=== PATIENT | female | born 1945 | race African-American/Black ===

== ENCOUNTER 2016-05-11 03:28 | Observation (INO) | payer MEDICARE, BC ==
[2016-05-11] MEDS ORDERED: ASPIRIN 81 MG TABLET, CHEWABLE PO ONE (04:27)
[2016-05-11 05:11] LABS: ABSOLUTE EOSINOPHILS # (AUTO) 0.1 10^3/uL (0.0-0.6); ABSOLUTE LYMPHOCYTES (AUTO) 1.4 10^3/uL (0.5-4.7); ABSOLUTE MONOCYTES (AUTO) 0.7 10^3/uL (0.1-1.4); ABSOLUTE NEUT (AUTO) 3.6 10^3/uL (1.7-8.2); BASOPHILS % (AUTO) 0.8 % (0-2); EOSINOPHILS % (AUTO) 2.3 % (0-6); HEMATOCRIT 20.2 % (36.0-47.0); HGB HCT DIFFERENCE -0.4; LYMPHOCYTES % (AUTO) 24.4 % (13-45); MEAN CORPUSCULAR HEMOGLOBIN 24.7 pg (27.0-33.4); MEAN CORPUSCULAR HGB CONC 32.5 g/dL (32.0-36.0); MEAN CORPUSCULAR VOLUME 76 fl (80-97); RED BLOOD COUNT 2.66 10^6/uL (3.72-5.28); RED CELL DISTRIBUTION WIDTH 18.2 % (11.5-14.0); SEGMENTED NEUTROPHILS % (AUTO) 60.5 % (42-78); WHITE BLOOD COUNT 5.9 10^3/uL (4.0-10.5)
[2016-05-11 05:24] LABS: ALANINE AMINOTRANSFERASE 15 U/L (9-52); ALBUMIN 3.4 g/dL (3.5-5.0); ALKALINE PHOSPHATASE 52 U/L (38-126); ANION GAP 8 (5-19); ASPARTATE AMINO TRANSFERASE 17 U/L (14-36); BILIRUBIN,TOTAL 0.4 mg/dL (0.2-1.3); BLOOD UREA NITROGEN 23 mg/dL (7-20); CALCIUM 9.5 mg/dL (8.4-10.2); CARBON DIOXIDE 24 mmol/L (22-30); CHLORIDE 108 mmol/L (98-107); CREATINE KINASE 36 U/L (30-135); CREATININE RESULT 1.29 mg/dL (0.52-1.25); GLUCOSE 92 mg/dL (75-110); SODIUM 139.9 mmol/L (137-145)
[2016-05-11 05:26] LABS: HEMOGLOBIN 6.6 g/dL (12.0-15.5)
[2016-05-11 05:38] LABS: CREATINE KINASE MB < 0.22 ng/mL (<4.55); TROPONIN I < 0.012 ng/mL
--- NOTE | 2016-05-11 08:30 | EKG REPORT ---
SEVERITY:- BORDERLINE ECG - SINUS RHYTHM PROBABLE LEFT ATRIAL ABNORMALITY BORDERLINE T ABNORMALITIES, INFERIOR LEADS : Confirmed by: Shena Jorgensen 11-May-2016 08:30:33
[2016-05-11] MEDS ORDERED: NORMAL SALINE 250 ML IV PRN (08:56)
--- NOTE | 2016-05-11 09:02 | ER Document Report ---
ED General <LUANN ALVA - Last Filed: 05/11/16 10:33> - General Mode of Arrival: Ambulatory Information source: Patient TRAVEL OUTSIDE OF THE [place] IN LAST 30 DAYS: No - HPI Patient complains to provider of: chest pain Onset/Duration: Sudden, Constant, Worse Quality of pain: Pressure Associated symptoms: Weakness Exacerbated by: Denies Relieved by: Denies <KHUSHBU FITCH - Last Filed: 06/10/16 13:55> - General Chief Complaint: Chest Pain Stated Complaint: CHEST PAIN Notes: Patient is a 71-year-old female presenting to the emergency department concerned of sternal chest pain onset 05/08/2016. Patient states the pain feels more like a pressure and it has been constant, worse today. Patient states she's been weak and tired for the past 2 weeks. Patient denies blood in her stool, rectal bleeding, or cough/ congestion. Patient has a history of hypertension, hyperlipidemia, diabetes, smoking, MT, and cardiac catheterization. Patient's primary care physician is Dr. Alfredo. (KHUSHBU FITCH) - Related Data Allergies/Adverse Reactions: No Known Drug Allergies Allergy (Verified 05/11/16 03:41) sesonal allergy Allergy (Uncoded 03/14/14 14:29) Home Medications: Current Home Medications Amlodipine Besylate [Norvasc 10 mg Tablet] 5 mg PO DAILY 05/11/16 [History] Aspirin [Ecotrin 81 mg EC Tablet] 81 g PO DAILY 05/11/16 [History] Carvedilol [Coreg 25 mg Tablet] 25 mg PO BID 05/11/16 [History] Clopidogrel Bisulfate [Clopidogrel] 75 mg PO DAILY 05/11/16 [History] Fenofibrate Nanocrystallized [Tricor 145 mg Tablet] 145 mg PO DAILY 05/11/16 [ History] Hydrochlorothiazide [Hydrodiuril 12.5 mg Capsule] 12.5 mg PO DAILY 05/11/16 [ History] Losartan Potassium [Cozaar 50 mg Tablet] 50 mg PO DAILY 05/11/16 [History] Nateglinide [Starlix] 120 mg PO TID 05/11/16 [History] Past Medical History <LUANN ALVA - Last Filed: 05/11/16 10:33> - General Information source: Patient - Social History Smoking Status: Current Every Day Smoker Chew tobacco use (# tins/day): No Frequency of alcohol use: None Drug Abuse: None Lives with: Spouse/Significant other Family History: Reviewed & Not Pertinent - Past Medical History Cardiac Medical History: Reports: Hx Heart Attack, Hx Hypercholesterolemia, Hx Hypertension Pulmonary Medical History: Reports: Hx Pneumonia - As a child Neurological Medical History: Denies: Hx Cerebrovascular Accident Endocrine Medical History: Reports: Hx Diabetes Mellitus Type 2 Renal/ Medical History: Denies: Hx Peritoneal Dialysis Musculoskeltal Medical History: Reports Hx Arthritis - Everywhere Psychiatric Medical History: Denies: Hx Depression Past Surgical History: Reports: Hx Appendectomy, Hx Cardiac Catheterization - w/ stent, Hx Cholecystectomy - Immunizations Hx Diphtheria, Pertussis, Tetanus Vaccination: Yes <KHUSHBU FITCH - Last Filed: 06/10/16 13:55> - Medical History Notes: Hx anemia with blood transfusion (KHUSHBU FITCH) Review of Systems - Review of Systems Constitutional: See HPI, Malaise, Weakness EENT: No symptoms reported Cardiovascular: See HPI, Chest pain - Pressure Respiratory: No symptoms reported. denies: Cough Gastrointestinal: No symptoms reported. denies: Blood streaked bowels, Rectal bleeding Genitourinary: No symptoms reported Female Genitourinary: No symptoms reported Musculoskeletal: No symptoms reported Skin: No symptoms reported Hematologic/Lymphatic: No symptoms reported Neurological/Psychological: No symptoms reported -: Yes All other systems reviewed and negative <KHUSHBU FITCH - Last Filed: 06/10/16 13:55> Physical Exam - General General appearance: Alert - HEENT Head: Normocephalic, Atraumatic Eyes: Normal Pupils: PERRL - Respiratory Respiratory status: No respiratory distress Chest status: Tender - Mid chest wall mildly tender to palpation. Breath sounds: Normal Chest palpation: Normal - Cardiovascular Rhythm: Regular Heart sounds: Normal auscultation Murmur: No - Abdominal Inspection: Normal Distension: No distension Bowel sounds: Normal Tenderness: Nontender Organomegaly: No organomegaly - Rectal Hemorrhoids: None - No external hemorrhoids. - Back Back: Normal, Nontender - Extremities General upper extremity: Normal inspection General lower extremity: Normal inspection - Neurological Neuro grossly intact: Yes Cognition: Normal [place] Coma Scale Eye Opening: Spontaneous [place] Coma Scale Verbal: Oriented Derian Coma Scale Motor: Obeys Commands [place] Coma Scale Total: 15 Speech: Normal - Psychological Associated symptoms: Normal affect, Normal mood - Skin Skin Temperature: Warm Skin Moisture: Dry Skin Color: Pale <KHUSHBU FITCH - Last Filed: 06/10/16 13:55> - Vital signs Vitals: Temp Pulse Resp BP Pulse Ox 98.1 F 71 16 169/64 H 100 05/11/16 03:42 05/11/16 03:42 05/11/16 03:42 05/11/16 03:42 05/11/16 03:42 Course - Laboratory Result Diagrams: 05/11/16 04:55 05/11/16 04:55 - EKG Interpretation by Me EKG shows normal: Sinus rhythm, Hancock, Intervals, QRS Complexes. abnormal: ST-T Waves - Borderline inferior T abnormalities Rate: Normal - 73 Rhythm: NSR P Waves: LAE When compared to previous EKG there are: No significant change - Consults Dr. Alfredo Time consulted: 10:20 Consulted provider: will see as inpatient <LUANN ALVA - Last Filed: 05/11/16 10:33> - Laboratory Result Diagrams: 05/11/16 19:10 05/11/16 04:55 <KHUSHBU FITCH - Last Filed: 06/10/16 13:55> - Re-evaluation Re-evalutation: 05/11/16 10:33 Stool is heme negative (LUANN ALVA) - Vital Signs Vital signs: Temp Pulse Resp BP Pulse Ox 98.0 F 74 16 162/74 H 100 05/11/16 20:24 05/11/16 20:24 05/11/16 20:24 05/11/16 20:24 05/11/16 20:24 - Laboratory Laboratory results interpreted by me: 05/11/16 05/11/16 05/11/16 04:55 04:55 04:55 RBC 2.66 L Hgb 6.6 L Hct 20.2 L MCV 76 L MCH 24.7 L RDW 18.2 H Retic Count (auto) 3.83 H Chloride 108 H BUN 23 H Creatinine 1.29 H Est GFR ( Amer) 49 L Est GFR (Non-Af Amer) 41 L Iron Ferritin Total Protein 6.0 L Albumin 3.4 L Crossmatch 05/11/16 05/11/16 04:55 09:10 RBC Hgb Hct MCV MCH RDW Retic Count (auto) Chloride BUN Creatinine Est GFR ( Amer) Est GFR (Non-Af Amer) Iron 28.5 L Ferritin 9.02 L Total Protein Albumin Crossmatch See Detail Discharge - Discharge Admitting Provider: [facility] Unit Admitted: Telemetry <LUANN ALVA - Last Filed: 05/11/16 10:33> <KHUSHBU FITCH - Last Filed: 06/10/16 13:55> - Discharge Clinical Impression: Iron deficiency anemia Qualifiers: Iron deficiency anemia type: unspecified iron deficiency Qualified Code(s): D50.9 - Iron deficiency anemia, unspecified Chest pain Qualifiers: Chest pain type: unspecified Qualified Code(s): R07.9 - Chest pain, unspecified Scribe Documentation - Scribe Written by Scribe:: Khushbu Fitch 05/11/2016 0857 acting as scribe for :: Colton <KHUSHBU FITCH - Last Filed: 06/10/16 13:55>
[2016-05-11 09:58] LABS: APPEARANCE,URINE CLEAR; BILIRUBIN,URINE NEGATIVE (NEGATIVE); GLUCOSE, URINE NEGATIVE (NEGATIVE); KETONES,URINE NEGATIVE (NEGATIVE); LEUKOCYTE ESTERASE,URINE NEGATIVE (NEGATIVE); NITRITE,URINE NEGATIVE (NEGATIVE); PROTEIN,URINE NEGATIVE (NEGATIVE); URINE SPECIFIC GRAVITY 1.005; UROBILINOGEN,URINE NEGATIVE mg/dL (<2.0)
[2016-05-11 10:10] LABS: FERRITIN 9.02 ng/mL (11.1-264.0)
[2016-05-11 10:40] LABS: FOLATE 6.53 ng/mL (>2.76)
[2016-05-11] MEDS ORDERED: DEXTROSE 40% GEL 15 GM TUBE PO PRN ×2 (14:49)
[2016-05-11] MEDS ORDERED: INSULIN LISPRO 100 UNIT/ML 3 ML VIAL SUBCUT PRN (14:49)
[2016-05-11] MEDS ORDERED: DEXTROSE 50%-WATER 25 GM/50 ML DISP.SYRIN IV PRN ×2 (14:49)
[2016-05-11] MEDS ORDERED: GLUCAGON,HUMAN RECOMB 1 MG INJ IM PRN (14:49)
[2016-05-11] MEDS ORDERED: (PENDING PHARMACY ID) (Nateglinide [Starlix] 120 MG) PO SCH (15:00)
[2016-05-11] MEDS ORDERED: AMLODIPINE BESYLATE 10 MG TABLET PO SCH (15:00)
[2016-05-11] MEDS ORDERED: AMLODIPINE BESYLATE 5 MG TABLET PO ONE (15:30)
[2016-05-11] MEDS ORDERED: FENOFIBRATE NANOCRYSTALLIZED 145 MG TABLET PO ONE (15:30)
[2016-05-11] MEDS ORDERED: AMLODIPINE BESYLATE 10 MG TABLET PO ONE (15:30)
[2016-05-11] MEDS ORDERED: LOSARTAN POTASSIUM 50 MG TABLET PO ONE (15:30)
[2016-05-11] MEDS ORDERED: HYDROCHLOROTHIAZIDE 12.5 MG CAPSULE PO ONE (15:30)
[2016-05-11] MEDS ORDERED: NATEGLINIDE 60 MG TABLET PO SCH (16:00)
[2016-05-11] MEDS ORDERED: CLONIDINE HCL 0.2 MG TABLET PO ONE (18:45)
[2016-05-11 19:23] LABS: ABSOLUTE EOSINOPHILS # (AUTO) 0.1 10^3/uL (0.0-0.6); ABSOLUTE LYMPHOCYTES (AUTO) 1.6 10^3/uL (0.5-4.7); ABSOLUTE MONOCYTES (AUTO) 0.7 10^3/uL (0.1-1.4); ABSOLUTE NEUT (AUTO) 4.1 10^3/uL (1.7-8.2); BASOPHILS % (AUTO) 0.5 % (0-2); HEMATOCRIT 30.2 % (36.0-47.0); HGB HCT DIFFERENCE 0.1; LYMPHOCYTES % (AUTO) 24.6 % (13-45); MEAN CORPUSCULAR HEMOGLOBIN 26.2 pg (27.0-33.4); MEAN CORPUSCULAR HGB CONC 33.3 g/dL (32.0-36.0); MEAN CORPUSCULAR VOLUME 79 fl (80-97); MONOCYTES % (AUTO) 10.9 % (3-13); RED BLOOD COUNT 3.84 10^6/uL (3.72-5.28); WHITE BLOOD COUNT 6.6 10^3/uL (4.0-10.5)
[2016-05-11 19:32] LABS: HEMOGLOBIN 10.1 g/dL (12.0-15.5)
[2016-05-11 20:05] VITALS: BP 162/74
--- NOTE | 2016-05-11 20:14 | PDOC H&P ---
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 Patient feels better and she be discharged home today Past Medical History Cardiac Medical History: Reports: Hyperlipidema, Hypertension Pulmonary Medical History: Reports: Pneumonia - As a child Endocrine Medical History: Reports: Diabetes Mellitus Type 2 Musculoskeltal Medical History: Reports: Arthritis - Everywhere Hematology: Reports: Anemia Past Surgical History Past Surgical History: Reports: Appendectomy, Cardiac Catheterization - w/stent , Cholecystectomy Social History Lives with: Spouse/Significant other Smoking Status: Current Some Day Smoker Cigarettes Packs Per Day: 4 Number of Years Smokin Frequency of Alcohol Use: None Hx Recreational Drug Use: No Drugs: None Hx Prescription Drug Abuse: No - Advance Directive Resuscitation Status: Full Code Family History Family History: Reviewed & Not Pertinent Parental Family History Reviewed: Yes Children Family History Reviewed: Yes Sibling(s) Family History Reviewed.: Yes Medication/Allergy Home Medications: Amlodipine Besylate [Norvasc 10 mg Tablet] 5 mg PO DAILY 05/11/16 Aspirin [Ecotrin 81 mg EC Tablet] 81 g PO DAILY 05/11/16 Carvedilol [Coreg 25 mg Tablet] 25 mg PO BID 05/11/16 Clopidogrel Bisulfate [Clopidogrel] 75 mg PO DAILY 05/11/16 Fenofibrate Nanocrystallized [Tricor 145 mg Tablet] 145 mg PO DAILY 05/11/16 Hydrochlorothiazide [Hydrodiuril 12.5 mg Capsule] 12.5 mg PO DAILY 05/11/16 Losartan Potassium [Cozaar 50 mg Tablet] 50 mg PO DAILY 05/11/16 Nateglinide [Starlix] 120 mg PO TID 05/11/16 Allergies/Adverse Reactions: No Known Drug Allergies Allergy (Verified 05/11/16 03:41) sesonal allergy Allergy (Uncoded 03/14/14 14:29) Review of Systems Constitutional: ABSENT: chills, fever(s), headache(s), weight gain, weight loss Eyes: ABSENT: visual disturbances Ears: ABSENT: hearing changes Cardiovascular: PRESENT: dyspnea on exertion Respiratory: ABSENT: cough, hemoptysis Gastrointestinal: ABSENT: abdominal pain, constipation, diarrhea, hematemesis, hematochezia, nausea, vomiting Genitourinary: ABSENT: dysuria, hematuria Musculoskeletal: ABSENT: joint swelling Integumentary: ABSENT: rash, wounds Neurological: ABSENT: abnormal gait, abnormal speech, confusion, dizziness, focal weakness, syncope Psychiatric: ABSENT: anxiety, depression, homidical ideation, suicidal ideation Endocrine: ABSENT: cold intolerance, heat intolerance, menstrual abnormalities, polydipsia, polyuria Hematologic/Lymphatic: ABSENT: easy bleeding, easy bruising, lymphadenopathy Physical Exam Vital Signs: Temp Pulse Resp BP Pulse Ox 98.0 F 74 16 162/74 H 100 05/11/16 20:03 05/11/16 20:03 05/11/16 20:03 05/11/16 20:03 05/11/16 20:03 Intake & Output 05/10/16 05/11/16 05/12/16 06:59 06:59 06:59 Intake Total 300 Balance 300 General appearance: PRESENT: no acute distress, well-developed, well-nourished Head exam: PRESENT: atraumatic, normocephalic Eye exam: PRESENT: conjunctiva pink, EOMI, PERRLA Ear exam: PRESENT: normal external ear exam Mouth exam: PRESENT: moist, tongue midline Neck exam: PRESENT: full ROM Respiratory exam: PRESENT: clear to auscultation kenney Cardiovascular exam: PRESENT: RRR, +S1, +S2 Pulses: PRESENT: normal dorsalis pedis pul, +2 pedal pulses bilateral Vascular exam: PRESENT: normal capillary refill GI/Abdominal exam: PRESENT: normal bowel sounds, soft Rectal exam: PRESENT: deferred Neurological exam: PRESENT: alert, awake, oriented to person, oriented to place , oriented to time, oriented to situation, CN II-XII grossly intact Psychiatric exam: PRESENT: appropriate affect, normal mood Skin exam: PRESENT: dry, intact, warm Results Laboratory Results: 05/11/16 19:10 05/11/16 19:10 WBC 6.6 RBC 3.84 Hgb 10.1 L D Hct 30.2 L MCV 79 L MCH 26.2 L MCHC 33.3 RDW 17.0 H Plt Count 256 Seg Neutrophils % 62.0 Lymphocytes % 24.6 Monocytes % 10.9 Eosinophils % 2.0 Basophils % 0.5 Absolute Neutrophils 4.1 Absolute Lymphocytes 1.6 Absolute Monocytes 0.7 Absolute Eosinophils 0.1 Absolute Basophils 0.0 Impressions: Chest X-Ray 05/11/16 04:27 IMPRESSION: HEART ENLARGED WITHOUT FAILURE. NO OTHER SIGNIFICANT RADIOGRAPHIC FINDING IN THE CHEST. Assessment & Plan - Diagnosis (1) Iron deficiency anemia due to chronic blood loss Is this a current diagnosis for this admission?: YesPlan: Patient was admitted for observation and blood transfusion, she was transfused with 2 units of packed red blood cells
[2016-05-11] MEDS ORDERED: CARVEDILOL 12.5 MG TABLET PO SCH (22:00)
[2016-05-12] MEDS ORDERED: FENOFIBRATE NANOCRYSTALLIZED 145 MG TABLET PO SCH (10:00)
[2016-05-12] MEDS ORDERED: LOSARTAN POTASSIUM 50 MG TABLET PO SCH (10:00)
[2016-05-12] MEDS ORDERED: AMLODIPINE BESYLATE 5 MG TABLET PO SCH (10:00)
[2016-05-12] MEDS ORDERED: HYDROCHLOROTHIAZIDE 12.5 MG CAPSULE PO SCH (10:00)
== END 2016-05-11 21:24 | disposition home or self-care (01) ==
LOC: ER 03:28 → UNDOADMOB 11:09 → EH 11:09 → 3S 17:49
PROVIDERS: ADMIT Internal Medicine; ATTEND Internal Medicine
PROC: 30233N1 Transfusion of Nonautologous Red Blood Cells into Peripheral Vein, Percutaneous Approach (ICD-10-PCS; principal; 2016-05-11)
DX: D50.0 Iron deficiency anemia secondary to blood loss (chronic) (principal); I10 Essential (primary) hypertension; E78.5 Hyperlipidemia, unspecified; E11.9 Type 2 diabetes mellitus without complications; F17.210 Nicotine dependence, cigarettes, uncomplicated; I25.2 Old myocardial infarction
CPT/HCPCS: 93005; 99285; 86900; 86901; 36415; 82553; 36430; 86850; 82962; 82607; 82550; 82728; 82746; 83540; 83550; 85025; 82272; 85045; 80053; 81001; 84484; 84466; 86920; 71010; 93010; G0378 ×2; P9016; A9270 ×7; J3490

== ENCOUNTER 2016-07-21 14:48 | Day surgery (SDC) | payer MEDICARE, BC ==
[~2016-07-21 14:48] MED LIST: DIPHENHYDRAMINE HCL 50 MG/ML VIAL IV PRN; EPINEPHRINE INJ 1 MG/10 ML DISP.SYRIN ONE; FENTANYL CITRATE INJ/PF 100 MCG/2 ML AMPUL IV PRN; FLUMAZENIL INJ 0.5 MG/5 ML VIAL IV ONE; GLUCAGON,HUMAN RECOMB 1 MG INJ ONE; MEPERIDINE HCL/PF INJ 25 MG/1 ML DISP.SYRIN IV PRN; MIDAZOLAM 2 MG/2 ML INJ ONE; MORPHINE SULFATE 10 MG/ML INJ IV PRN; NALOXONE HCL INJ/PF 0.4 MG/1 ML SDV ONE; ONDANSETRON HCL INJ/PF 4 MG/2 ML SDV IV PRN; OXYCODONE-ACETAMINOPHEN 5-325 MG TABLET PO PRN; PROMETHAZINE HCL INJ 25 MG/1 ML VIAL IV PRN
[2016-07-21] MEDS: FENTANYL CITRATE INJ/PF 100 MCG/2 ML AMPUL ONE ×2 (16:58→17:03)
--- NOTE | 2016-07-21 17:18 | Operative Report ---
Operative Report DATE OF SURGERY: 07/21/16 Operative Report: Pre-op diagnosis: Iron deficiency anemia and angiodysplasia noted on capsule endoscopy Post-op diagnosis: Multiple jejunal angiodysplasia Surgery: Esophagogastroduodenoscopy with enteroscopy and argon plasma coagulation Medications: Versed 2mg Fentanyl 100mcg IV push Tissue removed: None Procedure: After informed consent obtained from patient, the throat was sprayed with Hurricane and conscious sedation was achieved. The upper endoscope was inserted into the esophagus under direct vision and advanced into the stomach. The duodenum was entered and the scope passed to 40-50 cm beyond the ligament of Treitz. Endoscope was then slowly pulled out of the patient as the mucosa was examined into details. Four small angiodysplasia one of which was actively bleeding were treated in the small bowel. Patient tolerated procedure well. Findings Esophagus: Normal Z-line at: 40 cm Antrum: Mild erythema Body: Normal Fundus: Normal Duodenum first part: Normal Duodenum second part: Normal Jejunum: Four angiodysplasia treated with APC Plan: Follow H&H and transfuse as needed OPERATION: .
--- NOTE | 2016-07-21 17:22 | PDOC DISCHARGE SUMMARY ---
Discharge Summary (SDC) - Discharge Final Diagnosis: Small bowel angiodysplasia Date of Surgery: 07/21/16 Condition: Stable Treatment or Instructions: Resume Plavix on 07/23/2016. Continue aspirin from today Discharge Diet: As Tolerated Discharge Activity: Activity As Tolerated Report the Following to Your Physician Immediately: Nausea, Vomiting, Swelling, Warmth, Increased Soreness
[2016-07-21 18:12] VITALS: BP 145/76
== END 2016-07-21 18:15 | disposition home or self-care (01) ==
LOC: END 14:48
PROVIDERS: ATTEND Internal Medicine Gastroenterology
PROC: 0W3P8ZZ Control Bleeding in Gastrointestinal Tract, Via Natural or Artificial Opening Endoscopic (ICD-10-PCS; principal; 2016-07-21 15:30)
DX: K31.811 Angiodysplasia of stomach and duodenum with bleeding (principal); D50.0 Iron deficiency anemia secondary to blood loss (chronic); I10 Essential (primary) hypertension; I25.10 Atherosclerotic heart disease of native coronary artery without angina pectoris
CPT/HCPCS: 44366; 82962; J2250; J0171; J1610; J2310; J3010; J3490

== ENCOUNTER → 2016-08-05 | Outpatient (CLI) | payer MEDICARE, BC | LOC: WI 13:30 | PROVIDERS: ATTEND Internal Medicine | DX: Z12.31 Encounter for screening mammogram for malignant neoplasm of breast (principal) | CPT/HCPCS: 77067; G0202 ==

== ENCOUNTER → 2017-08-20 | Outpatient (CLI) | payer MEDICARE, OTHER ==
--- NOTE | 2017-08-23 12:46 | WOMENS IMAGING REPORT ---
EXAM DESCRIPTION: 3D SCREENING MAMMO BILAT COMPLETED DATE/TIME: 08/20/2017 8:54 am REASON FOR STUDY: SCREENING MAMMO Z12.31 ENCNTR SCREEN MAMMOGRAM FOR MALIGNANT NEOPLASM OF FLAKO COMPARISON: 08/05/2016, 05/27/2015, and 05/25/2014. TECHNIQUE: Standard craniocaudal and mediolateral oblique views of each breast recorded using digita l acquisition and breast tomosynthesis. LIMITATIONS: None. FINDINGS: RIGHT BREAST MASSES: No suspicious masses. CALCIFICATIONS: No new or suspicious calcifications. ARCHITECTURAL DISTORTION: None. DEVELOPING DENSITY: None. ASYMMETRY: None noted. OTHER: No other significant findings. LEFT BREAST MASSES: No suspicious masses. CALCIFICATIONS: Cluster of increasing calcifications in the lower outer breast, located 11 cm from th e nipple. Other calcifications in the breasts appear unchanged. ARCHITECTURAL DISTORTION: None. DEVELOPING DENSITY: None. ASYMMETRY: None noted. OTHER: No other significant findings. Read with the assistance of CAD. .[facility] - R2 Cenova Version 1.3 .[facility] Imaging - R2 Cenova Version 1.3 .[facility] - R2 Cenova Version 2.4 .[facility] - R2 Cenova Version 2.4 .[facility] - R2 [employer] Internship Version 9.2 IMPRESSION: Cluster of increasing calcifications in the lower outer left breast. Stable mammographi c appearance of the right breast. BREAST DENSITY: c. The breasts are heterogeneously dense, which may obscure small masses. BIRAD: 0 Incomplete: Needs Additional Imaging Evaluation and/or prior Mammograms for Comparison. RECOMMENDATION: RECOMMENDED FOLLOW-UP: Recommend additional evaluation with magnification views of t he left breast. Recommend routine screening mammography of the right breast. The patient will be contacted for additional imaging. COMMENT: The patient has been notified of the results by letter per SA requirements. Additional no tification policies are in place for contacting patient with suspicious or incomplete findings. Quality ID #[id number]: The [employer] recommends an annual screening mammogram for women aged 40 years or over. This facility utilizes a reminder system to ensure that all patients receive reminder letters, and/or direct phone calls for appointments. This includes reminders for routine scr eening mammograms, diagnostic mammograms, or other Breast Imaging Interventions when appropriate. Th is patient will be placed in the appropriate reminder system. The [employer] (ACR) has developed recommendations for screening MRI of the breast s in certain patient populations, to be used in conjunction with mammography. Breast MRI surveillanc e may be appropriate for women with more than 20% lifetime risk of developing breast cancer as deter mined by genetic testing, significant family history of the disease, or history of mantle radiation f or Hodgkins Disease. ACR Practice Guidelines 2008. DBT Technology DBT is a type of tomographic mammography. With conventional mammography, overlapping breast tissue ma y make lesions difficult to detect, even with good compression. DBT uses an x-ray tube that rotates a round the breast, taking images at different angles. These images are then combined to create thin sl ices of the breast that the radiologist can view as a 3D reconstruction. The [employer] unit can perform full-field digital mammograms (2D imaging); or DBT (3D imaging); or both, in a combination mode that quickly performs both the mammogram and the tomosynthesis scan while the breast is still compressed. PQRS 6045F: Fluoroscopic imaging is not utilized for breast tomosynthesis. TECHNICAL DOCUMENTATION: FINDING NUMBER: (1) ASSESSMENT: (1) JOB ID: [id number] [employer]- All Rights Reserved Reading location - IP/workstation name: [email or web address]-[email or web address]
== END ==
LOC: WI 12-14 08:45
PROVIDERS: ATTEND Internal Medicine
DX: Z12.31 Encounter for screening mammogram for malignant neoplasm of breast (principal); R92.0 Mammographic microcalcification found on diagnostic imaging of breast
CPT/HCPCS: 77063; 77067

== ENCOUNTER → 2017-08-27 | Outpatient (CLI) | payer MEDICARE, BC | LOC: WI 08:37 | PROVIDERS: ATTEND Internal Medicine | DX: R92.0 Mammographic microcalcification found on diagnostic imaging of breast (principal) ==

== ENCOUNTER → 2018-07-22 | Outpatient (CLI) | payer MEDICARE ==
--- NOTE | 2018-07-22 13:36 | RADIOLOGY REPORT (SQ) ---
EXAM DESCRIPTION: HIP RIGHT AP/LATERAL COMPLETED DATE/TIME: 07/22/2018 1:23 pm REASON FOR STUDY: PAIN IN RT HIP M25.551 PAIN IN RIGHT HIP COMPARISON: None. NUMBER OF VIEWS: Two views. TECHNIQUE: AP and frog-leg view of the right hip. LIMITATIONS: None. FINDINGS: MINERALIZATION: Normal. RIGHT HIP: No acute fracture dislocation. No suspicious lesions. Mild joint space narrowing. There is subchondral sclerosis. OPPOSITE HIP: Left hip demonstrates mild joint space narrowing and subchondral sclerosis. SOFT TISSUES: There is vascular calcification. OTHER: No other significant finding. 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 No acute findings. TECHNICAL DOCUMENTATION: JOB ID: [id number] [employer]- All Rights Reserved Reading location - IP/workstation name: [email or web address]
== END ==
LOC: OD 12:51
PROVIDERS: ATTEND Internal Medicine
DX: M25.551 Pain in right hip (principal)

== ENCOUNTER → 2019-04-07 | Outpatient (CLI) | payer MEDICARE ==
[2019-04-07 11:48] LABS: HEMATOCRIT 34.4 % (36.0-47.0); HEMOGLOBIN 12.3 g/dL (12.0-15.5); MEAN CORPUSCULAR HEMOGLOBIN 28.4 pg (27.0-33.4); MEAN CORPUSCULAR HGB CONC 35.8 g/dL (32.0-36.0); MEAN CORPUSCULAR VOLUME 79 fl (80-97); PLATELET COUNT 286 10^3/uL (150-450); RED BLOOD COUNT 4.34 10^6/uL (3.72-5.28); RED CELL DISTRIBUTION WIDTH 14.9 % (11.5-14.0); WHITE BLOOD COUNT 7.7 10^3/uL (4.0-10.5)
[2019-04-07 12:07] LABS: ALBUMIN 3.9 g/dL (3.5-5.0); ALKALINE PHOSPHATASE 51 U/L (38-126); ANION GAP 13 (5-19); ASPARTATE AMINO TRANSFERASE 19 U/L (14-36); BILIRUBIN,DIRECT 0.5 mg/dL (0.0-0.4); BILIRUBIN,TOTAL 0.5 mg/dL (0.2-1.3); BLOOD UREA NITROGEN 25 mg/dL (7-20); CALCIUM 9.7 mg/dL (8.4-10.2); CARBON DIOXIDE 25 mmol/L (22-30); CHLORIDE 94 mmol/L (98-107); GLUCOSE 105 mg/dL (75-110); POTASSIUM 4.6 mmol/L (3.6-5.0); TOTAL PROTEIN 7.4 g/dL (6.3-8.2)
== END ==
LOC: OD 11:07
PROVIDERS: ATTEND Internal Medicine Gastroenterology
DX: R10.13 Epigastric pain (principal)
CPT/HCPCS: 36415; 80048; 80076; 83690; 85027

== ENCOUNTER → 2019-04-13 | Outpatient (CLI) | payer MEDICARE ==
--- NOTE | 2019-04-13 13:06 | RADIOLOGY REPORT (SQ) ---
EXAM DESCRIPTION: CT ABDOMEN WITH IV ORAL CONT COMPLETED DATE/TIME: 04/13/2019 10:46 am REASON FOR STUDY: R10.13 EPIGASTRIC PAIN, K86.9 DISEASE OF PANCREAS, UNSPECIFIED R10.13 EPIGASTRIC PAIN K86.9 DISEASE OF PANCREAS, UNSPECIFIED COMPARISON: None. TECHNIQUE: CT scan of the abdomen performed with intravenous and with oral contrast using helical sc anning technique with dynamic intravenous contrast injection. Images reviewed with lung, soft tissue, and bone windows. Reconstructed coronal and sagittal MPR images reviewed. Delayed images for evaluat ion of the urinary system also acquired and evaluated. All images stored on PACS. All CT scanners at this facility use dose modulation, iterative reconstruc tion, and/or weight based dosing when appropriate to reduce radiation dose to as low as reasonably ac hievable (ALARA). [facility]: Dose Right [facility]: CareDose [facility]: Dose Right [facility]: Teradose 4D [facility]: [employer] CONTRAST TYPE AND DOSE: contrast/concentration: Isovue 350.00 mg/ml; Total Contrast Delivered: 78.0 ml; Total Saline Delivered: 67.0 ml RENAL FUNCTION: Creatinine 1.4 RADIATION DOSE: CT Rad equipment meets quality standard of care and radiation dose reduction techniq ues were employed. CTDIvol: 3.4 - 3.4 mGy. DLP: 244 mGy-cm. . LIMITATIONS: None. FINDINGS: LOWER CHEST: See separate report of the CT of the chest. LIVER: Normal size. No masses. No dilated ducts. SPLEEN: Normal size. No focal lesions. PANCREAS: No masses. No significant calcifications. No adjacent inflammation or peripancreatic fluid collections. Pancreatic duct not dilated. GALLBLADDER: No identified stones by CT criteria. No inflammatory changes to suggest cholecystitis. ADRENAL GLANDS: No significant masses or asymmetry. RIGHT KIDNEY AND URETER: Hypoplastic right kidney. No stones. No hydronephrosis. . LEFT KIDNEY AND URETER: Compensatory hypertrophy. No significant calcifications. No hydronephrosi s or hydroureter. AORTA AND VESSELS: No aneurysm. No dissection. Renal arteries, SMA, celiac without stenosis. RETROPERITONEUM: No retroperitoneal adenopathy, hemorrhage or masses. BOWEL AND PERITONEAL CAVITY: No masses or inflammatory changes. No free fluid or peritoneal masses. APPENDIX: Not included. ABDOMINAL WALL: No masses. No hernias. BONES: No significant or acute findings. OTHER: No other significant finding. 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 No acute findi ngs in the abdomen. TECHNICAL DOCUMENTATION: JOB ID: [id number] Quality ID # [id number]: Final reports with documentation of one or more dose reduction techniques (e.g., Au tomated exposure control, adjustment of the mA and/or kV according to patient size, use of iterative reconstruction technique) 2010 [employer]- All Rights Reserved Reading location - IP/workstation name: [email or web address]
== END ==
LOC: RAD 10:05
PROVIDERS: ATTEND Internal Medicine Gastroenterology
DX: R10.13 Epigastric pain (principal); K86.9 Disease of pancreas, unspecified
CPT/HCPCS: 74160; 82565

== ENCOUNTER → 2019-06-06 | Outpatient (CLI) | payer MEDICARE ==
[2019-06-06 10:46] LABS: ABSOLUTE BASOPHILS # (AUTO) 0.1 10^3/uL (0.0-0.2); ABSOLUTE EOSINOPHILS # (AUTO) 0.1 10^3/uL (0.0-0.6); ABSOLUTE LYMPHOCYTES (AUTO) 1.9 10^3/uL (0.5-4.7); ABSOLUTE MONOCYTES (AUTO) 0.7 10^3/uL (0.1-1.4); ABSOLUTE NEUT (AUTO) 6.9 10^3/uL (1.7-8.2); BASOPHILS % (AUTO) 0.8 % (0-2); EOSINOPHILS % (AUTO) 1.3 % (0-6); HEMATOCRIT 32.4 % (36.0-47.0); HEMOGLOBIN 11.8 g/dL (12.0-15.5); LYMPHOCYTES % (AUTO) 19.9 % (13-45); MEAN CORPUSCULAR HEMOGLOBIN 28.1 pg (27.0-33.4); MEAN CORPUSCULAR HGB CONC 36.4 g/dL (32.0-36.0); MEAN CORPUSCULAR VOLUME 77 fl (80-97); MONOCYTES % (AUTO) 7.3 % (3-13); PLATELET COUNT 486 10^3/uL (150-450); RED CELL DISTRIBUTION WIDTH 15.2 % (11.5-14.0); SEGMENTED NEUTROPHILS % (AUTO) 70.7 % (42-78); TOTAL CELLS COUNTED % (AUTO) 100 %; WHITE BLOOD COUNT 9.8 10^3/uL (4.0-10.5)
[2019-06-06 10:51] LABS: APPEARANCE,URINE CLOUDY; BILIRUBIN,URINE NEGATIVE (NEGATIVE); COLOR,URINE YELLOW; GLUCOSE, URINE NEGATIVE (NEGATIVE); KETONES,URINE NEGATIVE (NEGATIVE); LEUKOCYTE ESTERASE,URINE LARGE (NEGATIVE); NITRITE,URINE NEGATIVE (NEGATIVE); PROTEIN,URINE 100 mg/dL (NEGATIVE); URINE SPECIFIC GRAVITY 1.011
[2019-06-06 12:03] LABS: ANION GAP 13 (5-19); BLOOD UREA NITROGEN 15 mg/dL (7-20); CARBON DIOXIDE 26 mmol/L (22-30); CHLORIDE 89 mmol/L (98-107); GLUCOSE 107 mg/dL (75-110); PHOSPHORUS 3.8 mg/dL (2.5-4.5); POTASSIUM 4.4 mmol/L (3.6-5.0)
[2019-06-06 16:57] LABS: URINE SODIUM 60 mmol/L (30-90)
[2019-06-06 17:07] LABS: OSMOLALITY,URINE 334 mOsm/kg (300-900)
== END ==
LOC: OD 10:10
PROVIDERS: ATTEND Physician Assistant Medical
DX: E11.22 Type 2 diabetes mellitus with diabetic chronic kidney disease (principal); I12.9 Hypertensive chronic kidney disease with stage 1 through stage 4 chronic kidney disease, or unspecified chronic kidney disease; N18.3 Chronic kidney disease, stage 3 (moderate); D63.1 Anemia in chronic kidney disease; E87.1 Hypo-osmolality and hyponatremia; E87.5 Hyperkalemia
CPT/HCPCS: 36415; 80048; 81001; 83930; 83935; 83970; 84100; 84300; 85025

== ENCOUNTER → 2019-07-12 | Outpatient (CLI) | payer MEDICARE ==
--- NOTE | 2019-07-12 10:00 | RADIOLOGY REPORT (SQ) ---
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 Patient was given oral contrast. Images reviewed with lung, soft ti ssue, and bone windows. Reconstructed coronal and sagittal MPR images reviewed. Delayed images for ev aluation of the urinary system also acquired. All images stored on PACS. All CT scanners at this facility use dose modulation, iterative reconstruction, and/or weight based d osing when appropriate to reduce radiation dose to as low as reasonably achievable (ALARA). [facility]: Dose Right [facility]: CareDose [facility]: Dose Right [facility]: Teradose 4D [facility]: [employer] CONTRAST TYPE AND DOSE: contrast/concentration: Isovue 350.00 mg/ml; Total Contrast Delivered: 71.0 ml; Total Saline Delivered: 66.0 ml RENAL FUNCTION: Creatinine 1.2 RADIATION DOSE: . LIMITATIONS: None. FINDINGS: LOWER CHEST: See separate report of the CT of the chest. LIVER: Normal size. No masses. No dilated ducts. SPLEEN: Normal size. No focal lesions. PANCREAS: No masses. No significant calcifications. No adjacent inflammation or peripancreatic fluid collections. Pancreatic duct not dilated. GALLBLADDER: Surgically absent. ADRENAL GLANDS: No significant masses or asymmetry. RIGHT KIDNEY AND URETER: Atrophic right kidney. No focal mass. No significant calcifications. No hydronephrosis or hydroureter. LEFT KIDNEY AND URETER: There is compensatory hypertrophy of the left kidney. No solid mass. . No significant calcifications. No hydronephrosis or hydroureter. AORTA AND VESSELS: Aortoiliac atherosclerosis without aneurysm. No dissection. Renal arteries, SMA, c eliac without stenosis. Multifocal bilateral iliac disease with moderate to severe areas of narrowin g. RETROPERITONEUM: No retroperitoneal adenopathy, hemorrhage or masses. BOWEL AND PERITONEAL CAVITY: No evidence of intestinal obstruction. No focal bowel wall thickening. Scattered colonic diverticula. APPENDIX: Absent. PELVIS: No mass. No free fluid. Normal bladder. ABDOMINAL WALL: No masses. No hernias. BONES: No significant or acute findings. OTHER: No other significant finding. IMPRESSION: 1. No evidence of acute intra-abdominal/pelvic process. 2. Unchanged atrophic right kidney. 3. Aortoiliac atherosclerosis with likely multifocal moderate to severe iliac narrowing. Recommend correlation with lower extremity symptoms. 4. See same-day chest CT for findings above the diaphragm. TECHNICAL DOCUMENTATION: JOB ID: [id number] Quality ID # [id number]: Final reports with documentation of one or more dose reduction techniques (e.g., Au tomated exposure control, adjustment of the mA and/or kV according to patient size, use of iterative reconstruction technique) 2010 [employer]- All Rights Reserved Reading location - IP/workstation name: [email or web address]
--- NOTE | 2019-07-12 10:30 | RADIOLOGY REPORT (SQ) ---
EXAM DESCRIPTION: CT CHEST WITH IMAGES COMPLETED DATE/TIME: 07/12/2019 9:38 am REASON FOR STUDY: R06.02 SHORTNESS OF BREATH R63.4 ABNORMAL WEIGHT LOSS R06.02 SHORTNESS OF BREATH E11.42 TYPE 2 DIABETES MELLITUS WITH DIABETIC POLYNEUROPATHY COMPARISON: TECHNIQUE: CT scan of the chest performed using helical scanning technique with dynamic intravenous contrast injection. Images reviewed with lung, soft tissue and bone windows. Reconstructed coronal and sagittal MPR and MIP images reviewed. All images stored on PACS. All CT scanners at this facility use dose modulation, iterative reconstruction, and/or weight based d osing when appropriate to reduce radiation dose to as low as reasonably achievable (ALARA). [facility]: Dose Right [facility]: CareDose [facility]: Dose Right [facility]: Teradose 4D [facility]: [employer] CONTRAST TYPE AND DOSE: See abdomen RENAL FUNCTION: See abdomen RADIATION DOSE: CT Rad equipment meets quality standard of care and radiation dose reduction techniq ues were employed. CTDIvol: 4.5 - 4.6 mGy. DLP: 666 mGy-cm. . LIMITATIONS: None. FINDINGS: LUNGS AND PLEURA: There is not a regular solid mass involving the right lower lobe and hil um measuring approximately 6.2 x 3.5 cm (series 2, image 32). There is an area of cavitation within the inferior aspect. There is associated narrowing of the hilar vessels left at level and right lowe r lobe bronchi. There additional patchy areas of more peripheral ground-glass attenuation and consol idation within the right lower lobe, likely postobstructive atelectasis/pneumonia. Small additional areas of ground-glass attenuation within the right middle lobe (series 2, image 27) and left lower lo be (series 2, image 30), nonspecific. No significant pleural effusion. No pneumothorax. HILAR AND MEDIASTINAL STRUCTURES: Irregular right hilar mass as above. No additional discrete medias tinal or left hilar adenopathy. HEART AND VASCULAR STRUCTURES: Normal heart size. Scattered three-vessel coronary atherosclerosis. No pericardial effusion. HARDWARE: None in the chest. UPPER ABDOMEN: See separate report of the CT of the abdomen. THYROID AND OTHER SOFT TISSUES: No masses. No adenopathy. BONES: No acute bony abnormality. No discrete lytic or blastic osseous lesions. OTHER: No other significant finding. IMPRESSION: 1. Irregular solid mass within the right lower lobe and perihilar region measuring appr oximately 6.2 x 3.5 cm with small area of cavitation within the inferior aspect, highly suspicious fo r malignancy. Additional more peripheral right lower lobe consolidation and ground-glass attenuation , likely postobstructive atelectatic change or superimposed pneumonia. 2. Significant coronary atherosclerosis. TECHNICAL DOCUMENTATION: JOB ID: [id number] Quality ID # [id number]: Final reports with documentation of one or more dose reduction techniques (e.g., Au tomated exposure control, adjustment of the mA and/or kV according to patient size, use of iterative reconstruction technique) 2010 [employer]- All Rights Reserved Reading location - IP/workstation name: [email or web address]
== END ==
LOC: RAD 08:51
PROVIDERS: ATTEND Internal Medicine
DX: I12.9 Hypertensive chronic kidney disease with stage 1 through stage 4 chronic kidney disease, or unspecified chronic kidney disease (principal); N18.3 Chronic kidney disease, stage 3 (moderate); I25.10 Atherosclerotic heart disease of native coronary artery without angina pectoris; R06.02 Shortness of breath; R63.4 Abnormal weight loss; I70.0 Atherosclerosis of aorta
CPT/HCPCS: 71260; 74177; 82565

== ENCOUNTER 2019-07-13 09:42 | Inpatient (IN) | payer MEDICARE ==
[2019-07-13 11:11] LABS: ABSOLUTE BASOPHILS # (AUTO) 0.1 10^3/uL (0.0-0.2); ABSOLUTE EOSINOPHILS # (AUTO) 0.3 10^3/uL (0.0-0.6); ABSOLUTE LYMPHOCYTES (AUTO) 1.6 10^3/uL (0.5-4.7); ABSOLUTE MONOCYTES (AUTO) 1.2 10^3/uL (0.1-1.4); ABSOLUTE NEUT (AUTO) 10.5 10^3/uL (1.7-8.2); BASOPHILS % (AUTO) 0.5 % (0-2); EOSINOPHILS % (AUTO) 2.1 % (0-6); HEMATOCRIT 33.3 % (36.0-47.0); HEMOGLOBIN 11.9 g/dL (12.0-15.5); LYMPHOCYTES % (AUTO) 11.8 % (13-45); MEAN CORPUSCULAR HEMOGLOBIN 26.5 pg (27.0-33.4); MEAN CORPUSCULAR HGB CONC 35.6 g/dL (32.0-36.0); MEAN CORPUSCULAR VOLUME 74 fl (80-97); MONOCYTES % (AUTO) 8.5 % (3-13); PLATELET COUNT 365 10^3/uL (150-450); RED BLOOD COUNT 4.48 10^6/uL (3.72-5.28); RED CELL DISTRIBUTION WIDTH 19.6 % (11.5-14.0); SEGMENTED NEUTROPHILS % (AUTO) 77.1 % (42-78); TOTAL CELLS COUNTED % (AUTO) 100 %; WHITE BLOOD COUNT 13.6 10^3/uL (4.0-10.5)
[2019-07-13] MEDS ORDERED: LEVOFLOXACIN 750 MG/D5W RTU 750 MG/150 ML RTUPB IV ONE (11:30)
[2019-07-13 11:32] LABS: ALBUMIN 3.9 g/dL (3.5-5.0); ALKALINE PHOSPHATASE 70 U/L (38-126); ANION GAP 12 (5-19); ASPARTATE AMINO TRANSFERASE 26 U/L (14-36); BILIRUBIN,DIRECT 0.2 mg/dL (0.0-0.4); BILIRUBIN,TOTAL 0.6 mg/dL (0.2-1.3); BLOOD UREA NITROGEN 19 mg/dL (7-20); CALCIUM 9.7 mg/dL (8.4-10.2); CARBON DIOXIDE 21 mmol/L (22-30); CHLORIDE 102 mmol/L (98-107); GLUCOSE 90 mg/dL (75-110); POTASSIUM 4.4 mmol/L (3.6-5.0); TOTAL PROTEIN 7.9 g/dL (6.3-8.2)
[2019-07-13 11:34] LABS: ANISOCYTOSIS 2+; POIKILOCYTOSIS 1+; POLYCHROMASIA SLIGHT; TARGET CELLS 1+; TOXIC VACUOLATION PRESENT
[2019-07-13 11:35] LABS: PLATELET COMMENT ADEQUATE
[2019-07-13] MEDS: NORMAL SALINE 1000 ML 1,000 ML IV PRN (12:52)
[2019-07-13] MEDS ORDERED: CEFEPIME HCL 2 GM in DEXTROSE 5%-WATER 50 ML IV ONE (13:00)
--- NOTE | 2019-07-13 19:20 | PDOC H&P ---
History of Present Illness Admission Date/PCP: 07/13/19 09:42 YOLANDA VAZQUEZ MD History of Present Illness: ITA WITT is a 74 year old female, Patient is well-known to me she was admitted for the management of post obstructive pneumonia, right lower lobe mass, shortness of breath. Patient came to the office on 07/11/2019 for follow- up evaluation, she complained of shortness of breath, Inoticed she has lost a lot of weight, she also admitted to the fact that she has lost a lot of weight, I was very concerned especially in this patient with tobacco use, she has a history of type 2 diabetes mellitus presently not on any medication, the hemoglobin A1c is persistently below 5. I suspected neoplasm because of the risk of smoking I requested for CAT scan of the chest, abdomen and pelvis with contrast. The CT chest revealed a solid mass involving the right lower lobe and the area, it measured approximately 6.2 x 3.5 cm also found is an area of cavitation within the inferior aspect. There is associated narrowing of the atelectasis. Also found was patchy areas of ground glass attenuation and consolidation within the right lower lobe likely postobstructive pneumonia. Small additional areas of groundglass attenuation within the right middle lobe on the right lower lobe.The CAT scan of the abdomen and pelvis with contrast showed atrophic right kidney no focal mass there is compensatory hypertrophy of the left kidney no solid mass also found was multifocal bilateral iliac disease with moderate to severe areas of narrowing. Past Medical History Cardiac Medical History: Reports: Myocardial Infarction - 2000, Hyperlipidema, Hypertension Pulmonary Medical History: Reports: Pneumonia - As a child Endocrine Medical History: Reports: Diabetes Mellitus Type 2 Musculoskeltal Medical History: Reports: Arthritis - Everywhere Hematology: Reports: Anemia Past Surgical History Past Surgical History: Reports: Appendectomy, Cardiac Catheterization - w/stent, Cholecystectomy Social History Smoking Status: Current Every Day Smoker Frequency of Alcohol Use: None Hx Recreational Drug Use: No Drugs: None Hx Prescription Drug Abuse: No Family History Family History: Reviewed & Not Pertinent Parental Family History Reviewed: Yes Children Family History Reviewed: Yes Sibling(s) Family History Reviewed.: Yes Medication/Allergy Home Medications: RX: Clopidogrel Bisulfate [Clopidogrel] 75 mg PO QAM 05/11/16 RX: Fenofibrate Nanocrystallized [Tricor 145 mg Tablet] 145 mg PO QAM 05/11/16 RX: Losartan Potassium [Cozaar 50 mg Tablet] 50 mg PO QAM 05/11/16 Amlodipine/Valsartan/Hcthiazid [Exforge Hct 10-320-25 mg Tab] 1 tab PO DAILY 07/13/19 Megestrol Acetate [Megace Marge 400 mg/10 ml Udcup] 600 mg PO QAM 07/13/19 Metoprolol Tartrate [Lopressor 100 mg Tablet] 100 mg PO BID 07/13/19 Pramipexole Di-HCl [Mirapex] 0.125 mg PO QPM 07/13/19 RX: Sertraline HCl 25 mg PO QAM 07/13/19 Allergies/Adverse Reactions: No Known Drug Allergies Allergy (Verified 07/21/16 14:53) sesonal allergy Allergy (Uncoded 07/20/16 12:46) Review of Systems Constitutional: ABSENT: chills, fever(s), headache(s), weight gain, weight loss Eyes: ABSENT: visual disturbances Ears: ABSENT: hearing changes Cardiovascular: ABSENT: chest pain, dyspnea on exertion, edema, orthropnea, palpitations Respiratory: PRESENT: dyspnea. ABSENT: hemoptysis Gastrointestinal: ABSENT: abdominal pain, constipation, diarrhea, hematemesis, hematochezia, nausea, vomiting Genitourinary: ABSENT: dysuria, hematuria Musculoskeletal: ABSENT: joint swelling Integumentary: ABSENT: rash, wounds Neurological: ABSENT: abnormal gait, abnormal speech, confusion, dizziness, focal weakness, syncope Psychiatric: ABSENT: anxiety, depression, homidical ideation, suicidal ideation Endocrine: ABSENT: cold intolerance, heat intolerance, menstrual abnormalities, polydipsia, polyuria Hematologic/Lymphatic: ABSENT: easy bleeding, easy bruising, lymphadenopathy Physical Exam Vital Signs: Temp Pulse Resp BP Pulse Ox 98.4 F 88 18 197/108 H 97 07/13/19 15:59 07/13/19 15:59 07/13/19 15:59 07/13/19 15:59 07/13/19 15:59 Intake & Output 07/12/19 07/13/19 07/14/19 06:59 06:59 06:59 Intake Total 727 Balance 727 Weight 60.781 kg General appearance: PRESENT: no acute distress Head exam: PRESENT: atraumatic, normocephalic Eye exam: PRESENT: conjunctiva pink, EOMI, PERRLA Ear exam: PRESENT: normal external ear exam Mouth exam: PRESENT: moist, tongue midline Neck exam: PRESENT: full ROM Respiratory exam: PRESENT: rhonchi Cardiovascular exam: PRESENT: RRR, +S1, +S2 Pulses: PRESENT: normal dorsalis pedis pul, +2 pedal pulses bilateral Vascular exam: PRESENT: normal capillary refill GI/Abdominal exam: PRESENT: normal bowel sounds, soft Rectal exam: PRESENT: deferred Neurological exam: PRESENT: alert, CN II-XII grossly intact Psychiatric exam: PRESENT: appropriate affect, normal mood Skin exam: PRESENT: dry, intact, warm Results Laboratory Results: 07/13/19 10:47 07/13/19 10:47 07/13/19 07/13/19 10:47 10:47 WBC 13.6 H RBC 4.48 Hgb 11.9 L Hct 33.3 L MCV 74 L MCH 26.5 L MCHC 35.6 RDW 19.6 H Plt Count 365 Seg Neutrophils % 77.1 Sodium 135.2 L Potassium 4.4 Chloride 102 Carbon Dioxide 21 L Anion Gap 12 BUN 19 Creatinine 1.36 H Est GFR ( Amer) 46 L Glucose 90 Calcium 9.7 Total Bilirubin 0.6 AST 26 Alkaline Phosphatase 70 Total Protein 7.9 Albumin 3.9 Assessment & Plan - Diagnosis (1) Pneumonia Qualifiers: Pneumonia type: due to unspecified organism Laterality: right Lung location: lower lobe of lung Qualified Code(s): J18.9 - Pneumonia, unspecified organism Is this a current diagnosis for this admission?: Yes Plan: Patient is admitted for the management of postobstructive pneumonia in the [facility] ng of neoplasm in the right lower lobe, she will be treated with IV antibiotic, Levaquin and cefepime (2) 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 Patient is on Plavix, she has to stop by for 5 days so hopefully she will get the CT-guided needle biopsy on Wednesday (3) Aorto-iliac atherosclerosis Is this a current diagnosis for this admission?: Yes Plan: She will need Xarelto 2.5 mg p.o. twice daily with baby aspirin after biopsy is done (4) Chronic kidney disease (CKD), stage III (moderate) Is this a current diagnosis for this admission?: Yes
[2019-07-13] MEDS ORDERED: (PENDING PHARMACY ID) (Pramipexole Di-Hcl [Mirapex] 0.125 MG) PO SCH (19:30)
[2019-07-13] MEDS ORDERED: (PENDING PHARMACY ID) (Sertraline Hcl [Sertraline Hcl] 25 MG) PO SCH (19:30)
[2019-07-13] MEDS: PRAMIPEXOLE DI-HCL 0.25 MG TABLET PO SCH (19:55)
[2019-07-13] MEDS: METOPROLOL TARTRATE 100 MG TABLET PO SCH (19:55)
[2019-07-13] MEDS: SERTRALINE HCL 50 MG TABLET PO SCH (19:55)
[2019-07-13] MEDS ORDERED: VALSARTAN 160 MG TABLET PO SCH (20:00)
[2019-07-13] MEDS ORDERED: HYDROCHLOROTHIAZIDE 25 MG TABLET PO ONE (20:45)
[2019-07-13] MEDS ORDERED: VALSARTAN 160 MG TABLET PO ONE (21:00)
[2019-07-13] MEDS ORDERED: AMLODIPINE BESYLATE 10 MG TABLET PO ONE (21:00)
[2019-07-13 21:09] LABS: INTERNATIONAL RATION (INR) 1.32; PROTHROMBIN TIME 16.5 SEC (11.4-15.4)
[2019-07-13 21:10] LABS: PARTIAL THROMBOPLASTIN TIME 46.9 SEC (23.5-35.8)
[2019-07-13 21:36] LABS: APPEARANCE,URINE CLEAR; BILIRUBIN,URINE NEGATIVE (NEGATIVE); COLOR,URINE STRAW; GLUCOSE, URINE NEGATIVE (NEGATIVE); KETONES,URINE NEGATIVE (NEGATIVE); LEUKOCYTE ESTERASE,URINE NEGATIVE (NEGATIVE); NITRITE,URINE NEGATIVE (NEGATIVE); PROTEIN,URINE 100 mg/dL (NEGATIVE); URINE SPECIFIC GRAVITY 1.006; UROBILINOGEN,URINE NEGATIVE mg/dL (<2.0)
[2019-07-13] MEDS: LORAZEPAM 1 MG TABLET PO SCH (22:14)
[2019-07-13] MEDS: CEFEPIME HCL 2 GM in DEXTROSE 5%-WATER 50 ML IV SCH (22:15)
--- NOTE | 2019-07-13 23:55 | EKG REPORT ---
SEVERITY:- BORDERLINE ECG - SINUS RHYTHM PROBABLE LEFT ATRIAL ABNORMALITY BORDERLINE T ABNORMALITIES, INFERIOR LEADS CAN NOT R/O INFERIOR PR : Confirmed by: Shena Jorgensen 13-Jul-2019 23:54:56
[2019-07-14] MEDS: METOPROLOL TARTRATE 100 MG TABLET PO SCH ×2 (05:38→18:54)
[2019-07-14] MEDS: NORMAL SALINE 1000 ML 1,000 ML IV PRN (05:39)
[2019-07-14] MEDS ORDERED: CLOPIDOGREL BISULFATE 75 MG TABLET PO SCH (08:00)
[2019-07-14] MEDS: MEGESTROL ACETATE SUSP 400 MG/10 ML UDCUP PO SCH (08:38)
[2019-07-14] MEDS: SERTRALINE HCL 50 MG TABLET PO SCH (08:38)
[2019-07-14] MEDS: FENOFIBRATE NANOCRYSTALLIZED 145 MG TABLET PO SCH (08:38)
[2019-07-14] MEDS ORDERED: PHYTONADIONE INJ 10 MG/1 ML AMPULE SUBCUT ONE (09:00)
[2019-07-14] MEDS ORDERED: AMLODIPINE BESYLATE 10 MG TABLET PO SCH (10:00)
[2019-07-14] MEDS: VALSARTAN 160 MG TABLET PO SCH (10:27)
[2019-07-14] MEDS: HYDROCHLOROTHIAZIDE 25 MG TABLET PO SCH (10:27)
[2019-07-14] MEDS: AMLODIPINE BESYLATE 10 MG TABLET PO SCH (10:27)
[2019-07-14] MEDS: CEFEPIME HCL 2 GM in DEXTROSE 5%-WATER 50 ML IV SCH ×2 (10:28→22:10)
[2019-07-14] MEDS: PRAMIPEXOLE DI-HCL 0.25 MG TABLET PO SCH (18:53)
--- NOTE | 2019-07-14 19:42 | PDOC PROGRESS REPORT ---
Subjective Progress Note for:: 07/14/19 Subjective:: Patient seen by the bedside, she was admitted yesterday for the management of postobstructive pneumonia, right lower lobe mass suspicious for malignant neoplasm. The PT/PTT was elevated she was given a dose of vitamin K, the tentative plan is for biopsy on Wednesday. I explained to her that I am off this Dr. Alvarez is service control operator, I be back on Wednesday Reason For Visit: LARGE MASS IN RIGHT LOWER LOBE Physical Exam Vital Signs: Temp Pulse Resp BP Pulse Ox 98.4 F 73 18 149/85 H 96 07/14/19 15:50 07/14/19 15:50 07/14/19 15:50 07/14/19 15:50 07/14/19 15:50 Intake & Output 07/13/19 07/14/19 07/15/19 06:59 06:59 06:59 Intake Total 1977 980 Output Total 1050 900 Balance 927 80 Weight 76.8 kg 76.8 kg General appearance: PRESENT: no acute distress Eye exam: PRESENT: PERRLA Respiratory exam: PRESENT: rhonchi Cardiovascular exam: PRESENT: +S1, +S2 GI/Abdominal exam: PRESENT: soft Neurological exam: PRESENT: alert Results Laboratory Results: 07/13/19 10:47 07/13/19 10:47 07/13/19 21:05 Urine Color STRAW Urine Appearance CLEAR Urine pH 6.0 Ur Specific [place] 1.006 Urine Protein 100 H Urine Glucose (UA) NEGATIVE Urine Ketones NEGATIVE Urine Blood SMALL H Urine Nitrite NEGATIVE Ur Leukocyte Esterase NEGATIVE Urine WBC (Auto) 1 Urine RBC (Auto) 3 Assessment & Plan - Diagnosis (1) Pneumonia Qualifiers: Pneumonia type: due to unspecified organism Laterality: right Lung location: lower lobe of lung Qualified Code(s): J18.9 - Pneumonia, unspecified organism Is this a current diagnosis for this admission?: Yes Plan: Continue IV antibiotic for the postobstructive pneumonia (2) 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 twice daily with baby aspirin after the lung biopsy (4) Chronic kidney disease (CKD), stage III (moderate) Is this a current diagnosis for this admission?: Yes - Time Time Spent with patient: 35 or more minutes Level of Care: IMCU
[2019-07-14 20:45] LABS: ABSOLUTE EOSINOPHILS # (AUTO) 0.1 10^3/uL (0.0-0.6); ABSOLUTE LYMPHOCYTES (AUTO) 1.3 10^3/uL (0.5-4.7); ABSOLUTE MONOCYTES (AUTO) 0.9 10^3/uL (0.1-1.4); ABSOLUTE NEUT (AUTO) 9.1 10^3/uL (1.7-8.2); BASOPHILS % (AUTO) 0.4 % (0-2); EOSINOPHILS % (AUTO) 1.3 % (0-6); HEMOGLOBIN 11.1 g/dL (12.0-15.5); LYMPHOCYTES % (AUTO) 11.4 % (13-45); MEAN CORPUSCULAR HEMOGLOBIN 26.3 pg (27.0-33.4); MEAN CORPUSCULAR HGB CONC 35.8 g/dL (32.0-36.0); MEAN CORPUSCULAR VOLUME 74 fl (80-97); MONOCYTES % (AUTO) 7.8 % (3-13); PLATELET COUNT 339 10^3/uL (150-450); RED BLOOD COUNT 4.22 10^6/uL (3.72-5.28); SEGMENTED NEUTROPHILS % (AUTO) 79.1 % (42-78); TOTAL CELLS COUNTED % (AUTO) 100 %; WHITE BLOOD COUNT 11.4 10^3/uL (4.0-10.5)
[2019-07-14 20:49] LABS: ALBUMIN 3.1 g/dL (3.5-5.0); ALKALINE PHOSPHATASE 59 U/L (38-126); ANION GAP 11 (5-19); ASPARTATE AMINO TRANSFERASE 21 U/L (14-36); BILIRUBIN,DIRECT 0.1 mg/dL (0.0-0.4); BILIRUBIN,TOTAL 0.6 mg/dL (0.2-1.3); BLOOD UREA NITROGEN 22 mg/dL (7-20); CALCIUM 9.7 mg/dL (8.4-10.2); CARBON DIOXIDE 21 mmol/L (22-30); CHLORIDE 98 mmol/L (98-107); GLUCOSE 115 mg/dL (75-110); POTASSIUM 4.1 mmol/L (3.6-5.0); TOTAL PROTEIN 6.3 g/dL (6.3-8.2)
[2019-07-14 21:13] LABS: ANISOCYTOSIS 2+; OVALOCYTES SLIGHT; PLATELET COMMENT ADEQUATE; POIKILOCYTOSIS 1+; TARGET CELLS 1+; TEAR DROP CELLS SLIGHT; TOXIC VACUOLATION PRESENT
[2019-07-14] MEDS: ATORVASTATIN CALCIUM 80 MG TABLET PO SCH (22:10)
[2019-07-14] MEDS: LORAZEPAM 1 MG TABLET PO SCH (22:10)
[2019-07-15] MEDS: METOPROLOL TARTRATE 100 MG TABLET PO SCH ×2 (06:36→17:30)
[2019-07-15] MEDS: MEGESTROL ACETATE SUSP 400 MG/10 ML UDCUP PO SCH (09:21)
[2019-07-15] MEDS: VALSARTAN 160 MG TABLET PO SCH (09:22)
[2019-07-15] MEDS: AMLODIPINE BESYLATE 10 MG TABLET PO SCH (09:22)
[2019-07-15] MEDS: SERTRALINE HCL 50 MG TABLET PO SCH (09:22)
[2019-07-15] MEDS: FENOFIBRATE NANOCRYSTALLIZED 145 MG TABLET PO SCH (09:22)
[2019-07-15] MEDS: HYDROCHLOROTHIAZIDE 25 MG TABLET PO SCH (09:22)
[2019-07-15] MEDS: LEVOFLOXACIN 750 MG/D5W RTU 750 MG/150 ML RTUPB IV SCH (09:23)
[2019-07-15] MEDS: CEFEPIME HCL 2 GM in DEXTROSE 5%-WATER 50 ML IV SCH ×2 (11:21→21:42)
--- NOTE | 2019-07-15 15:45 | PDOC PROGRESS REPORT ---
Subjective Progress Note for:: 07/15/19 Subjective:: She denied any chest pain or difficulty with breathing. No nausea or vomiting. No fever or chills. Reason For Visit: LARGE MASS IN RIGHT LOWER LOBE Physical Exam Vital Signs: Temp Pulse Resp BP Pulse Ox 97.7 F 71 21 H 157/87 H 96 07/15/19 12:04 07/15/19 14:00 07/15/19 12:04 07/15/19 12:04 07/15/19 12:04 Intake & Output 07/14/19 07/15/19 07/16/19 06:59 06:59 06:59 Intake Total 1977 2290 620 Output Total 1050 1400 300 Balance 927 890 320 Weight 76.8 kg 75.1 kg General appearance: PRESENT: no acute distress, well-developed, well-nourished Eye exam: PRESENT: conjunctiva pink. ABSENT: scleral icterus Ear exam: PRESENT: normal external ear exam Mouth exam: PRESENT: moist Respiratory exam: PRESENT: crackles - scattered, decreased breath sounds - at lung bases Cardiovascular exam: PRESENT: RRR, +S1, +S2. ABSENT: diastolic murmur, rubs, systolic murmur Vascular exam: ABSENT: pallor GI/Abdominal exam: PRESENT: normal bowel sounds, soft. ABSENT: distended, guarding, mass, organolmegaly, rebound, tenderness Extremities exam: ABSENT: pedal edema Neurological exam: PRESENT: alert, awake, oriented to person, oriented to place, oriented to time, oriented to situation, CN II-XII grossly intact. ABSENT: motor sensory deficit Psychiatric exam: PRESENT: appropriate affect, normal mood. ABSENT: homicidal ideation, suicidal ideation Skin exam: PRESENT: dry, warm Results Laboratory Results: 07/14/19 20:22 07/14/19 20:22 07/14/19 07/14/19 20:22 20:22 WBC 11.4 H RBC 4.22 Hgb 11.1 L Hct 31.0 L MCV 74 L MCH 26.3 L MCHC 35.8 RDW 20.0 H Plt Count 339 Seg Neutrophils % 79.1 H Sodium 130.0 L Potassium 4.1 Chloride 98 Carbon Dioxide 21 L Anion Gap 11 BUN 22 H Creatinine 1.24 Est GFR ( Amer) 51 L Glucose 115 H Calcium 9.7 Total Bilirubin 0.6 AST 21 Alkaline Phosphatase 59 Total Protein 6.3 Albumin 3.1 L 07/13/19 21:05 Clean Catch Midstream Urine Culture - Final NO GROWTH 2 DAYS Assessment & Plan - Diagnosis (1) Pneumonia Qualifiers: Pneumonia type: due to unspecified organism Laterality: right Lung location: lower lobe of lung Qualified Code(s): J18.9 - Pneumonia, unspecified organism Is this a current diagnosis for this admission?: Yes Plan: Continue IV Cefepime and Levofloxacin coverage. (2) Chronic kidney disease (CKD), stage III (moderate) Is this a current diagnosis for this admission?: Yes Plan: Continue current medication management. 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 - Time Time Spent with patient: 25-34 minutes Level of Care: IMCU Medications reviewed and adjusted accordingly: Yes Anticipated discharge: Home with Homehealth Within: Other - Inpatient Certification Based on my medical assessment, after consideration of the patient's comorbidities, presenting symptoms, or acuity I expect that the services needed warrant INPATIENT care.: Yes I certify that my determination is in accordance with my understanding of Medicare's requirements for reasonable and necessary INPATIENT services [42 CFR 412.3e].: Yes Medical Necessity: Significant Comorbidiites Make Outpatient Treatment Too Risky, Need Close Monitoring Due to Risk of Patient Decompensation, Need For IV Fluids, Need For Continuous Telemetry Monitoring, Need for IV Antibiotics, Risk of Complication if Not Cared For in Hospital, Risk of Diagnosis Which Will Require Inpatient Eval/Care/Monitoring - Plan Summary Plan Summary: Continue current medication management.
[2019-07-15] MEDS: PRAMIPEXOLE DI-HCL 0.25 MG TABLET PO SCH (17:30)
[2019-07-15] MEDS: NORMAL SALINE 1000 ML 1,000 ML IV PRN (17:31)
[2019-07-15] MEDS: LORAZEPAM 1 MG TABLET PO SCH (21:42)
[2019-07-15] MEDS: ATORVASTATIN CALCIUM 80 MG TABLET PO SCH (21:42)
[2019-07-16] MEDS: METOPROLOL TARTRATE 100 MG TABLET PO SCH ×2 (05:56→17:58)
[2019-07-16] MEDS: SERTRALINE HCL 50 MG TABLET PO SCH (09:07)
[2019-07-16] MEDS: FENOFIBRATE NANOCRYSTALLIZED 145 MG TABLET PO SCH (09:08)
[2019-07-16] MEDS: AMLODIPINE BESYLATE 10 MG TABLET PO SCH (09:08)
[2019-07-16] MEDS: VALSARTAN 160 MG TABLET PO SCH (09:08)
[2019-07-16] MEDS: MEGESTROL ACETATE SUSP 400 MG/10 ML UDCUP PO SCH (09:08)
[2019-07-16] MEDS: HYDROCHLOROTHIAZIDE 25 MG TABLET PO SCH (09:08)
[2019-07-16] MEDS: CEFEPIME HCL 2 GM in DEXTROSE 5%-WATER 50 ML IV SCH ×2 (09:09→22:20)
--- NOTE | 2019-07-16 15:55 | PDOC PROGRESS REPORT ---
Subjective Progress Note for:: 07/16/19 Subjective:: She complaining about feeling weak. She reported adequate PO intake. She denied diarrhea, tarry or bloody stool. She denied any chest pain or difficulty with breathing. No nausea or vomiting. No fever or chills. Reason For Visit: LARGE MASS IN RIGHT LOWER LOBE Physical Exam Vital Signs: Temp Pulse Resp BP Pulse Ox 97.8 F 78 16 144/96 H 97 07/16/19 12:09 07/16/19 12:09 07/16/19 12:09 07/16/19 12:09 07/16/19 12:09 Intake & Output 07/15/19 07/16/19 07/17/19 06:59 06:59 06:59 Intake Total 2290 790 1170 Output Total 1400 1350 100 Balance 890 -560 1070 Weight 75.1 kg 75.2 kg Physical Exam: General appearance: PRESENT: no acute distress, well-developed, well-nourished Eye exam: PRESENT: conjunctiva pink. ABSENT: pallor, scleral icterus Ear exam: PRESENT: normal external ear exam Mouth exam: PRESENT: moist Respiratory exam: PRESENT: crackles - scattered, decreased breath sounds - at lung bases Cardiovascular exam: PRESENT: RRR, +S1, +S2. ABSENT: diastolic murmur, rubs, systolic murmur GI/Abdominal exam: PRESENT: normal bowel sounds, soft. ABSENT: distended, guarding, mass, organomegaly, rebound, tenderness Extremities exam: ABSENT: pedal edema Neurological exam: PRESENT: alert, awake, oriented to person, oriented to place, oriented to time, oriented to situation, CN II-XII grossly intact. ABSENT: motor sensory deficit Psychiatric exam: PRESENT: appropriate affect, normal mood. 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 Is this a current diagnosis for this admission?: Yes - Time Time Spent with patient: 25-34 minutes Level of Care: IMCU Medications reviewed and adjusted accordingly: Yes Anticipated discharge: Home, Home with Homehealth Within: Other - Inpatient Certification Based on my medical assessment, after consideration of the patient's comorbidities, presenting symptoms, or acuity I expect that the services needed warrant INPATIENT care.: Yes I certify that my determination is in accordance with my understanding of Medicare's requirements for reasonable and necessary INPATIENT services [42 CFR 412.3e].: Yes Medical Necessity: Significant Comorbidiites Make Outpatient Treatment Too Risky, Need Close Monitoring Due to Risk of Patient Decompensation, Need For IV Fluids, Need For Continuous Telemetry Monitoring, Need for IV Antibiotics, Risk of Complication if Not Cared For in Hospital, Risk of Diagnosis Which Will Require Inpatient Eval/Care/Monitoring Post Hospital Care: D/C Public Service Representative Documentation - Plan Summary Plan Summary: Continue current medication management.Obtain CBC with diff, CMP.
[2019-07-16 16:58] LABS: ABSOLUTE BASOPHILS # (AUTO) 0.1 10^3/uL (0.0-0.2); ABSOLUTE EOSINOPHILS # (AUTO) 0.1 10^3/uL (0.0-0.6); ABSOLUTE LYMPHOCYTES (AUTO) 1.1 10^3/uL (0.5-4.7); ABSOLUTE MONOCYTES (AUTO) 1.1 10^3/uL (0.1-1.4); BASOPHILS % (AUTO) 0.6 % (0-2); EOSINOPHILS % (AUTO) 0.7 % (0-6); HEMATOCRIT 32.8 % (36.0-47.0); HEMOGLOBIN 11.8 g/dL (12.0-15.5); LYMPHOCYTES % (AUTO) 7.9 % (13-45); MEAN CORPUSCULAR HEMOGLOBIN 26.5 pg (27.0-33.4); MEAN CORPUSCULAR HGB CONC 36.1 g/dL (32.0-36.0); MEAN CORPUSCULAR VOLUME 74 fl (80-97); MONOCYTES % (AUTO) 7.7 % (3-13); PLATELET COUNT 316 10^3/uL (150-450); RED BLOOD COUNT 4.46 10^6/uL (3.72-5.28); RED CELL DISTRIBUTION WIDTH 19.4 % (11.5-14.0); SEGMENTED NEUTROPHILS % (AUTO) 83.1 % (42-78); TOTAL CELLS COUNTED % (AUTO) 100 %; WHITE BLOOD COUNT 14.5 10^3/uL (4.0-10.5)
[2019-07-16 17:23] LABS: ALBUMIN 3.5 g/dL (3.5-5.0); ALKALINE PHOSPHATASE 67 U/L (38-126); ANION GAP 10 (5-19); ASPARTATE AMINO TRANSFERASE 28 U/L (14-36); BILIRUBIN,DIRECT 0.3 mg/dL (0.0-0.4); BILIRUBIN,TOTAL 0.9 mg/dL (0.2-1.3); BLOOD UREA NITROGEN 18 mg/dL (7-20); CALCIUM 10.1 mg/dL (8.4-10.2); CARBON DIOXIDE 22 mmol/L (22-30); CHLORIDE 98 mmol/L (98-107); GLUCOSE 99 mg/dL (75-110); POTASSIUM 4.2 mmol/L (3.6-5.0); TOTAL PROTEIN 7.3 g/dL (6.3-8.2)
[2019-07-16] MEDS: PRAMIPEXOLE DI-HCL 0.25 MG TABLET PO SCH (17:58)
[2019-07-16] MEDS: NORMAL SALINE 1000 ML 1,000 ML IV PRN (17:59)
[2019-07-16] MEDS: ATORVASTATIN CALCIUM 80 MG TABLET PO SCH (22:19)
[2019-07-16] MEDS: LORAZEPAM 1 MG TABLET PO SCH (22:24)
[2019-07-17] MEDS: METOPROLOL TARTRATE 100 MG TABLET PO SCH ×2 (06:37→17:33)
[2019-07-17 08:55] LABS: INTERNATIONAL RATION (INR) 1.26; PROTHROMBIN TIME 15.9 SEC (11.4-15.4)
[2019-07-17 08:56] LABS: PARTIAL THROMBOPLASTIN TIME 44.2 SEC (23.5-35.8)
[2019-07-17] MEDS: LEVOFLOXACIN 750 MG/D5W RTU 750 MG/150 ML RTUPB IV SCH (09:53)
[2019-07-17] MEDS: MEGESTROL ACETATE SUSP 400 MG/10 ML UDCUP PO SCH (09:54)
[2019-07-17] MEDS: SERTRALINE HCL 50 MG TABLET PO SCH (09:55)
[2019-07-17] MEDS: VALSARTAN 160 MG TABLET PO SCH (09:55)
[2019-07-17] MEDS: HYDROCHLOROTHIAZIDE 25 MG TABLET PO SCH (09:55)
[2019-07-17] MEDS: AMLODIPINE BESYLATE 10 MG TABLET PO SCH (09:55)
[2019-07-17] MEDS: FENOFIBRATE NANOCRYSTALLIZED 145 MG TABLET PO SCH (09:56)
[2019-07-17] MEDS: CEFEPIME HCL 2 GM in DEXTROSE 5%-WATER 50 ML IV SCH ×2 (09:57→21:08)
[2019-07-17] MEDS ORDERED: MIDAZOLAM 2 MG/2 ML INJ ONE (10:46)
[2019-07-17] MEDS ORDERED: FENTANYL CITRATE INJ/PF 100 MCG/2 ML AMPUL ONE (10:46)
--- NOTE | 2019-07-17 12:23 | RADIOLOGY REPORT (SQ) ---
EXAM DESCRIPTION: CHEST SINGLE VIEW IMAGES COMPLETED DATE/TIME: 07/17/2019 12:07 pm REASON FOR STUDY: POST LUNG BIOPSY COMPARISON: Intra-procedural CT from 07/17/[address] of the chest with contrast from 07/12/2019. EXAM PARAMETERS: NUMBER OF VIEWS: One view. TECHNIQUE: An AP view of the chest was obtained. RADIATION DOSE: NA LIMITATIONS: None. FINDINGS: LUNGS AND PLEURA: Status post CT-guided biopsy of a cavitary right lower lobe nodule. The re is no postprocedural pneumothorax. There is a parenchymal opacity in the left upper lobe. There i s no pleural effusion. MEDIASTINUM AND HILAR STRUCTURES: Stable mediastinal and hilar contours. HEART AND VASCULAR STRUCTURES: The cardiac silhouette is within normal limits. BONES: No acute findings. HARDWARE: None in the chest. OTHER: No other finding. IMPRESSION: 1. No postprocedural pneumothorax. 2. New parenchymal opacity in the left upper lobe - correlate with clinical findings to exclude a pn eumonia. TECHNICAL DOCUMENTATION: JOB ID: [id number] 2010 [employer]- All Rights Reserved Reading location - IP/workstation name: [email or web address]
--- NOTE | 2019-07-17 14:45 | RADIOLOGY REPORT (SQ) ---
EXAM DESCRIPTION: CHEST SINGLE VIEW IMAGES COMPLETED DATE/TIME: 07/17/2019 2:09 pm REASON FOR STUDY: POST LUNG BIOPSY *2 HOUR FILM* COMPARISON: AP view of the chest from 07/17/2019 at 1208 hours. EXAM PARAMETERS: NUMBER OF VIEWS: One view. TECHNIQUE: An AP view of the chest was obtained. RADIATION DOSE: NA LIMITATIONS: None. FINDINGS: LUNGS AND PLEURA: There is no postprocedural pneumothorax. Otherwise unchanged radiograph ic appearance of the lungs and pleura. MEDIASTINUM AND HILAR STRUCTURES: Stable mediastinal and hilar contours. HEART AND VASCULAR STRUCTURES: Stable cardiac silhouette. BONES: No acute findings. HARDWARE: None in the chest. OTHER: No other finding. IMPRESSION: No postprocedural pneumothorax. TECHNICAL DOCUMENTATION: JOB ID: [id number] 2010 [employer]- All Rights Reserved Reading location - IP/workstation name: [email or web address]
--- NOTE | 2019-07-17 16:22 | RADIOLOGY REPORT (SQ) ---
EXAM DESCRIPTION: CT BIOPSY LUNG/MEDIASTINUM IMAGES COMPLETED DATE/TIME: 07/17/2019 11:55 am REASON FOR STUDY: lg mass in right lower lobe COMPARISON: CT of the chest with contrast from 07/12/2019. FLUORO TIME: 7.5 seconds. 74 images submitted to PACS. LIMITATIONS: None. PROCEDURE: The procedure, risks, benefits, and alternatives were discussed with the patient in the p reprocedural area, and all questions were answered. Informed consent was obtained verbally and in wri ting. The patient was then brought to the CT suite, positioned prone on the CT gurney, and a time-out was p erformed. After that, axial images of the chest were obtained for targeting of the cavitary mass in the right lower lobe. Based on review of the axial images an appropriate access site was selected on the skin. The area around selected access site was then prepped and draped with 2% chlorhexidine utilizing jordan dard sterile technique. After that, the access site was infiltrated with 1% lidocaine and an incisio n was made in the skin with a #11 blade. A 19 gauge coaxial needle was then advanced through the skin incision and into the solid component of the mass utilizing CT fluoroscopic guidance. After that, th e inner stylet of the coaxial needle was removed and 3 20 gauge core samples were obtained - the samp les were collected and submitted to cytopathology in formalin. The coaxial needle was then removed and axial images of the chest were repeated and reviewed ; the im ages demonstrated no acute biopsy-related complication. The patient tolerated the procedure well without immediate complication. At the end of the procedure the patient's condition was unchanged from the preprocedural baseline. IV conscious sedation was administered at the direction of the performing physician by a registered porsche sheriffe. 0 milligrams of Versed and 50 micrograms of fentanyl. Physiologic monitoring was provided befor e, during, and after sedation. Documentation of xugx-so-fgec time the performing proceduralist spent monitoring the patient: 10 min utes. IMPRESSION: Successful CT-guided biopsy of the cavitary mass in the right lower lobe as detailed abo senthil. COMMENT: Patient medication list reviewed: Yes- Quality ID# 130:Eligible professional attests to doc umenting in the medical record they obtained, updated, or reviewed the patient's current medications. Quality ID #76: The patient was prepped and draped using maximum sterile barrier technique including cap, mask, sterile gown, sterile gloves, a large sterile sheet, hand hygiene, and 2% Chlorhexidine fo r cutaneous antisepsis. When ultrasound is used, sterile ultrasound techniques are followed requiring sterile gel and sterile probes. Quality ID 145: Final reports for procedures using fluoroscopy that document radiation exposure radha jeffrey, or exposure time and number of fluorographic images (if radiation exposure indices are not avail able) Quality ID# 436: Final reports with documentation of one or more dose reduction techniques (e.g., Aut omated exposure control, adjustment of the mA and/or kV according to patient size, use of iterative r econstruction technique) TECHNICAL DOCUMENTATION: JOB ID: [id number] 2010 [employer]- All Rights Reserved rev Reading location - IP/workstation name: [email or web address]
--- NOTE | 2019-07-17 17:11 | RADIOLOGY REPORT (SQ) ---
EXAM DESCRIPTION: MRI HEAD COMBO IMAGES COMPLETED DATE/TIME: 07/17/2019 2:39 pm REASON FOR STUDY: ams. Recent diagnosis of lung cancer. Weakness and altered mental status. Prior nephrectomy. Stents. Kidney failure. COMPARISON: MRI brain, 04/06/2014. CT-guided lung biopsy, same date. CT abdomen and pelvis, 07/12/[address] head, 03/14/2014. TECHNIQUE: Multiplanar imaging includes noncontrasted T1, T2, FLAIR, diffusion with ADC map and post gadolinium contrast T1 sequences. Images stored on PACS. CONTRAST TYPE AND DOSE: 10 mL ProHance RENAL FUNCTION: Not indicated. ACR Type II contrast agent associated with few, if any, unconfounded cases of NSF LIMITATIONS: None. FINDINGS: ANATOMY: No anomalies. Normal vascular flow voids. Pituitary fossa normal. CSF SPACES: Normal in size and contour. No hemorrhage. CEREBRUM: Sulci and gyri normal in size and contour. Moderate diffuse increased periventricular and deep white matter signal on FLAIR imaging. No evidence of hemorrhage, mass, or extraaxial fluid colle ction. No abnormal enhancement post contrast. POSTERIOR FOSSA: No signal alteration. No hemorrhage. No edema, masses, or mass effect. Internal andre tory canals, cerebellopontine angles, mastoids normal. No enhancing lesions. No abnormal enhancement post contrast. DIFFUSION IMAGING: Negative for acute or subacute infarct. There appears to be artifact in the mesia l left temporal lobe. ORBITS: No masses. Globes normal. PARANASAL SINUSES: No fluid levels. Mucosa normal. OTHER: No other significant finding. IMPRESSION: 1. No acute intracranial hemorrhage, mass, or evidence of acute territorial infarct/ischemia. 2. Moderate chronic small vessel ischemic change. EVIDENCE OF ACUTE STROKE: NO. TECHNICAL DOCUMENTATION: JOB ID: [id number] 2010 [employer]- All Rights Reserved Reading location - IP/workstation name: [email or web address]
[2019-07-17] MEDS: PRAMIPEXOLE DI-HCL 0.25 MG TABLET PO SCH (17:33)
--- NOTE | 2019-07-17 18:19 | PDOC PROGRESS REPORT ---
Subjective Progress Note for:: 07/17/19 Subjective:: Patient was seen today by the bedside, she was admitted for the management of postobstructive pneumonia, large lung mass. She had CT-guided needle biopsy of the lung mass today. She was very confused today, brain metastasis was suspected, MRI of the brain with contrast was obtained, there was no evidence of brain mets, no evidence of stroke. The plan is for patient to start Xarelto and aspirin for PAD, hopefully the pathology of the biopsy should be out tomorrow Wednesday, will get oncology involved at that time Reason For Visit: LARGE MASS IN RIGHT LOWER LOBE Physical Exam Vital Signs: Temp Pulse Resp BP Pulse Ox 97.5 F 81 21 H 159/85 H 94 07/17/19 03:27 07/17/19 14:00 07/17/19 03:27 07/17/19 03:27 07/17/19 03:27 Intake & Output 07/16/19 07/17/19 07/18/19 06:59 06:59 06:59 Intake Total 790 1220 Output Total 1350 100 Balance -560 1120 Weight 75.2 kg 76.2 kg General appearance: PRESENT: no acute distress Respiratory exam: PRESENT: rhonchi Cardiovascular exam: PRESENT: +S1, +S2 GI/Abdominal exam: PRESENT: soft Neurological exam: PRESENT: alert Results Laboratory Results: 07/16/19 16:15 07/16/19 16:15 Impressions: Chest X-Ray 07/17/19 00:00 IMPRESSION: No postprocedural pneumothorax. Head MRI 07/17/19 00:00 IMPRESSION: 1. No acute intracranial hemorrhage, mass, or evidence of acute territorial infarct/ischemia. 2. Moderate chronic small vessel ischemic change. EVIDENCE OF ACUTE STROKE: NO. Lung Biopsy CT 07/17/19 11:00 IMPRESSION: Successful CT-guided biopsy of the cavitary mass in the right lower lobe as detailed above. Assessment & Plan - Diagnosis (1) Pneumonia Qualifiers: Pneumonia type: due to unspecified organism Laterality: right Lung location: lower lobe of lung Qualified Code(s): J18.9 - Pneumonia, unspecified organism Is this a current diagnosis for this admission?: Yes Plan: Continue IV antibiotic for pneumonia (2) Neoplasm of uncertain behavior of right lower lobe of lung Is this a current diagnosis for this admission?: Yes Plan: She is status post CT-guided lung biopsy awaiting pathology report (3) Aorto-iliac atherosclerosis Is this a current diagnosis for this admission?: Yes Plan: Start Xarelto 2.5 mg p.o. twice daily baby aspirin tomorrow morning (4) Chronic kidney disease (CKD), stage III (moderate) Is this a current diagnosis for this admission?: Yes (5) Metabolic encephalopathy Is this a current diagnosis for this admission?: Yes Plan: Patient is confused, etiology is not clear - Time Time Spent with patient: 35 or more minutes Level of Care: IMCU Medications reviewed and adjusted accordingly: Yes
[2019-07-17] MEDS: NORMAL SALINE 1000 ML 1,000 ML IV PRN (20:17)
[2019-07-17] MEDS: ASPIRIN 81 MG TABLET, CHEWABLE PO SCH (21:09)
[2019-07-17] MEDS: ATORVASTATIN CALCIUM 80 MG TABLET PO SCH (21:09)
[2019-07-17] MEDS: LORAZEPAM 1 MG TABLET PO SCH (21:09)
[2019-07-18] MEDS: METOPROLOL TARTRATE 100 MG TABLET PO SCH ×2 (05:45→18:24)
[2019-07-18] MEDS: FENOFIBRATE NANOCRYSTALLIZED 145 MG TABLET PO SCH (08:39)
[2019-07-18] MEDS: SERTRALINE HCL 50 MG TABLET PO SCH (08:39)
[2019-07-18] MEDS: MEGESTROL ACETATE SUSP 400 MG/10 ML UDCUP PO SCH (08:39)
[2019-07-18] MEDS: CEFEPIME HCL 2 GM in DEXTROSE 5%-WATER 50 ML IV SCH ×2 (11:04→21:17)
[2019-07-18] MEDS: VALSARTAN 160 MG TABLET PO SCH (11:26)
[2019-07-18] MEDS: HYDROCHLOROTHIAZIDE 25 MG TABLET PO SCH (11:27)
[2019-07-18] MEDS: AMLODIPINE BESYLATE 10 MG TABLET PO SCH (11:29)
[2019-07-18 11:43] LABS: ABSOLUTE LYMPHOCYTES (AUTO) 0.9 10^3/uL (0.5-4.7); ABSOLUTE NEUT (AUTO) 13.3 10^3/uL (1.7-8.2); BASOPHILS % (AUTO) 0.2 % (0-2); EOSINOPHILS % (AUTO) 0.2 % (0-6); HEMATOCRIT 32.3 % (36.0-47.0); HEMOGLOBIN 11.5 g/dL (12.0-15.5); LYMPHOCYTES % (AUTO) 5.8 % (13-45); MEAN CORPUSCULAR HEMOGLOBIN 26.3 pg (27.0-33.4); MEAN CORPUSCULAR HGB CONC 35.6 g/dL (32.0-36.0); MEAN CORPUSCULAR VOLUME 74 fl (80-97); MONOCYTES % (AUTO) 6.9 % (3-13); PLATELET COUNT 367 10^3/uL (150-450); RED BLOOD COUNT 4.38 10^6/uL (3.72-5.28); RED CELL DISTRIBUTION WIDTH 19.2 % (11.5-14.0); SEGMENTED NEUTROPHILS % (AUTO) 86.9 % (42-78); TOTAL CELLS COUNTED % (AUTO) 100 %; WHITE BLOOD COUNT 15.3 10^3/uL (4.0-10.5)
[2019-07-18 11:56] LABS: ANION GAP 13 (5-19); BLOOD UREA NITROGEN 19 mg/dL (7-20); CALCIUM 10.1 mg/dL (8.4-10.2); CARBON DIOXIDE 18 mmol/L (22-30); CHLORIDE 97 mmol/L (98-107); GLUCOSE 94 mg/dL (75-110); POTASSIUM 3.8 mmol/L (3.6-5.0)
[2019-07-18 12:13] LABS: ANISOCYTOSIS 2+; PLATELET COMMENT ADEQUATE; POLYCHROMASIA SLIGHT; TARGET CELLS 1+; TOXIC VACUOLATION PRESENT
[2019-07-18] MEDS: PRAMIPEXOLE DI-HCL 0.25 MG TABLET PO SCH (18:27)
--- NOTE | 2019-07-18 20:26 | PDOC PROGRESS REPORT ---
Subjective Progress Note for:: 07/18/19 Subjective:: Patient seen by the bedside, she has fluctuating altered mental status withperiod of lucidity and confusion. I received a call today from the pathologist, the biopsy of the lung mass demonstrated squamous cell carcinoma of the lung. Consultation is requested from oncology, I had a long discussion with patient's guardian about her diagnosis that she has a confirmed squamous cell lung cancer based on tissue diagnosis. Also indicated that she is confused ,most likely this could be from medication ,on admission she was very lucid, she was taken off lorazepam that she uses at night, we also DC sertraline and also Megace. She indicated to me in the office before admission that the sertraline was giving her side effects, the medication was prescribed initially by the GI physician when she visited with them regarding her weight loss before I ordered that CAT scan of the chest and abdomen. There is no other evidence to suggest otherwise that the confusion is not medication related. Reason For Visit: LARGE MASS IN RIGHT LOWER LOBE Physical Exam Vital Signs: Temp Pulse Resp BP Pulse Ox 97.5 F 88 16 152/80 H 96 07/18/19 17:56 07/18/19 19:00 07/18/19 17:56 07/18/19 17:56 07/18/19 17:56 Intake & Output 07/17/19 07/18/19 07/19/19 06:59 06:59 06:59 Intake Total 1220 1390 25 Output Total 100 Balance 1120 1390 25 Weight 76.2 kg 74.9 kg 74.9 kg General appearance: PRESENT: no acute distress Eye exam: PRESENT: PERRLA Respiratory exam: PRESENT: rhonchi Cardiovascular exam: PRESENT: +S1, +S2 GI/Abdominal exam: PRESENT: soft Neurological exam: PRESENT: alert Results Laboratory Results: 07/18/19 11:23 07/18/19 11:23 07/18/19 07/18/19 11:23 11:23 WBC 15.3 H RBC 4.38 Hgb 11.5 L Hct 32.3 L MCV 74 L MCH 26.3 L MCHC 35.6 RDW 19.2 H Plt Count 367 Seg Neutrophils % 86.9 H Sodium 127.9 L Potassium 3.8 Chloride 97 L Carbon Dioxide 18 L Anion Gap 13 BUN 19 Creatinine 1.16 Est GFR ( Amer) 55 L Glucose 94 Calcium 10.1 07/13/19 11:00 Blood Blood Culture - Final NO GROWTH IN 5 DAYS 07/13/19 10:47 Blood Blood Culture - Final NO GROWTH IN 5 DAYS Impressions: Chest X-Ray 07/17/19 00:00 IMPRESSION: No postprocedural pneumothorax. Head MRI 07/17/19 00:00 IMPRESSION: 1. No acute intracranial hemorrhage, mass, or evidence of acute territorial infarct/ischemia. 2. Moderate chronic small vessel ischemic change. EVIDENCE OF ACUTE STROKE: NO. Lung Biopsy CT 07/17/19 11:00 IMPRESSION: Successful CT-guided biopsy of the cavitary mass in the right lower lobe as detailed above. Assessment & Plan - Diagnosis (1) Pneumonia Qualifiers: Pneumonia type: due to unspecified organism Laterality: right Lung location: lower lobe of lung Qualified Code(s): J18.9 - Pneumonia, unspecified organism Is this a current diagnosis for this admission?: Yes Plan: Continue IV antibiotic for pneumonia (2) Aorto-iliac atherosclerosis Is this a current diagnosis for this admission?: Yes Plan: continue Xarelto 2.5 mg p.o. twice daily ,baby aspirin (3) Chronic kidney disease (CKD), stage III (moderate) Is this a current diagnosis for this admission?: Yes (4) Metabolic encephalopathy Is this a current diagnosis for this admission?: Yes (5) Squamous cell carcinoma of right lung Is this a current diagnosis for this admission?: Yes Plan: Consult oncology, management per oncology (6) Delirium Is this a current diagnosis for this admission?: Yes Plan: This is probably from medication, discontinue sertraline, discontinue lorazepam, discontinue Megace - Time Time Spent with patient: 35 or more minutes Level of Care: IMCU Medications reviewed and adjusted accordingly: Yes Anticipated discharge: Home Within: within 48 hours
[2019-07-18] MEDS: ASPIRIN 81 MG TABLET, CHEWABLE PO SCH (21:17)
[2019-07-18] MEDS: ATORVASTATIN CALCIUM 80 MG TABLET PO SCH (21:17)
--- NOTE | 2019-07-19 08:22 | PDOC CONSULTATION ---
Consultation Consult Date: 07/19/19 Provider Consulted: LES ROY Consult reason:: Hematology/Oncology consultation was requested for patient with newly diagnosed Squamous Cell Carcinoma of the lungs. History of Present Illness Admission Date/PCP: 07/13/19 09:42 YOLANDA VAZQUEZ MD History of Present Illness: Due to COVID-19 restrictions, I was not able to examine the patient, but consult was performed remotely. ITA WITT is a 74 year old female who is a long- standing smoker. She presented to her PCP with complaints of dyspnea and weight loss. Chest CT was performed which showed a large lung mass. This was biopsied and preliminary report is a Squamous Cell carcinoma. Over the past few days, according to nurses, she has become more confused. She is no longer eating or d rinking. I was not able to reach family at the phone number provided in her chart. However, I believe she was independent of all ADLs prior to admission. Past Medical History Cardiac Medical History: Reports: Myocardial Infarction - 2000, Hyperlipidema, H ypertension Denies: Coronary Artery Disease Pulmonary Medical History: Reports: Pneumonia - As a child Denies: Asthma, Bronchitis, Chronic Obstructive Pulmonary Disease (COPD) Neurological Medical History: Denies: Seizures Endocrine Medical History: Reports: Diabetes Mellitus Type 2 Musculoskeltal Medical History: Reports: Arthritis - Everywhere Psychiatric Medical History: Denies: Depression Hematology: Reports: Anemia Past Surgical History Past Surgical History: Reports: Appendectomy, Cardiac Catheterization - w/stent, Cholecystectomy Social History Smoking Status: Current Every Day Smoker Frequency of Alcohol Use: None Hx Recreational Drug Use: No Drugs: None Hx Prescription Drug Abuse: No Family History Family History: Reviewed & Not Pertinent Parental Family History Reviewed: No - I was not able to obtain family history. Children Family History Reviewed: No Sibling(s) Family History Reviewed.: No Medication/Allergy Home Medications: Clopidogrel Bisulfate [Clopidogrel] 75 mg PO QAM 05/11/16 Fenofibrate Nanocrystallized [Tricor 145 mg Tablet] 145 mg PO QAM 05/11/16 Losartan Potassium [Cozaar 50 mg Tablet] 50 mg PO QAM 05/11/16 Amlodipine/Valsartan/Hcthiazid [Exforge Hct 10-320-25 mg Tab] 1 tab PO DAILY 07/13/19 Megestrol Acetate [Megace Marge 400 mg/10 ml Udcup] 600 mg PO QAM 07/13/19 Metoprolol Tartrate [Lopressor 100 mg Tablet] 100 mg PO BID 07/13/19 Pramipexole Di-HCl [Mirapex] 0.125 mg PO QPM 07/13/19 Sertraline HCl 25 mg PO QAM 07/13/19 Allergies/Adverse Reactions: No Known Drug Allergies Allergy (Verified 07/21/16 14:53) sesonal allergy Allergy (Uncoded 07/20/16 12:46) Review of Systems ROS unobtainable: Due to mental status Physical Exam Vital Signs: Temp Pulse Resp BP Pulse Ox 98.6 F 96 22 H 142/67 H 97 07/18/19 23:07 07/19/19 07:00 07/18/19 23:07 07/18/19 23:07 07/18/19 23:07 Intake & Output 07/18/19 07/19/19 07/20/19 06:59 06:59 06:59 Intake Total 1390 255 Balance 1390 255 Weight 74.9 kg 75.2 kg Exam: Due to COVID-19 restrictions, I was not able to perform physical exam. Results Laboratory Results: 07/18/19 11:23 07/18/19 11:23 07/18/19 07/18/19 11:23 11:23 WBC 15.3 H RBC 4.38 Hgb 11.5 L Hct 32.3 L MCV 74 L MCH 26.3 L MCHC 35.6 RDW 19.2 H Plt Count 367 Seg Neutrophils % 86.9 H Sodium 127.9 L Potassium 3.8 Chloride 97 L Carbon Dioxide 18 L Anion Gap 13 BUN 19 Creatinine 1.16 Est GFR ( Amer) 55 L Glucose 94 Calcium 10.1 07/13/19 11:00 Blood Blood Culture - Final NO GROWTH IN 5 DAYS 07/13/19 10:47 Blood Blood Culture - Final NO GROWTH IN 5 DAYS Impressions: Chest X-Ray 07/17/19 00:00 IMPRESSION: No postprocedural pneumothorax. Head MRI 07/17/19 00:00 IMPRESSION: 1. No acute intracranial hemorrhage, mass, or evidence of acute territorial in farct/ischemia. 2. Moderate chronic small vessel ischemic change. EVIDENCE OF ACUTE STROKE: NO. Lung Biopsy CT 07/17/19 11:00 IMPRESSION: Successful CT-guided biopsy of the cavitary mass in the right lower lobe as detailed above. Status: Image reviewed by me Assessment & Plan - Diagnosis (1) Hyponatremia Is this a current diagnosis for this admission?: Yes Plan: Her Sodium has progressively decreased during her stay. 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 She is not eating or drinking much. I will increase her MIVF to NS at 125 mL/hr and restrict all oral water intake. She may still drink soda or supplements. This may be contributing to the encephalopathy. (2) Chronic kidney disease (CKD), stage III (moderate) Is this a current diagnosis for this admission?: Yes Plan: This has improved. Her Cr is much better. (3) Squamous cell carcinoma of right lung Is this a current diagnosis for this admission?: Yes Plan: I will try to discuss with family, once available, but currently, she is not strong enough to undergo systemic treatment. However, if this is desired, then PET/CT and PD-L1 testing or Omniseq on the path specimen would be needed. These cannot be ordered until patient has been discharged. According to CT scans, this appears to be a stage III, most likely inoperable at this time, but may consider combination of chemo and radiation. She is also a great candidate for Hospice services, based on her rapid decline. This would need to be discussed with patient and family.
[2019-07-19] MEDS: FENOFIBRATE NANOCRYSTALLIZED 145 MG TABLET PO SCH (09:05)
[2019-07-19] MEDS: NORMAL SALINE 1000 ML 1,000 ML IV PRN ×2 (09:06→19:47)
[2019-07-19 09:13] LABS: ANION GAP 15 (5-19); BLOOD UREA NITROGEN 20 mg/dL (7-20); CALCIUM 9.6 mg/dL (8.4-10.2); CARBON DIOXIDE 15 mmol/L (22-30); CHLORIDE 101 mmol/L (98-107); GLUCOSE 86 mg/dL (75-110); POTASSIUM 3.6 mmol/L (3.6-5.0)
[2019-07-19] MEDS: CEFEPIME HCL 2 GM in DEXTROSE 5%-WATER 50 ML IV SCH ×2 (09:45→21:45)
[2019-07-19] MEDS: RIVAROXABAN 10 MG TABLET PO SCH ×3 (12:48→18:10)
[2019-07-19] MEDS: METOPROLOL TARTRATE 100 MG TABLET PO SCH ×2 (12:49→18:13)
[2019-07-19] MEDS: VALSARTAN 160 MG TABLET PO SCH (12:49)
[2019-07-19] MEDS: HYDROCHLOROTHIAZIDE 25 MG TABLET PO SCH (12:50)
[2019-07-19] MEDS: LEVOFLOXACIN 750 MG TABLET PO SCH (12:51)
[2019-07-19] MEDS: AMLODIPINE BESYLATE 10 MG TABLET PO SCH (12:51)
[2019-07-19 14:50] LABS: HEMATOCRIT 32.1 % (36.0-47.0); HEMOGLOBIN 11.3 g/dL (12.0-15.5); MEAN CORPUSCULAR HEMOGLOBIN 26.7 pg (27.0-33.4); MEAN CORPUSCULAR HGB CONC 35.3 g/dL (32.0-36.0); MEAN CORPUSCULAR VOLUME 76 fl (80-97); PLATELET COUNT 372 10^3/uL (150-450); RED BLOOD COUNT 4.25 10^6/uL (3.72-5.28); RED CELL DISTRIBUTION WIDTH 19.4 % (11.5-14.0)
[2019-07-19 14:53] LABS: ABSOLUTE LYMPHOCYTES# (MANUAL) 0.8 10^3/uL (0.5-4.7); ANISOCYTOSIS 2+; BAND NEUTROPHILS % (MANUAL) 1 % (3-5); BASOPHILS % (MANUAL) 0 % (0-2); EOSINOPHILS % (MANUAL) 0 % (0-6); LYMPHOCYTES % (MANUAL) 4 % (13-45); MONOCYTES % (MANUAL) 5 % (3-13); PLATELET COMMENT ADEQUATE; SEGMENTED NEUTROPHILS % (MAN) 90 % (42-78); TOTAL CELLS COUNTED 100
[2019-07-19 14:54] LABS: POIKILOCYTOSIS SLIGHT; POLYCHROMASIA SLIGHT; TARGET CELLS SLIGHT
[2019-07-19] MEDS ORDERED: VANCOMYCIN HCL 0 MG in DEXTROSE 5%-WATER 250 ML IV NR (15:45)
--- NOTE | 2019-07-19 15:45 | PDOC PROGRESS REPORT ---
Subjective Progress Note for:: 07/19/19 Subjective:: Patient seen by the bedside, the condition seems to be worsening, there is obvious evidence of increased work of breathing, using accessory muscles of breathing, There is worsening leukocytosis Despite antibiotic therapy.I had a long talk with family today in the office about diagnosis, I also reviewed the oncology notes Dr. Godfrey, obviously patient is not presently in a clinical state for systemic cancer therapy. She was admitted for pneumonia, treated with ant ibiotic cefepime and Levaquin, in the last few days patient condition has been deteriorating with worsening leukocytosis and delirium. She is a full code, because of COVID the hospital policy is to restrict family Imembers in the hospital, I discussed with the nurse scanning manager that this family may have to get a waiver because patient is declining very rapidly, family need see her present condition and make informed decision. Reason For Visit: LARGE MASS IN RIGHT LOWER LOBE Physical Exam Vital Signs: Temp Pulse Resp BP Pulse Ox 98.4 F 112 H 22 H 145/85 H 98 07/19/19 12:13 07/19/19 14:00 07/19/19 12:13 07/19/19 12:13 07/19/19 12:13 Intake & Output 07/18/19 07/19/19 07/20/19 06:59 06:59 06:59 Intake Total 1390 255 Balance 1390 255 Weight 74.9 kg 75.2 kg General appearance: PRESENT: mild distress Eye exam: PRESENT: PERRLA Respiratory exam: PRESENT: accessory muscle use, rhonchi, wheezes Cardiovascular exam: PRESENT: +S1, +S2 GI/Abdominal exam: PRESENT: soft Neurological exam: PRESENT: alert Results Laboratory Results: 07/19/19 08:33 07/19/19 08:33 07/19/19 07/19/19 08:33 08:33 WBC 19.0 H RBC 4.25 Hgb 11.3 L Hct 32.1 L MCV 76 L MCH 26.7 L MCHC 35.3 RDW 19.4 H Plt Count 372 Seg Neutrophils % Not Reportable Sodium 130.8 L Potassium 3.6 Chloride 101 Carbon Dioxide 15 L Anion Gap 15 BUN 20 Creatinine 1.15 Est GFR ( Amer) 56 L Glucose 86 Calcium 9.6 Impressions: Chest X-Ray 07/17/19 00:00 IMPRESSION: No postprocedural pneumothorax. Head MRI 04/27/20 00:00 IMPRESSION: 1. No acute intracranial hemorrhage, mass, or evidence of acute territorial infarct/ischemia. 2. Moderate chronic small vessel ischemic change. EVIDENCE OF ACUTE STROKE: NO. Lung Biopsy CT 07/17/19 11:00 IMPRESSION: Successful CT-guided biopsy of the cavitary mass in the right lower lobe as detailed above. Assessment & Plan - Diagnosis (1) Pneumonia Qualifiers: Pneumonia type: due to unspecified organism Laterality: right Lung location: lower lobe of lung Qualified Code(s): J18.9 - Pneumonia, unspecified organism Is this a current diagnosis for this admission?: Yes Plan: She has worsening leukocytosis, she has no coverage for MRSA, add vancomycin for MRSA coverage (2) Aorto-iliac atherosclerosis Is this a current diagnosis for this admission?: Yes Plan: continue Xarelto 2.5 mg p.o. twice daily ,baby aspirin (3) Chronic kidney disease (CKD), stage III (moderate) Is this a current diagnosis for this admission?: Yes (4) Metabolic encephalopathy Is this a current diagnosis for this admission?: Yes (5) Squamous cell carcinoma of right lung Is this a current diagnosis for this admission?: Yes Plan: Per oncology recommendation (6) Delirium Is this a current diagnosis for this admission?: Yes - Time Time Spent with patient: 35 or more minutes Level of Care: IMCU Medications reviewed and adjusted accordingly: Yes
[2019-07-19] MEDS: PRAMIPEXOLE DI-HCL 0.25 MG TABLET PO SCH (18:16)
[2019-07-19] MEDS: VANCOMYCIN HCL 1,250 MG in DEXTROSE 5%-WATER 250 ML IV SCH (19:46)
[2019-07-19] MEDS: ASPIRIN 81 MG TABLET, CHEWABLE PO SCH (21:45)
[2019-07-19] MEDS: ATORVASTATIN CALCIUM 80 MG TABLET PO SCH (21:45)
[2019-07-20] MEDS: METOPROLOL TARTRATE 100 MG TABLET PO SCH ×2 (05:28→17:49)
--- NOTE | 2019-07-20 07:14 | Progress Note ---
Provider Note Provider Note: According to the patient's nurse, she did well overnight and is able to answer a bit more than just yes/no questions. She is able to tolerate some liquids, but remains on a free water restriction. Her blood pressure increased yesterday. MIVF were decreased back to 100 ml/hr as she is now drinking some. Await AM labs from this morning. Family was able to visit with her yesterday. Will continue to watich Na and provide ABX. Will check CXR today. Please call with any questions or concerns.
[2019-07-20 08:03] LABS: ANION GAP 9 (5-19); BLOOD UREA NITROGEN 23 mg/dL (7-20); CALCIUM 9.5 mg/dL (8.4-10.2); CARBON DIOXIDE 18 mmol/L (22-30); CHLORIDE 106 mmol/L (98-107); GLUCOSE 98 mg/dL (75-110); POTASSIUM 3.9 mmol/L (3.6-5.0)
[2019-07-20 09:12] LABS: ALBUMIN 2.4 g/dL (3.5-5.0); ALKALINE PHOSPHATASE 63 U/L (38-126); ASPARTATE AMINO TRANSFERASE 73 U/L (14-36); BILIRUBIN,DIRECT 0.2 mg/dL (0.0-0.4); BILIRUBIN,TOTAL 0.8 mg/dL (0.2-1.3); TOTAL PROTEIN 5.4 g/dL (6.3-8.2)
[2019-07-20 09:18] LABS: ABSOLUTE EOSINOPHILS # (AUTO) 0.3 10^3/uL (0.0-0.6); ABSOLUTE LYMPHOCYTES (AUTO) 0.8 10^3/uL (0.5-4.7); BASOPHILS % (AUTO) 0.3 % (0-2); EOSINOPHILS % (AUTO) 1.8 % (0-6); HEMATOCRIT 29.3 % (36.0-47.0); HEMOGLOBIN 10.3 g/dL (12.0-15.5); LYMPHOCYTES % (AUTO) 5.2 % (13-45); MEAN CORPUSCULAR HGB CONC 35.2 g/dL (32.0-36.0); MEAN CORPUSCULAR VOLUME 74 fl (80-97); MONOCYTES % (AUTO) 6.9 % (3-13); PLATELET COUNT 387 10^3/uL (150-450); RED BLOOD COUNT 3.97 10^6/uL (3.72-5.28); SEGMENTED NEUTROPHILS % (AUTO) 85.8 % (42-78); TOTAL CELLS COUNTED % (AUTO) 100 %; WHITE BLOOD COUNT 15.1 10^3/uL (4.0-10.5)
--- NOTE | 2019-07-20 09:33 | RADIOLOGY REPORT (SQ) ---
EXAM DESCRIPTION: CHEST SINGLE VIEW IMAGES COMPLETED DATE/TIME: 07/20/2019 9:01 am REASON FOR STUDY: fluid status monitoring COMPARISON: 07/17/2019 EXAM PARAMETERS: NUMBER OF VIEWS: One view. TECHNIQUE: Single frontal radiographic view of the chest acquired. RADIATION DOSE: NA LIMITATIONS: None. FINDINGS: LUNGS AND PLEURA: Patient has a known cavitary mass in the medial right lower lobe which h as been recently biopsied and is not well visualized. No pneumothorax. There is increasing parenchy mal density in the left upper lobe. MEDIASTINUM AND HILAR STRUCTURES: No masses. Contour normal. HEART AND VASCULAR STRUCTURES: Heart normal in size. Normal vasculature. BONES: No acute findings. HARDWARE: None in the chest. OTHER: No other significant finding. IMPRESSION: Rehydration versus progressing pneumonia or metastatic disease in the left upper lobe. TECHNICAL DOCUMENTATION: JOB ID: [id number] 2010 [employer]- All Rights Reserved Reading location - IP/workstation name: [email or web address]
[2019-07-20 09:38] LABS: ANISOCYTOSIS 2+; PLATELET COMMENT ADEQUATE
[2019-07-20 09:42] LABS: POIKILOCYTOSIS 1+; POLYCHROMASIA SLIGHT; TARGET CELLS 1+
[2019-07-20] MEDS: VALSARTAN 160 MG TABLET PO SCH (12:09)
[2019-07-20] MEDS: RIVAROXABAN 10 MG TABLET PO SCH ×2 (12:09→17:49)
[2019-07-20] MEDS: AMLODIPINE BESYLATE 10 MG TABLET PO SCH (12:10)
[2019-07-20] MEDS: HYDROCHLOROTHIAZIDE 25 MG TABLET PO SCH (12:10)
[2019-07-20] MEDS: CEFEPIME HCL 2 GM in DEXTROSE 5%-WATER 50 ML IV SCH (12:13)
[2019-07-20] MEDS: FENOFIBRATE NANOCRYSTALLIZED 145 MG TABLET PO SCH (12:23)
--- NOTE | 2019-07-20 13:58 | ADVANCED CARE ---
- Diagnosis (2) Aorto-iliac atherosclerosis Diagnosis Current: Yes (3) Chronic kidney disease (CKD), stage III (moderate) Diagnosis Current: Yes (5) Squamous cell carcinoma of right lung Diagnosis Current: Yes (6) Delirium Diagnosis Current: Yes Resuscitation Status: Do Not Resuscitate Discussion: She has a living will, I also discussed with patient's daughter, my office have a copy of the living will which I reviewed, she wants to be a DNR in the setting of life-threatening disease, She will be made a DNR according to her wishes
[2019-07-20] MEDS: PRAMIPEXOLE DI-HCL 0.25 MG TABLET PO SCH (17:48)
[2019-07-20] MEDS: VANCOMYCIN HCL 1,250 MG in DEXTROSE 5%-WATER 250 ML IV SCH (17:51)
--- NOTE | 2019-07-20 19:17 | PDOC PROGRESS REPORT ---
Subjective Progress Note for:: 07/20/19 Subjective:: Patient seen today by the bedside, she is more coherent, alert, responsive, dramatic change from yesterday when she was completely delirious. The white blood cell also decreased, yesterday she was started on vancomycin to cover for MRSA, she was previously on cefepime and Levaquin. Chest x-ray was done today, it demonstrated increasing parenchymal density in the left upper lobe, differential diagnosis include rehydration, progressive pneumonia, or metastatic disease. I reviewed the x-ray myself, it does not look like volume overload, it looks more like either pneumonia process or metastatic disease CT chest will be obtained to further define this lesion. The nurse was concerned about film overload, the IV fluid was temporary discontinued, she be maintain on KVO Reason For Visit: LARGE MASS IN RIGHT LOWER LOBE Physical Exam Vital Signs: Temp Pulse Resp BP Pulse Ox 97.3 F 84 14 152/81 H 95 07/20/19 08:34 07/20/19 14:00 07/20/19 08:34 07/20/19 08:34 07/20/19 08:34 Intake & Output 07/19/19 07/20/19 07/21/19 06:59 06:59 06:59 Intake Total 255 1350 Balance 255 1350 Weight 75.2 kg 75.3 kg General appearance: PRESENT: no acute distress Eye exam: PRESENT: PERRLA Respiratory exam: PRESENT: clear to auscultation kenney Cardiovascular exam: PRESENT: +S1, +S2 GI/Abdominal exam: PRESENT: soft Neurological exam: PRESENT: alert, CN II-XII grossly intact Results Laboratory Results: 07/20/19 07:14 07/20/19 07:14 07/20/19 07/20/19 07/20/19 07:14 07:14 07:14 WBC 15.1 H RBC 3.97 Hgb 10.3 L Hct 29.3 L MCV 74 L MCH 26.0 L MCHC 35.2 RDW 19.0 H Plt Count 387 Seg Neutrophils % 85.8 H Sodium 132.5 L Potassium 3.9 Chloride 106 Carbon Dioxide 18 L Anion Gap 9 BUN 23 H Creatinine 1.16 Est GFR ( Amer) 55 L Glucose 98 Calcium 9.5 Total Bilirubin 0.8 AST 73 H Alkaline Phosphatase 63 Total Protein 5.4 L Albumin 2.4 L Impressions: Head MRI 07/17/19 00:00 IMPRESSION: 1. No acute intracranial hemorrhage, mass, or evidence of acute territorial infarct/ischemia. 2. Moderate chronic small vessel ischemic change. EVIDENCE OF ACUTE STROKE: NO. Lung Biopsy CT 07/17/19 11:00 IMPRESSION: Successful CT-guided biopsy of the cavitary mass in the right lower lobe as detailed above. Chest X-Ray 07/20/19 00:00 IMPRESSION: Rehydration versus progressing pneumonia or metastatic disease in the left upper lobe. Assessment & Plan - Diagnosis (1) Pneumonia Qualifiers: Pneumonia type: due to unspecified organism Laterality: right Lung location: lower lobe of lung Qualified Code(s): J18.9 - Pneumonia, unspecified organism Is this a current diagnosis for this admission?: Yes Plan: There is no specific pathogen isolated, presently on empiric antibiotic treatment, cefepime, Levaquin, vancomycin this Antibiotic will cover all potential pathogens (2) Aorto-iliac atherosclerosis Is this a current diagnosis for this admission?: Yes Plan: continue Xarelto 2.5 mg p.o. twice daily ,baby aspirin (3) Chronic kidney disease (CKD), stage III (moderate) Is this a current diagnosis for this admission?: Yes Plan: Stable (4) Metabolic encephalopathy Is this a current diagnosis for this admission?: Yes Plan: Improved (5) Squamous cell carcinoma of right lung Is this a current diagnosis for this admission?: Yes Plan: Per oncology recommendation (6) Delirium Is this a current diagnosis for this admission?: Yes Plan: Resolved - Time Time Spent with patient: 35 or more minutes Level of Care: IMCU Medications reviewed and adjusted accordingly: Yes
[2019-07-20] MEDS: ASPIRIN 81 MG TABLET, CHEWABLE PO SCH (21:30)
[2019-07-20] MEDS: ATORVASTATIN CALCIUM 80 MG TABLET PO SCH (21:30)
[2019-07-21] MEDS: METOPROLOL TARTRATE 100 MG TABLET PO SCH ×2 (05:12→18:02)
[2019-07-21 06:42] LABS: ABSOLUTE EOSINOPHILS # (AUTO) 0.2 10^3/uL (0.0-0.6); ABSOLUTE LYMPHOCYTES (AUTO) 0.9 10^3/uL (0.5-4.7); ABSOLUTE MONOCYTES (AUTO) 0.9 10^3/uL (0.1-1.4); ABSOLUTE NEUT (AUTO) 11.7 10^3/uL (1.7-8.2); BASOPHILS % (AUTO) 0.3 % (0-2); EOSINOPHILS % (AUTO) 1.8 % (0-6); HEMATOCRIT 29.9 % (36.0-47.0); HEMOGLOBIN 10.9 g/dL (12.0-15.5); LYMPHOCYTES % (AUTO) 6.6 % (13-45); MEAN CORPUSCULAR HEMOGLOBIN 26.4 pg (27.0-33.4); MEAN CORPUSCULAR HGB CONC 36.3 g/dL (32.0-36.0); MEAN CORPUSCULAR VOLUME 73 fl (80-97); MONOCYTES % (AUTO) 6.6 % (3-13); PLATELET COUNT 397 10^3/uL (150-450); RED BLOOD COUNT 4.11 10^6/uL (3.72-5.28); RED CELL DISTRIBUTION WIDTH 19.4 % (11.5-14.0); SEGMENTED NEUTROPHILS % (AUTO) 84.7 % (42-78); TOTAL CELLS COUNTED % (AUTO) 100 %; WHITE BLOOD COUNT 13.8 10^3/uL (4.0-10.5)
[2019-07-21 06:54] LABS: ALBUMIN 2.8 g/dL (3.5-5.0); ALKALINE PHOSPHATASE 82 U/L (38-126); ANION GAP 11 (5-19); ASPARTATE AMINO TRANSFERASE 114 U/L (14-36); BILIRUBIN,DIRECT 0.3 mg/dL (0.0-0.4); BILIRUBIN,TOTAL 0.8 mg/dL (0.2-1.3); BLOOD UREA NITROGEN 23 mg/dL (7-20); CALCIUM 9.6 mg/dL (8.4-10.2); CARBON DIOXIDE 18 mmol/L (22-30); CHLORIDE 103 mmol/L (98-107); GLUCOSE 105 mg/dL (75-110); POTASSIUM 3.9 mmol/L (3.6-5.0); TOTAL PROTEIN 5.9 g/dL (6.3-8.2)
[2019-07-21 07:15] LABS: ANISOCYTOSIS 2+
[2019-07-21 07:16] LABS: HYPOCHROMASIA SLIGHT
[2019-07-21 07:18] LABS: PLATELET COMMENT ADEQUATE; POIKILOCYTOSIS SLIGHT; TARGET CELLS 1+
[2019-07-21] MEDS: FENOFIBRATE NANOCRYSTALLIZED 145 MG TABLET PO SCH (08:14)
[2019-07-21] MEDS: NORMAL SALINE 1000 ML 1,000 ML IV PRN (08:16)
[2019-07-21] MEDS: VALSARTAN 160 MG TABLET PO SCH (09:20)
[2019-07-21] MEDS: HYDROCHLOROTHIAZIDE 25 MG TABLET PO SCH (09:20)
[2019-07-21] MEDS: RIVAROXABAN 10 MG TABLET PO SCH ×2 (09:20→18:03)
[2019-07-21] MEDS: AMLODIPINE BESYLATE 10 MG TABLET PO SCH (09:20)
[2019-07-21] MEDS: LEVOFLOXACIN 750 MG TABLET PO SCH (09:20)
[2019-07-21] MEDS: VANCOMYCIN HCL 1,250 MG in DEXTROSE 5%-WATER 250 ML IV SCH (18:03)
[2019-07-21] MEDS: PRAMIPEXOLE DI-HCL 0.25 MG TABLET PO SCH (18:03)
--- NOTE | 2019-07-21 18:30 | PDOC PROGRESS REPORT ---
Subjective Progress Note for:: 07/21/19 Subjective:: Patient showingclinical improvement but she is obviously very deconditioned, weak, she wants to know if she had a stroke because she said she is not able to remember things that she was able to previously. She is very slow in conversation, no specific pathogen was isolated from body fluid,but patient has been improving since she was started on vancomycin Reason For Visit: LARGE MASS IN RIGHT LOWER LOBE Physical Exam Vital Signs: Temp Pulse Resp BP Pulse Ox 97.2 F 111 H 18 127/74 H 92 07/21/19 12:13 07/21/19 14:00 07/21/19 12:13 07/21/19 12:13 07/21/19 16:15 Intake & Output 07/20/19 07/21/19 07/22/19 06:59 06:59 06:59 Intake Total 1350 750 118 Balance 1350 750 118 Weight 75.3 kg 74.3 kg 74.3 kg General appearance: PRESENT: no acute distress Eye exam: PRESENT: PERRLA Respiratory exam: PRESENT: clear to auscultation kenney Cardiovascular exam: PRESENT: +S1, +S2 GI/Abdominal exam: PRESENT: soft Neurological exam: PRESENT: alert Results Laboratory Results: 07/21/19 05:49 07/21/19 05:49 07/21/19 07/21/19 05:49 05:49 WBC 13.8 H RBC 4.11 Hgb 10.9 L Hct 29.9 L MCV 73 L MCH 26.4 L MCHC 36.3 H RDW 19.4 H Plt Count 397 Seg Neutrophils % 84.7 H Sodium 132.4 L Potassium 3.9 Chloride 103 Carbon Dioxide 18 L Anion Gap 11 BUN 23 H Creatinine 0.91 Est GFR ( Amer) > 60 Glucose 105 Calcium 9.6 Total Bilirubin 0.8 AST 114 H Alkaline Phosphatase 82 Total Protein 5.9 L Albumin 2.8 L Impressions: Head MRI 07/17/19 00:00 IMPRESSION: 1. No acute intracranial hemorrhage, mass, or evidence of acute territorial infarct/ischemia. 2. Moderate chronic small vessel ischemic change. EVIDENCE OF ACUTE STROKE: NO. Lung Biopsy CT 07/17/19 11:00 IMPRESSION: Successful CT-guided biopsy of the cavitary mass in the right lower lobe as detailed above. Chest X-Ray 04/30/20 00:00 IMPRESSION: Rehydration versus progressing pneumonia or metastatic disease in the left upper lobe. Assessment & Plan - Diagnosis (1) Pneumonia Qualifiers: Pneumonia type: due to unspecified organism Laterality: right Lung location: lower lobe of lung Qualified Code(s): J18.9 - Pneumonia, unspecified organism Is this a current diagnosis for this admission?: Yes Plan: There is no specific pathogen isolated, presently on empiric antibiotic treatment, cefepime, Levaquin, vancomycin this Antibiotic will cover all potential pathogens (2) Aorto-iliac atherosclerosis Is this a current diagnosis for this admission?: Yes Plan: continue Xarelto 2.5 mg p.o. twice daily ,baby aspirin (3) Chronic kidney disease (CKD), stage III (moderate) Is this a current diagnosis for this admission?: Yes Plan: Stable (4) Metabolic encephalopathy Is this a current diagnosis for this admission?: Yes Plan: Improved (5) Squamous cell carcinoma of right lung Is this a current diagnosis for this admission?: Yes Plan: Per oncology recommendation (6) Delirium Is this a current diagnosis for this admission?: Yes Plan: Resolved - Time Time Spent with patient: 25-34 minutes Level of Care: IMCU
[2019-07-21] MEDS: ATORVASTATIN CALCIUM 80 MG TABLET PO SCH (21:02)
[2019-07-21] MEDS: ASPIRIN 81 MG TABLET, CHEWABLE PO SCH (21:02)
[2019-07-22] MEDS: NORMAL SALINE 1000 ML 1,000 ML IV PRN (05:27)
[2019-07-22] MEDS: METOPROLOL TARTRATE 100 MG TABLET PO SCH ×2 (05:28→18:13)
[2019-07-22 06:12] LABS: ANION GAP 9 (5-19); BLOOD UREA NITROGEN 30 mg/dL (7-20); CALCIUM 9.6 mg/dL (8.4-10.2); CARBON DIOXIDE 21 mmol/L (22-30); CHLORIDE 100 mmol/L (98-107); GLUCOSE 110 mg/dL (75-110); POTASSIUM 3.9 mmol/L (3.6-5.0)
[2019-07-22] MEDS: AMLODIPINE BESYLATE 10 MG TABLET PO SCH (09:51)
[2019-07-22] MEDS: HYDROCHLOROTHIAZIDE 25 MG TABLET PO SCH (09:51)
[2019-07-22] MEDS: FENOFIBRATE NANOCRYSTALLIZED 145 MG TABLET PO SCH (09:51)
[2019-07-22] MEDS: RIVAROXABAN 10 MG TABLET PO SCH ×2 (09:51→18:13)
[2019-07-22] MEDS: VALSARTAN 160 MG TABLET PO SCH (09:51)
[2019-07-22 12:38] LABS: ABSOLUTE BASOPHILS # (AUTO) 0.1 10^3/uL (0.0-0.2); ABSOLUTE EOSINOPHILS # (AUTO) 0.2 10^3/uL (0.0-0.6); ABSOLUTE LYMPHOCYTES (AUTO) 1.1 10^3/uL (0.5-4.7); ABSOLUTE NEUT (AUTO) 11.6 10^3/uL (1.7-8.2); BASOPHILS % (AUTO) 0.8 % (0-2); EOSINOPHILS % (AUTO) 1.2 % (0-6); HEMATOCRIT 28.4 % (36.0-47.0); HEMOGLOBIN 9.9 g/dL (12.0-15.5); LYMPHOCYTES % (AUTO) 7.6 % (13-45); MEAN CORPUSCULAR HEMOGLOBIN 25.8 pg (27.0-33.4); MEAN CORPUSCULAR HGB CONC 34.9 g/dL (32.0-36.0); MEAN CORPUSCULAR VOLUME 74 fl (80-97); PLATELET COUNT 404 10^3/uL (150-450); RED BLOOD COUNT 3.84 10^6/uL (3.72-5.28); RED CELL DISTRIBUTION WIDTH 19.5 % (11.5-14.0); SEGMENTED NEUTROPHILS % (AUTO) 83.4 % (42-78); TOTAL CELLS COUNTED % (AUTO) 100 %; WHITE BLOOD COUNT 13.9 10^3/uL (4.0-10.5)
[2019-07-22 12:54] LABS: ANISOCYTOSIS 1+; HYPOCHROMASIA SLIGHT; PLATELET CLUMPS PRESENT; PLATELET COMMENT ADEQUATE; POIKILOCYTOSIS 1+; TARGET CELLS 1+
--- NOTE | 2019-07-22 13:05 | PDOC PROGRESS REPORT ---
Subjective Progress Note for:: 07/22/19 Subjective:: Patient continues to show progressive improvement in treatment, she is out of bed to chair today Reason For Visit: LARGE MASS IN RIGHT LOWER LOBE Physical Exam Vital Signs: Temp Pulse Resp BP Pulse Ox 97.2 F 91 16 119/76 92 07/22/19 11:53 07/22/19 11:53 07/22/19 11:53 07/22/19 11:53 07/22/19 11:53 Intake & Output 07/21/19 07/22/19 07/23/19 06:59 06:59 06:59 Intake Total 750 1573 250 Output Total 1 Balance 750 1572 250 Weight 74.3 kg 74.1 kg General appearance: PRESENT: no acute distress Eye exam: PRESENT: PERRLA Respiratory exam: PRESENT: clear to auscultation kenney Cardiovascular exam: PRESENT: +S1, +S2 GI/Abdominal exam: PRESENT: soft Neurological exam: PRESENT: alert Results Laboratory Results: 07/22/19 05:30 07/22/19 05:30 07/22/19 07/22/19 05:30 05:30 WBC 13.9 H RBC 3.84 Hgb 9.9 L Hct 28.4 L MCV 74 L MCH 25.8 L MCHC 34.9 RDW 19.5 H Plt Count 404 Seg Neutrophils % 83.4 H Sodium 130.4 L Potassium 3.9 Chloride 100 Carbon Dioxide 21 L Anion Gap 9 BUN 30 H Creatinine 1.00 Est GFR ( Amer) > 60 Glucose 110 Calcium 9.6 Impressions: Head MRI 07/17/19 00:00 IMPRESSION: 1. No acute intracranial hemorrhage, mass, or evidence of acute territorial infarct/ischemia. 2. Moderate chronic small vessel ischemic change. EVIDENCE OF ACUTE STROKE: NO. Lung Biopsy CT 07/17/19 11:00 IMPRESSION: Successful CT-guided biopsy of the cavitary mass in the right lower lobe as detailed above. Chest X-Ray 07/20/19 00:00 IMPRESSION: Rehydration versus progressing pneumonia or metastatic disease in the left upper lobe. Assessment & Plan - Diagnosis (1) Pneumonia Qualifiers: Pneumonia type: due to unspecified organism Laterality: right Lung location: lower lobe of lung Qualified Code(s): J18.9 - Pneumonia, unspecified organism Is this a current diagnosis for this admission?: Yes Plan: There is no specific pathogen isolated, presently on empiric antibiotic treatment, cefepime, Levaquin, vancomycin this Antibiotic will cover all potential pathogens (2) Aorto-iliac atherosclerosis Is this a current diagnosis for this admission?: Yes Plan: continue Xarelto 2.5 mg p.o. twice daily ,baby aspirin (3) Chronic kidney disease (CKD), stage III (moderate) Is this a current diagnosis for this admission?: Yes Plan: Stable (4) Metabolic encephalopathy Is this a current diagnosis for this admission?: Yes Plan: Improved (5) Squamous cell carcinoma of right lung Is this a current diagnosis for this admission?: Yes Plan: Per oncology recommendation (6) Delirium Is this a current diagnosis for this admission?: Yes Plan: Resolved - Time Time Spent with patient: 35 or more minutes Level of Care: IMCU
[2019-07-22 18:11] LABS: VANCOMYCIN,TROUGH 13.7 ug/mL (5.0-20.0)
[2019-07-22] MEDS: PRAMIPEXOLE DI-HCL 0.25 MG TABLET PO SCH (18:13)
[2019-07-22] MEDS: VANCOMYCIN HCL 1,250 MG in DEXTROSE 5%-WATER 250 ML IV SCH (18:13)
[2019-07-22] MEDS: ATORVASTATIN CALCIUM 80 MG TABLET PO SCH (21:44)
[2019-07-22] MEDS: ASPIRIN 81 MG TABLET, CHEWABLE PO SCH (21:45)
[2019-07-23 05:28] LABS: ABSOLUTE BASOPHILS # (AUTO) 0.1 10^3/uL (0.0-0.2); ABSOLUTE EOSINOPHILS # (AUTO) 0.2 10^3/uL (0.0-0.6); ABSOLUTE LYMPHOCYTES (AUTO) 1.2 10^3/uL (0.5-4.7); ABSOLUTE MONOCYTES (AUTO) 1.1 10^3/uL (0.1-1.4); ABSOLUTE NEUT (AUTO) 12.4 10^3/uL (1.7-8.2); BASOPHILS % (AUTO) 0.5 % (0-2); EOSINOPHILS % (AUTO) 1.4 % (0-6); HEMATOCRIT 27.1 % (36.0-47.0); HEMOGLOBIN 9.6 g/dL (12.0-15.5); LYMPHOCYTES % (AUTO) 8.2 % (13-45); MEAN CORPUSCULAR HEMOGLOBIN 25.9 pg (27.0-33.4); MEAN CORPUSCULAR HGB CONC 35.5 g/dL (32.0-36.0); MEAN CORPUSCULAR VOLUME 73 fl (80-97); MONOCYTES % (AUTO) 7.5 % (3-13); PLATELET COUNT 429 10^3/uL (150-450); RED BLOOD COUNT 3.71 10^6/uL (3.72-5.28); RED CELL DISTRIBUTION WIDTH 18.8 % (11.5-14.0); SEGMENTED NEUTROPHILS % (AUTO) 82.4 % (42-78); TOTAL CELLS COUNTED % (AUTO) 100 %
[2019-07-23] MEDS: METOPROLOL TARTRATE 100 MG TABLET PO SCH ×2 (05:32→17:17)
[2019-07-23 05:55] LABS: ANION GAP 10 (5-19); BLOOD UREA NITROGEN 35 mg/dL (7-20); CARBON DIOXIDE 22 mmol/L (22-30); CHLORIDE 99 mmol/L (98-107); GLUCOSE 108 mg/dL (75-110); POTASSIUM 4.3 mmol/L (3.6-5.0)
[2019-07-23] MEDS: VALSARTAN 160 MG TABLET PO SCH (09:11)
[2019-07-23] MEDS: HYDROCHLOROTHIAZIDE 25 MG TABLET PO SCH (09:11)
[2019-07-23] MEDS: FENOFIBRATE NANOCRYSTALLIZED 145 MG TABLET PO SCH (09:11)
[2019-07-23] MEDS: AMLODIPINE BESYLATE 10 MG TABLET PO SCH (09:11)
[2019-07-23] MEDS: RIVAROXABAN 10 MG TABLET PO SCH ×2 (09:11→17:16)
--- NOTE | 2019-07-23 14:45 | PDOC PROGRESS REPORT ---
Subjective Progress Note for:: 07/23/19 Subjective:: Patient seen by the bedside, she has worsening leukocytosis after slight improvement, it is probably reasonable to check the lung again with a scan, I was hoping that she could be discharge home tomorrow afternoon, this will depend on the finding on the CAT scan Reason For Visit: LARGE MASS IN RIGHT LOWER LOBE Physical Exam Vital Signs: Temp Pulse Resp BP Pulse Ox 98.1 F 84 16 142/78 H 92 07/23/19 11:37 07/23/19 11:37 07/23/19 11:37 07/23/19 11:37 07/23/19 11:37 Intake & Output 07/22/19 07/23/19 07/24/19 06:59 06:59 06:59 Intake Total 1573 1175 240 Output Total 1 250 Balance 1572 925 240 Weight 74.1 kg 73.8 kg General appearance: PRESENT: no acute distress Respiratory exam: PRESENT: clear to auscultation kenney Cardiovascular exam: PRESENT: +S1, +S2 GI/Abdominal exam: PRESENT: soft Neurological exam: PRESENT: alert Results Laboratory Results: 07/23/19 05:09 07/23/19 05:09 07/22/19 07/23/19 07/23/19 17:40 05:09 05:09 WBC 15.0 H RBC 3.71 L Hgb 9.6 L Hct 27.1 L MCV 73 L MCH 25.9 L MCHC 35.5 RDW 18.8 H Plt Count 429 Seg Neutrophils % 82.4 H Sodium 130.8 L Potassium 4.3 Chloride 99 Carbon Dioxide 22 Anion Gap 10 BUN 35 H Creatinine 1.19 1.18 Est GFR ( Amer) 54 L 54 L Glucose 108 Calcium 10.0 Stool Occult Blood 07/23/19 12:55 WBC RBC Hgb Hct MCV MCH MCHC RDW Plt Count Seg Neutrophils % Sodium Potassium Chloride Carbon Dioxide Anion Gap BUN Creatinine Est GFR ( Amer) Glucose Calcium Stool Occult Blood POSITIVE Impressions: Head MRI 07/17/19 00:00 IMPRESSION: 1. No acute intracranial hemorrhage, mass, or evidence of acute territorial infarct/ischemia. 2. Moderate chronic small vessel ischemic change. EVIDENCE OF ACUTE STROKE: NO. Lung Biopsy CT 07/17/19 11:00 IMPRESSION: Successful CT-guided biopsy of the cavitary mass in the right lower lobe as detailed above. Chest X-Ray 07/20/19 00:00 IMPRESSION: Rehydration versus progressing pneumonia or metastatic disease in the left upper lobe. Assessment & Plan - Diagnosis (1) Pneumonia Qualifiers: Pneumonia type: due to unspecified organism Laterality: right Lung location: lower lobe of lung Qualified Code(s): J18.9 - Pneumonia, unspecified organism Is this a current diagnosis for this admission?: Yes Plan: Continue present IV antibiotic (2) Aorto-iliac atherosclerosis Is this a current diagnosis for this admission?: Yes Plan: continue Xarelto 2.5 mg p.o. twice daily ,baby aspirin (3) Chronic kidney disease (CKD), stage III (moderate) Is this a current diagnosis for this admission?: Yes Plan: Increase IV fluid 100 cc/h (4) Metabolic encephalopathy Is this a current diagnosis for this admission?: Yes Plan: Improved (5) Squamous cell carcinoma of right lung Is this a current diagnosis for this admission?: Yes Plan: Per oncology recommendation (6) Delirium Is this a current diagnosis for this admission?: Yes Plan: Resolved - Time Time Spent with patient: 35 or more minutes Level of Care: IMCU
--- NOTE | 2019-07-23 16:00 | RADIOLOGY REPORT (SQ) ---
EXAM DESCRIPTION: CT CHEST WITH IMAGES COMPLETED DATE/TIME: 07/23/2019 2:45 pm REASON FOR STUDY: WORSENING LEUCOCYTOSIS IN PNEUMONIA COMPARISON: Chest radiograph 07/20/2019 TECHNIQUE: CT scan of the chest performed using helical scanning technique with dynamic intravenous contrast injection. Images reviewed with lung, soft tissue and bone windows. Reconstructed coronal and sagittal MPR and MIP images reviewed. All images stored on PACS. All CT scanners at this facility use dose modulation, iterative reconstruction, and/or weight based d osing when appropriate to reduce radiation dose to as low as reasonably achievable (ALARA). [facility]: Dose Right [facility]: CareDose [facility]: Dose Right [facility]: Teradose 4D [facility]: Vacation [place] CONTRAST TYPE AND DOSE: contrast/concentration: Isovue 300.00 mg/ml; Total Contrast Delivered: 80.0 ml; Total Saline Delivered: 38.1 ml RENAL FUNCTION: Creatinine 1.18 today. RADIATION DOSE: CT Rad equipment meets quality standard of care and radiation dose reduction techniq ues were employed. CTDIvol: 5.2 mGy. DLP: 186 mGy-cm. . LIMITATIONS: None. FINDINGS: LUNGS AND PLEURA: The trachea has normal caliber and appearance. There are peripheral pat vladislav areas of ground-glass opacification involving the left and right upper lobe, right middle lobe, a nd left lower lobe. No pleural effusion. Known cavitary mass in the posteromedial right lower lobe measuring 3.8 x 3.5 cm, with irregular nodular soft tissue wall, not significantly changed from previ ous biopsy CT on 07/17/2019. HILAR AND MEDIASTINAL STRUCTURES: The right perihilar mass encasing the right lower lobe pulmonary ar teries is stable from previous. No new adenopathy. HEART AND VASCULAR STRUCTURES: No aneurysm or dissection. No central pulmonary emboli. No pericardi al effusion. HARDWARE: None in the chest. UPPER ABDOMEN: No significant findings. Limited exam. THYROID AND OTHER SOFT TISSUES: No masses. No adenopathy. BONES: No significant finding. OTHER: No other significant finding. IMPRESSION: 1. New multifocal areas of ground-glass attenuation in both lungs suspicious for infectious process. Commonly reported imaging features of Covid 19 pneumonia are present. Other processes such as influ nixon pneumonia and organizing pneumonia, as can be seen with drug toxicity and connective tissue dise ase, can cause a similar imaging pattern. 2. Cavitary pulmonary mass in the medial right lower lobe is unchanged from prior. TECHNICAL DOCUMENTATION: JOB ID: [id number] Quality ID # [id number]: Final reports with documentation of one or more dose reduction techniques (e.g., Au tomated exposure control, adjustment of the mA and/or kV according to patient size, use of iterative reconstruction technique) 2010 [employer]- All Rights Reserved Reading location - IP/workstation name: [email or web address]
[2019-07-23] MEDS: PRAMIPEXOLE DI-HCL 0.25 MG TABLET PO SCH (17:16)
[2019-07-23] MEDS: VANCOMYCIN HCL 1,250 MG in DEXTROSE 5%-WATER 250 ML IV SCH (17:17)
[2019-07-23] MEDS: NORMAL SALINE 1000 ML 1,000 ML IV PRN (17:17)
[2019-07-23 18:32] LABS: ABSOLUTE RETICS # 0.066 10^6/uL (0.028-0.122); RETICULOCYTE COUNT (AUTO) 1.77 % (0.66-2.85)
[2019-07-23 18:39] LABS: IRON(TIBC) 18.9 ug/dL (37-170)
[2019-07-23 19:43] LABS: A TYPE INFLUENZA AG NEGATIVE (NEGATIVE); B INFLUENZA AG NEGATIVE (NEGATIVE)
[2019-07-23 19:45] LABS: FOLATE 4.49 ng/mL (>2.76)
[2019-07-23] MEDS: ATORVASTATIN CALCIUM 80 MG TABLET PO SCH (22:07)
[2019-07-24] MEDS ORDERED: CEFEPIME 2 GM/D5W RTU 2 GM/50 ML RTUPB IV SCH (06:00)
[2019-07-24] MEDS: NORMAL SALINE 1000 ML 1,000 ML IV PRN (06:13)
[2019-07-24] MEDS: METOPROLOL TARTRATE 100 MG TABLET PO SCH ×2 (06:13→17:37)
[2019-07-24] MEDS: LEVOFLOXACIN 750 MG/D5W RTU 750 MG/150 ML RTUPB IV SCH (08:01)
[2019-07-24] MEDS: FENOFIBRATE NANOCRYSTALLIZED 145 MG TABLET PO SCH (08:01)
[2019-07-24 08:35] LABS: ANION GAP 8 (5-19); BLOOD UREA NITROGEN 34 mg/dL (7-20); CALCIUM 9.4 mg/dL (8.4-10.2); CARBON DIOXIDE 22 mmol/L (22-30); CHLORIDE 100 mmol/L (98-107); GLUCOSE 109 mg/dL (75-110); POTASSIUM 3.8 mmol/L (3.6-5.0)
[2019-07-24] MEDS: HYDROCHLOROTHIAZIDE 25 MG TABLET PO SCH (09:56)
[2019-07-24] MEDS: VALSARTAN 160 MG TABLET PO SCH (09:56)
[2019-07-24] MEDS: AMLODIPINE BESYLATE 10 MG TABLET PO SCH (09:56)
[2019-07-24] MEDS ORDERED: FUROSEMIDE INJ/PF 40 MG/4 ML SDV IV ONE (13:45)
[2019-07-24] MEDS ORDERED: IPRATROPIUM/ALBUTEROL 0.5-2.5 MG/3 ML AMPUL NEB PRN (16:19)
[2019-07-24] MEDS: PRAMIPEXOLE DI-HCL 0.25 MG TABLET PO SCH (17:37)
[2019-07-24] MEDS: CEFEPIME HCL 2 GM in DEXTROSE 5%-WATER 50 ML IV SCH (17:38)
[2019-07-24] MEDS ORDERED: LEVOFLOXACIN 750 MG/D5W RTU 750 MG/150 ML RTUPB IV SCH (18:00)
[2019-07-24] MEDS: VANCOMYCIN HCL 1,250 MG in DEXTROSE 5%-WATER 250 ML IV SCH (18:10)
[2019-07-24 18:49] LABS: ALBUMIN 2.4 g/dL (3.5-5.0); ALKALINE PHOSPHATASE 84 U/L (38-126); ANION GAP 10 (5-19); ASPARTATE AMINO TRANSFERASE 71 U/L (14-36); BILIRUBIN,DIRECT 0.3 mg/dL (0.0-0.4); BILIRUBIN,TOTAL 0.8 mg/dL (0.2-1.3); BLOOD UREA NITROGEN 34 mg/dL (7-20); CALCIUM 9.6 mg/dL (8.4-10.2); CARBON DIOXIDE 23 mmol/L (22-30); CHLORIDE 97 mmol/L (98-107); GLUCOSE 124 mg/dL (75-110); TOTAL PROTEIN 5.4 g/dL (6.3-8.2)
[2019-07-24 19:00] LABS: HEMATOCRIT 22.9 % (36.0-47.0); MEAN CORPUSCULAR HEMOGLOBIN 25.3 pg (27.0-33.4); MEAN CORPUSCULAR HGB CONC 34.6 g/dL (32.0-36.0); MEAN CORPUSCULAR VOLUME 73 fl (80-97); PLATELET COUNT 472 10^3/uL (150-450); RED BLOOD COUNT 3.13 10^6/uL (3.72-5.28); RED CELL DISTRIBUTION WIDTH 19.4 % (11.5-14.0); WHITE BLOOD COUNT 19.6 10^3/uL (4.0-10.5)
[2019-07-24 19:21] LABS: ABSOLUTE LYMPHOCYTES# (MANUAL) 0.4 10^3/uL (0.5-4.7); ABSOLUTE MONOCYTES # (MANUAL) 0.6 10^3/uL (0.1-1.4); BASOPHILS % (MANUAL) 0 % (0-2); EOSINOPHILS % (MANUAL) 2 % (0-6); LYMPHOCYTES % (MANUAL) 2 % (13-45); MONOCYTES % (MANUAL) 3 % (3-13); SEGMENTED NEUTROPHILS % (MAN) 93 % (42-78); TOTAL CELLS COUNTED 100
[2019-07-24 19:22] LABS: HYPERSEGMENTED NEUTROPHILS PRESENT; PLATELET COMMENT ADEQUATE
[2019-07-24 19:23] LABS: TARGET CELLS 3+
[2019-07-24 19:24] LABS: HYPOCHROMASIA 1+; SCHISTOCYTES SLIGHT
[2019-07-24 19:25] LABS: ANISOCYTOSIS 2+
[2019-07-24 19:29] LABS: HEMOGLOBIN 7.9 g/dL (12.0-15.5)
--- NOTE | 2019-07-24 20:45 | PDOC PROGRESS REPORT ---
Subjective Progress Note for:: 07/24/19 Subjective:: Patient seen by the bedside, she has increased work of breathing today, she has bilateral pneumonia, yesterday she had a rapid SARS-CoV-2 PCR test that was negative, influenza test negative. No organism presently isolated from the sputum, the initial plan was for patient to be discharged home today but this is not possible at this time. Yesterday she had passage of black tarry stool, she has a history of GI tract angiodysplasia, she was started on low-dose Xarelto 2.5 mg p.o. twice daily aspirin for atherosclerosis of the aortic iliac arterial system with stenosis. Reason For Visit: LARGE MASS IN RIGHT LOWER LOBE Physical Exam Vital Signs: Temp Pulse Resp BP Pulse Ox 98.1 F 101 H 35 H 115/69 97 07/24/19 16:54 07/24/19 16:54 07/24/19 16:54 07/24/19 16:54 07/24/19 16:54 Intake & Output 07/23/19 07/24/19 07/25/19 06:59 06:59 06:59 Intake Total 1175 2730 1143 Output Total 250 Balance 925 2730 1143 Weight 73.8 kg 74.9 kg 74.9 kg General appearance: PRESENT: mild distress Eye exam: PRESENT: PERRLA Respiratory exam: PRESENT: rhonchi Cardiovascular exam: PRESENT: +S1, +S2 GI/Abdominal exam: PRESENT: soft Neurological exam: PRESENT: alert Results Laboratory Results: 07/24/19 18:21 07/24/19 18:21 07/24/19 07/24/19 07/24/19 07:38 18:21 18:21 WBC 19.6 H RBC 3.13 L Hgb 7.9 L Hct 22.9 L MCV 73 L MCH 25.3 L MCHC 34.6 RDW 19.4 H Plt Count 472 H Seg Neutrophils % Not Reportable Sodium 130.0 L 129.5 L Potassium 3.8 4.0 Chloride 100 97 L Carbon Dioxide 22 23 Anion Gap 8 10 BUN 34 H 34 H Creatinine 1.13 1.42 H Est GFR ( Amer) 57 L 44 L Glucose 109 124 H Calcium 9.4 9.6 Total Bilirubin 0.8 AST 71 H Alkaline Phosphatase 84 Total Protein 5.4 L Albumin 2.4 L Impressions: Head MRI 07/17/19 00:00 IMPRESSION: 1. No acute intracranial hemorrhage, mass, or evidence of acute territorial infarct/ischemia. 2. Moderate chronic small vessel ischemic change. EVIDENCE OF ACUTE STROKE: NO. Lung Biopsy CT 07/17/19 11:00 IMPRESSION: Successful CT-guided biopsy of the cavitary mass in the right lower lobe as detailed above. Chest X-Ray 07/20/19 00:00 IMPRESSION: Rehydration versus progressing pneumonia or metastatic disease in the left upper lobe. Chest CT 07/23/19 00:00 IMPRESSION: 1. New multifocal areas of ground-glass attenuation in both lungs suspicious for infectious process. Commonly reported imaging features of Covid 19 pneumonia are present. Other processes such as influenza pneumonia and organizing pneumonia, as can be seen with drug toxicity and connective tissue disease, can cause a similar imaging pattern. 2. Cavitary pulmonary mass in the medial right lower lobe is unchanged from prior. Assessment & Plan - Diagnosis (1) Pneumonia Qualifiers: Pneumonia type: due to unspecified organism Laterality: right Lung location: lower lobe of lung Qualified Code(s): J18.9 - Pneumonia, unspecified organism Is this a current diagnosis for this admission?: Yes Plan: She has worsening leukocytosis despite triple antibiotic, consult pulmonary (2) Aorto-iliac atherosclerosis Is this a current diagnosis for this admission?: Yes (3) Chronic kidney disease (CKD), stage III (moderate) Is this a current diagnosis for this admission?: Yes (4) Metabolic encephalopathy Is this a current diagnosis for this admission?: Yes (5) Squamous cell carcinoma of right lung Is this a current diagnosis for this admission?: Yes Plan: Per oncology (6) Delirium Is this a current diagnosis for this admission?: Yes (7) Anemia Qualifiers: Anemia type: other cause Other causes of anemia: acute posthemorrhagic Q ualified Code(s): D62 - Acute posthemorrhagic anemia Is this a current diagnosis for this admission?: Yes Plan: The blood count is low transfused with 2 units of packed red blood cells (8) Angiodysplasia of intestine with hemorrhage Is this a current diagnosis for this admission?: Yes (9) Acute hypoxemic respiratory failure Is this a current diagnosis for this admission?: Yes Plan: Patient requiring noninvasive positive pressure ventilation - Time Time Spent with patient: 35 or more minutes Level of Care: IMCU
[2019-07-24] MEDS ORDERED: NORMAL SALINE 250 ML IV PRN ×2 (20:46)
[2019-07-24] MEDS: ATORVASTATIN CALCIUM 80 MG TABLET PO SCH (22:09)
[2019-07-25] MEDS: CEFEPIME HCL 2 GM in DEXTROSE 5%-WATER 50 ML IV SCH ×2 (06:35→18:12)
[2019-07-25] MEDS: METOPROLOL TARTRATE 100 MG TABLET PO SCH ×2 (06:35→18:12)
[2019-07-25] MEDS: VALSARTAN 160 MG TABLET PO SCH (10:38)
[2019-07-25] MEDS: HYDROCHLOROTHIAZIDE 25 MG TABLET PO SCH (10:38)
[2019-07-25] MEDS: AMLODIPINE BESYLATE 10 MG TABLET PO SCH (10:38)
[2019-07-25] MEDS: FENOFIBRATE NANOCRYSTALLIZED 145 MG TABLET PO SCH (10:38)
[2019-07-25] MEDS: LEVOFLOXACIN 750 MG/D5W RTU 750 MG/150 ML RTUPB IV SCH (10:38)
[2019-07-25 11:40] LABS: MEAN CORPUSCULAR HEMOGLOBIN 27.2 pg (27.0-33.4); MEAN CORPUSCULAR HGB CONC 35.8 g/dL (32.0-36.0); MEAN CORPUSCULAR VOLUME 76 fl (80-97); PLATELET COUNT 370 10^3/uL (150-450); RED BLOOD COUNT 3.94 10^6/uL (3.72-5.28); RED CELL DISTRIBUTION WIDTH 18.5 % (11.5-14.0); WHITE BLOOD COUNT 15.6 10^3/uL (4.0-10.5)
[2019-07-25 11:53] LABS: HEMOGLOBIN 10.7 g/dL (12.0-15.5)
[2019-07-25 12:01] LABS: ALBUMIN 2.4 g/dL (3.5-5.0); ALKALINE PHOSPHATASE 73 U/L (38-126); ANION GAP 9 (5-19); ASPARTATE AMINO TRANSFERASE 64 U/L (14-36); BILIRUBIN,DIRECT 1.2 mg/dL (0.0-0.4); BILIRUBIN,TOTAL 2.1 mg/dL (0.2-1.3); BLOOD UREA NITROGEN 39 mg/dL (7-20); CALCIUM 9.5 mg/dL (8.4-10.2); CARBON DIOXIDE 23 mmol/L (22-30); CHLORIDE 98 mmol/L (98-107); GLUCOSE 125 mg/dL (75-110); POTASSIUM 4.1 mmol/L (3.6-5.0); TOTAL PROTEIN 5.2 g/dL (6.3-8.2)
[2019-07-25 12:03] LABS: ABSOLUTE LYMPHOCYTES# (MANUAL) 0.9 10^3/uL (0.5-4.7); ABSOLUTE MONOCYTES # (MANUAL) 0.8 10^3/uL (0.1-1.4); BASOPHILS % (MANUAL) 0 % (0-2); EOSINOPHILS % (MANUAL) 1 % (0-6); LYMPHOCYTES % (MANUAL) 6 % (13-45); MONOCYTES % (MANUAL) 5 % (3-13); SEGMENTED NEUTROPHILS % (MAN) 88 % (42-78); TOTAL CELLS COUNTED 100
[2019-07-25 12:06] LABS: ANISOCYTOSIS 1+; POLYCHROMASIA SLIGHT
[2019-07-25 12:07] LABS: POIKILOCYTOSIS 2+
[2019-07-25 12:08] LABS: BURR CELLS 1+; HYPOCHROMASIA SLIGHT; TARGET CELLS 2+
[2019-07-25 12:11] LABS: PLATELET COMMENT ADEQUATE
[2019-07-25 18:02] LABS: VANCOMYCIN,TROUGH 21.6 ug/mL (5.0-20.0)
[2019-07-25] MEDS: VANCOMYCIN HCL 1,250 MG in DEXTROSE 5%-WATER 250 ML IV SCH (18:12)
[2019-07-25] MEDS: PRAMIPEXOLE DI-HCL 0.25 MG TABLET PO SCH (18:19)
--- NOTE | 2019-07-25 20:02 | PDOC PROGRESS REPORT ---
Subjective Progress Note for:: 07/25/19 Subjective:: Patient seen by the bedside she was transfused with red blood cells yesterday because of anemia due to upper GI angiodysplasia from the use of combination of Xarelto and aspirin for atherosclerosis of aortic iliac arterial system associated with stenosis of the aortic iliac arterial system. 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 She is presently empirically on triple antibiotic, cefepime, Levaquin, vancomycin, no specific pathogen isolated from body fluids, Patient was initially admitted for the management of postobstructive pneumonia due to right lower lobe lung mass, she underwent a CT-guided needle biopsy that confirmed squamous cell carcinoma. She was seen remotely by oncologist the plan was for patient to follow with oncology after discharge but the pneumonia has been progressive since admission now involved the left lung. Consultation will be requested from infectious disease for guidance regarding antibiotic use especially because the treatment presently is empiric there is no organism isolated from body fluid or the sputum family was updated on the patient's condition, progress and prognosis Reason For Visit: LARGE MASS IN RIGHT LOWER LOBE Physical Exam Vital Signs: Temp Pulse Resp BP Pulse Ox 97.3 F 83 33 H 131/66 H 96 07/25/19 09:50 07/25/19 14:00 07/25/19 16:23 07/25/19 09:50 07/25/19 16:23 Intake & Output 07/24/19 07/25/19 07/26/19 06:59 06:59 06:59 Intake Total 2730 1693 500 Balance 2730 1693 500 Weight 74.9 kg 76.2 kg General appearance: PRESENT: no acute distress Eye exam: PRESENT: PERRLA Respiratory exam: PRESENT: rhonchi Cardiovascular exam: PRESENT: +S1, +S2 GI/Abdominal exam: PRESENT: soft Neurological exam: PRESENT: alert, CN II-XII grossly intact Results Laboratory Results: 07/25/19 11:23 07/25/19 11:23 07/24/19 07/25/19 07/25/19 20:57 11:23 11:23 WBC 15.6 H RBC 3.94 Hgb 10.7 L D Hct 30.0 L MCV 76 L MCH 27.2 MCHC 35.8 RDW 18.5 H Plt Count 370 Seg Neutrophils % Not Reportable Sodium 130.4 L Potassium 4.1 Chloride 98 Carbon Dioxide 23 Anion Gap 9 BUN 39 H Creatinine 1.51 H Est GFR ( Amer) 41 L Glucose 125 H Calcium 9.5 Total Bilirubin 2.1 H AST 64 H Alkaline Phosphatase 73 Total Protein 5.2 L Albumin 2.4 L Blood Type B POSITIVE Antibody Screen NEGATIVE 07/23/19 18:40 Throat Throat Culture - Final NORMAL ELENA Impressions: Head MRI 07/17/19 00:00 IMPRESSION: 1. No acute intracranial hemorrhage, mass, or evidence of acute territorial infarct/ischemia. 2. Moderate chronic small vessel ischemic change. EVIDENCE OF ACUTE STROKE: NO. Lung Biopsy CT 07/17/19 11:00 IMPRESSION: Successful CT-guided biopsy of the cavitary mass in the right lower lobe as detailed above. Chest X-Ray 07/20/19 00:00 IMPRESSION: Rehydration versus progressing pneumonia or metastatic disease in the left upper lobe. Chest CT 07/23/19 00:00 IMPRESSION: 1. New multifocal areas of ground-glass attenuation in both lungs suspicious for infectious process. Commonly reported imaging features of Covid 19 pneumonia are present. Other processes such as influenza pneumonia and organizing pneumonia, as can be seen with drug toxicity and connective tissue disease, can cause a similar imaging pattern. 2. Cavitary pulmonary mass in the medial right lower lobe is unchanged from prior. Assessment & Plan - Diagnosis (1) Pneumonia Qualifiers: Pneumonia type: due to unspecified organism Laterality: right Lung location: lower lobe of lung Qualified Code(s): J18.9 - Pneumonia, unspecified organism Is this a current diagnosis for this admission?: Yes Plan: The white blood cell improve some continue present antibiotic coverage, consult ID (2) Aorto-iliac atherosclerosis Is this a current diagnosis for this admission?: Yes Plan: The Xarelto, aspirin discontinued because of upper GI bleed (3) Chronic kidney disease (CKD), stage III (moderate) Is this a current diagnosis for this admission?: Yes (4) Metabolic encephalopathy Is this a current diagnosis for this admission?: Yes Plan: Patient is alert oriented (5) Squamous cell carcinoma of right lung Is this a current diagnosis for this admission?: Yes Plan: Per oncology (6) Delirium Is this a current diagnosis for this admission?: Yes (7) Anemia Qualifiers: Anemia type: other cause Other causes of anemia: acute posthemorrhagic Qualified Code(s): D62 - Acute posthemorrhagic anemia Is this a current diagnosis for this admission?: Yes Plan: Status post blood transfusion (8) Angiodysplasia of intestine with hemorrhage Is this a current diagnosis for this admission?: Yes (9) Acute hypoxemic respiratory failure Is this a current diagnosis for this admission?: Yes Plan: Continue noninvasive positive pressure ventilation, BiPAP - Time Time Spent with patient: 35 or more minutes Level of Care: IMCU - Inpatient Certification Based on my medical assessment, after consideration of the patient's williams rbidities, presenting symptoms, or acuity I expect that the services needed warrant INPATIENT care.: Yes I certify that my determination is in accordance with my understanding of Medicare's requirements for reasonable and necessary INPATIENT services [42 CFR 412.3e].: Yes
[2019-07-25] MEDS: ATORVASTATIN CALCIUM 80 MG TABLET PO SCH (21:14)
[2019-07-26] MEDS: CEFEPIME HCL 2 GM in DEXTROSE 5%-WATER 50 ML IV SCH ×2 (06:11→19:13)
[2019-07-26] MEDS: METOPROLOL TARTRATE 100 MG TABLET PO SCH ×2 (06:12→19:13)
[2019-07-26] MEDS: VALSARTAN 160 MG TABLET PO SCH (09:15)
[2019-07-26] MEDS: LEVOFLOXACIN 750 MG/D5W RTU 750 MG/150 ML RTUPB IV SCH (09:15)
[2019-07-26] MEDS: FENOFIBRATE NANOCRYSTALLIZED 145 MG TABLET PO SCH (09:16)
[2019-07-26] MEDS: AMLODIPINE BESYLATE 10 MG TABLET PO SCH (09:16)
[2019-07-26] MEDS: HYDROCHLOROTHIAZIDE 25 MG TABLET PO SCH (09:16)
[2019-07-26 09:35] LABS: HEMATOCRIT 31.6 % (36.0-47.0); HEMOGLOBIN 11.2 g/dL (12.0-15.5); MEAN CORPUSCULAR HEMOGLOBIN 26.6 pg (27.0-33.4); MEAN CORPUSCULAR HGB CONC 35.4 g/dL (32.0-36.0); MEAN CORPUSCULAR VOLUME 75 fl (80-97); PLATELET COUNT 403 10^3/uL (150-450); RED CELL DISTRIBUTION WIDTH 18.2 % (11.5-14.0); WHITE BLOOD COUNT 16.6 10^3/uL (4.0-10.5)
[2019-07-26 09:53] LABS: ALBUMIN 2.5 g/dL (3.5-5.0); ALKALINE PHOSPHATASE 85 U/L (38-126); ANION GAP 11 (5-19); ASPARTATE AMINO TRANSFERASE 59 U/L (14-36); BILIRUBIN,DIRECT 0.6 mg/dL (0.0-0.4); BILIRUBIN,TOTAL 1.2 mg/dL (0.2-1.3); BLOOD UREA NITROGEN 38 mg/dL (7-20); CALCIUM 9.7 mg/dL (8.4-10.2); CARBON DIOXIDE 23 mmol/L (22-30); CHLORIDE 97 mmol/L (98-107); GLUCOSE 146 mg/dL (75-110); POTASSIUM 4.2 mmol/L (3.6-5.0); TOTAL PROTEIN 5.5 g/dL (6.3-8.2)
[2019-07-26 10:07] LABS: ABSOLUTE LYMPHOCYTES# (MANUAL) 0.2 10^3/uL (0.5-4.7); ABSOLUTE MONOCYTES # (MANUAL) 0.3 10^3/uL (0.1-1.4); BAND NEUTROPHILS % (MANUAL) 2 % (3-5); BASOPHILS % (MANUAL) 0 % (0-2); EOSINOPHILS % (MANUAL) 0 % (0-6); LYMPHOCYTES % (MANUAL) 1 % (13-45); MONOCYTES % (MANUAL) 2 % (3-13); SEGMENTED NEUTROPHILS % (MAN) 95 % (42-78); TOTAL CELLS COUNTED 100
[2019-07-26 10:08] LABS: ANISOCYTOSIS 2+
[2019-07-26 10:09] LABS: OVALOCYTES SLIGHT; POIKILOCYTOSIS 2+; POLYCHROMASIA SLIGHT
[2019-07-26 10:10] LABS: TARGET CELLS 2+
[2019-07-26 10:11] LABS: PLATELET COMMENT ADEQUATE
[2019-07-26 10:13] LABS: HYPOCHROMASIA 1+
--- NOTE | 2019-07-26 14:58 | PDOC PROGRESS REPORT ---
Subjective Progress Note for:: 07/26/19 Subjective:: Patient seen by the bedside she was transfused with red blood cells because of anemia due to upper GI angiodysplasia from the use of combination of Xarelto and aspirin for atherosclerosis of aortic iliac arterial system associated with stenosis of the aortic iliac arterial system. 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 She is presently empirically on triple antibiotic, cefepime, Levaquin, vancomycin, no specific pathogen isolated from body fluids, Patient was initially admitted for the management of postobstructive pneumonia due to right lower lobe lung mass, she underwent a CT-guided needle biopsy that confirmed squamous cell carcinoma. She was seen remotely by oncologist the plan was for patient to follow with oncology after discharge but the pneumonia has been progressive since admission now involved the left lung. Consultation will be requested from infectious disease for guidance regarding antibiotic use especially because the treatment presently is empiric there is no organism isolated from body fluid or the sputum Reason For Visit: LARGE MASS IN RIGHT LOWER LOBE Physical Exam Vital Signs: Temp Pulse Resp BP Pulse Ox 99.2 F 94 40 H 143/61 H 93 07/26/19 12:04 07/26/19 14:00 07/26/19 12:25 07/26/19 12:04 07/26/19 12:25 Intake & Output 07/25/19 07/26/19 07/27/19 06:59 06:59 06:59 Intake Total 1693 1020 420 Balance 1693 1020 420 Weight 76.2 kg 76.3 kg General appearance: PRESENT: other - Patient patient on noninvasive positive pre ssure ventilation, BiPAP Eye exam: PRESENT: PERRLA Respiratory exam: PRESENT: clear to auscultation kenney Cardiovascular exam: PRESENT: +S1, +S2 GI/Abdominal exam: PRESENT: soft Neurological exam: PRESENT: alert Results Laboratory Results: 07/26/19 09:23 07/26/19 09:23 07/26/19 07/26/19 09:23 09:23 WBC 16.6 H RBC 4.20 Hgb 11.2 L Hct 31.6 L MCV 75 L MCH 26.6 L MCHC 35.4 RDW 18.2 H Plt Count 403 Seg Neutrophils % Not Reportable Sodium 130.8 L Potassium 4.2 Chloride 97 L Carbon Dioxide 23 Anion Gap 11 BUN 38 H Creatinine 1.58 H Est GFR ( Amer) 39 L Glucose 146 H Calcium 9.7 Total Bilirubin 1.2 AST 59 H Alkaline Phosphatase 85 Total Protein 5.5 L Albumin 2.5 L Impressions: Head MRI 07/17/19 00:00 IMPRESSION: 1. No acute intracranial hemorrhage, mass, or evidence of acute territorial infarct/ischemia. 2. Moderate chronic small vessel ischemic change. EVIDENCE OF ACUTE STROKE: NO. Lung Biopsy CT 07/17/19 11:00 IMPRESSION: Successful CT-guided biopsy of the cavitary mass in the right lower lobe as detailed above. Chest X-Ray 07/20/19 00:00 IMPRESSION: Rehydration versus progressing pneumonia or metastatic disease in the left upper lobe. Chest CT 07/23/19 00:00 IMPRESSION: 1. New multifocal areas of ground-glass attenuation in both lungs suspicious for infectious process. Commonly reported imaging features of Covid 19 pneumonia are present. Other processes such as influenza pneumonia and organizing pneumonia, as can be seen with drug toxicity and connective tissue disease, can cause a similar imaging pattern. 2. Cavitary pulmonary mass in the medial right lower lobe is unchanged from prior. Assessment & Plan - Diagnosis (1) Pneumonia Qualifiers: Pneumonia type: due to unspecified organism Laterality: right Lung location: lower lobe of lung Qualified Code(s): J18.9 - Pneumonia, unspecified organism Is this a current diagnosis for this admission?: Yes Plan: Continue present antibiotic coverage (2) Aorto-iliac atherosclerosis Is this a current diagnosis for this admission?: Yes Plan: The Xarelto, aspirin discontinued because of upper GI bleed (3) Chronic kidney disease (CKD), stage III (moderate) Is this a current diagnosis for this admission?: Yes (4) Metabolic encephalopathy Is this a current diagnosis for this admission?: Yes (5) Squamous cell carcinoma of right lung Is this a current diagnosis for this admission?: Yes (6) Delirium Is this a current diagnosis for this admission?: Yes (7) Anemia Qualifiers: Anemia type: other cause Other causes of anemia: acute posthemorrhagic Qualified Code(s): D62 - Acute posthemorrhagic anemia Is this a current diagnosis for this admission?: Yes (8) Angiodysplasia of intestine with hemorrhage Is this a current diagnosis for this admission?: Yes (9) Acute hypoxemic respiratory failure Is this a current diagnosis for this admission?: Yes Plan: Patient continues to require noninvasive positive pressure ventilation, BiPAP - Time Time Spent with patient: 25-34 minutes Level of Care: IMCU
[2019-07-26] MEDS: PRAMIPEXOLE DI-HCL 0.25 MG TABLET PO SCH (19:13)
[2019-07-26] MEDS: ATORVASTATIN CALCIUM 80 MG TABLET PO SCH (22:20)
--- NOTE | 2019-07-26 22:42 | RADIOLOGY REPORT (SQ) ---
EXAM DESCRIPTION: [facility]: XR CHEST 1 VIEW CLINICAL HISTORY: 74 years Female; pneumonia ; FINDINGS: Since 07/20/2019, there are persistent bilateral pulmonary infiltrates, throughout the left lung and in the right upper lobe. Distribution is similar to the CT on 07/23/2019. No pneumothorax or significant pleural effusion. Mediastinum is unremarkable for positioning. IMPRESSION: Bilateral infiltrates, similar to the CT on 07/23/2019
[2019-07-27] MEDS: CEFEPIME HCL 2 GM in DEXTROSE 5%-WATER 50 ML IV SCH (05:51)
[2019-07-27] MEDS: METOPROLOL TARTRATE 100 MG TABLET PO SCH ×2 (05:51→17:35)
[2019-07-27 06:52] LABS: HEMATOCRIT 28.7 % (36.0-47.0); HEMOGLOBIN 10.3 g/dL (12.0-15.5); MEAN CORPUSCULAR HEMOGLOBIN 26.7 pg (27.0-33.4); MEAN CORPUSCULAR HGB CONC 35.7 g/dL (32.0-36.0); MEAN CORPUSCULAR VOLUME 75 fl (80-97); PLATELET COUNT 403 10^3/uL (150-450); RED BLOOD COUNT 3.85 10^6/uL (3.72-5.28); RED CELL DISTRIBUTION WIDTH 18.1 % (11.5-14.0); WHITE BLOOD COUNT 22.4 10^3/uL (4.0-10.5)
[2019-07-27 07:11] LABS: ALBUMIN 2.3 g/dL (3.5-5.0); ALKALINE PHOSPHATASE 80 U/L (38-126); ANION GAP 10 (5-19); ASPARTATE AMINO TRANSFERASE 56 U/L (14-36); BILIRUBIN,DIRECT 0.9 mg/dL (0.0-0.4); BILIRUBIN,TOTAL 1.4 mg/dL (0.2-1.3); BLOOD UREA NITROGEN 41 mg/dL (7-20); CALCIUM 9.5 mg/dL (8.4-10.2); CARBON DIOXIDE 22 mmol/L (22-30); CHLORIDE 97 mmol/L (98-107); GLUCOSE 97 mg/dL (75-110); POTASSIUM 4.6 mmol/L (3.6-5.0)
[2019-07-27 07:22] LABS: ABSOLUTE LYMPHOCYTES# (MANUAL) 0.7 10^3/uL (0.5-4.7); ABSOLUTE MONOCYTES # (MANUAL) 1.6 10^3/uL (0.1-1.4); BASOPHILS % (MANUAL) 0 % (0-2); EOSINOPHILS % (MANUAL) 0 % (0-6); LYMPHOCYTES % (MANUAL) 3 % (13-45); MONOCYTES % (MANUAL) 7 % (3-13); SEGMENTED NEUTROPHILS % (MAN) 90 % (42-78); TOTAL CELLS COUNTED 100
[2019-07-27 07:23] LABS: ANISOCYTOSIS 2+; POIKILOCYTOSIS 1+
[2019-07-27 07:24] LABS: PLATELET COMMENT ADEQUATE
[2019-07-27] MEDS: LEVOFLOXACIN 750 MG/D5W RTU 750 MG/150 ML RTUPB IV SCH (07:39)
--- NOTE | 2019-07-27 08:23 | Progress Note ---
Provider Note Provider Note: [facility] ID Telephone Advice Consultation Chart reviewed. Patient is a 74-year-old woman admitted due to worsening shor tness of breath and altered mental status. Patient also presented UGIB due to angiodysplasia and therapy on Xarelto. Patient has a right lung mass that was biopsied and she was found with squamous cell carcinoma. She has had postobstructive pneumonia. She was started on cefepime and levofloxacin. Her mental status didn't initially improve. Vancomycin was then added as leukocytosis worsened. Blood cultures were negative and throat culture as well but she was unable to collect sputum for cultures. Leukocytosis is now improving but new CT scan showed more groundglass opacities in the left side and right upper lobe. SARS-CoV-2 was ruled out. Influenza test was negative as well. ID consulted for recommendations. Allergies: No Known Drug Allergies Allergy (Verified 07/21/16 14:53) sesonal allergy Allergy (Uncoded 07/20/16 12:46) Medications: Amlodipine/Valsartan/Hcthiazid [Exforge Hct 10-320-25 mg Tab] 1 tab PO DAILY 07/13/19 [History] Megestrol Acetate [Megace Marge 400 mg/10 ml Udcup] 600 mg PO QAM 07/13/19 [History] Metoprolol Tartrate [Lopressor 100 mg Tablet] 100 mg PO BID 07/13/19 [History] Pramipexole Di-HCl [Mirapex] 0.125 mg PO QPM 07/13/19 [History] Sertraline HCl 25 mg PO QAM 07/13/19 [History] Vital Signs: Temp Pulse Resp BP Pulse Ox 98.7 F 92 22 H 128/73 H 91 L 07/26/19 16:06 07/26/19 16:06 07/26/19 16:06 07/26/19 16:06 07/26/19 16:06 Intake & Output 07/25/19 07/26/19 07/27/19 06:59 06:59 06:59 Intake Total 1693 1020 1150 Balance 1693 1020 1150 Weight 76.2 kg 76.3 kg Weight/Height Weight 76.3 kg Height 5 ft 6 in Laboratories: 07/26/19 09:23 07/26/19 09:23 07/26/19 07/26/19 09:23 09:23 WBC 16.6 H RBC 4.20 Hgb 11.2 L Hct 31.6 L MCV 75 L MCH 26.6 L MCHC 35.4 RDW 18.2 H Plt Count 403 Seg Neutrophils % Not Reportable Sodium 130.8 L Potassium 4.2 Chloride 97 L Carbon Dioxide 23 Anion Gap 11 BUN 38 H Creatinine 1.58 H Est GFR ( Amer) 39 L Glucose 146 H Calcium 9.7 Total Bilirubin 1.2 AST 59 H Alkaline Phosphatase 85 Total Protein 5.5 L Albumin 2.5 L Microbiology: Blood culture 07/12 [facility] Urine culture 07/12 [facility] Throat Culture 07/22 [facility] Radiology: Head MRI 07/17/19 00:00 IMPRESSION: 1. No acute intracranial hemorrhage, mass, or evidence of acute territorial in farct/ischemia. 2. Moderate chronic small vessel ischemic change. EVIDENCE OF ACUTE STROKE: NO. Lung Biopsy CT 07/17/19 11:00 IMPRESSION: Successful CT-guided biopsy of the cavitary mass in the right lower lobe as detailed above. Chest X-Ray 07/20/19 00:00 IMPRESSION: Rehydration versus progressing pneumonia or metastatic disease in the left upper lobe. Chest CT 07/23/19 00:00 IMPRESSION: 1. New multifocal areas of ground-glass attenuation in both lungs suspicious for infectious process. Commonly reported imaging features of Covid 19 pneumonia are present. Other processes such as influenza pneumonia and organizing pneumonia, as can be seen with drug toxicity and connective tissue disease, can cause a similar imaging pattern. 2. Cavitary pulmonary mass in the medial right lower lobe is unchanged from mitch or. Assessment and Recommendations: Patient evaluated due to pneumonia in the setting of squamous cell carcinoma of the right lung. She has been on antibiotics but unable to collect sputum for cultures. There was some improvement after adding MRSA coverage, but she is not on anaerobic coverage. If she is not currently on any SSRI, linezolid would be an alternative to vancomycin and zosyn instead of cefepime and levaquin. This way will cover for MRSA, GNR and anaerobes with less risk of SOBIA. Duration of therapy will depend on clinical response, 7-10 days. Please call if questions. Cassandra Pretty MD [facility] ID [id number]
[2019-07-27] MEDS: RINGERS SOLUTION,LACTATED 1,000 ML IV PRN (08:30)
[2019-07-27] MEDS ORDERED: VANCOMYCIN HCL 0 MG in DEXTROSE 5%-WATER 250 ML IV NR (08:30)
[2019-07-27] MEDS: VALSARTAN 160 MG TABLET PO SCH (09:19)
[2019-07-27] MEDS: AMLODIPINE BESYLATE 10 MG TABLET PO SCH (09:19)
[2019-07-27] MEDS: HYDROCHLOROTHIAZIDE 25 MG TABLET PO SCH (09:19)
[2019-07-27] MEDS: FENOFIBRATE NANOCRYSTALLIZED 145 MG TABLET PO SCH (09:19)
[2019-07-27] MEDS: LINEZOLID 600 MG/300 ML RTUPB IV SCH ×2 (09:37→21:33)
[2019-07-27] MEDS ORDERED: ERTAPENEM SODIUM 1 GM in NORMAL SALINE 50 ML IV SCH (10:00)
[2019-07-27] MEDS: PIPERACILLIN SODIUM/TAZOBACTAM 3.375 GM in NORMAL SALINE 100 ML IV SCH ×2 (11:41→17:33)
--- NOTE | 2019-07-27 14:22 | Progress Note ---
Provider Note Provider Note: According to notes, patient has not improved significantly with antibiotics from her post-obstructive pneumonia due to squamous Cell carcinoma of the lung. In this situation, if patient and family agree, and if all other providers believe it is reasonable, we could try a dose of chemo (Carboplatin/pacltiaxel) to see if this will help the cancer. I had hoped to wait and see if she is a candidate for immunotherapy, or other targeted agent. However, this testing is usually not performed until after discharge due to reimbursement reasons. However, since her pneumonia appears to be worsening, then opening the airway may be the only thing that will help the situation. There is also an equal chance that the chemo may make the situation worse. I will try to discuss this with Dr. Ramos.
[2019-07-27] MEDS: PRAMIPEXOLE DI-HCL 0.25 MG TABLET PO SCH (17:35)
--- NOTE | 2019-07-27 20:15 | PDOC PROGRESS REPORT ---
Subjective Progress Note for:: 07/27/19 Subjective:: Patient seen by the bedside, she continues to require noninvasive positive pressure ventilation, BiPAP, I appreciate the ID notes and I have initiated the antibiotic recommended.She was noticed to be retaining urine by the RN, a Mirza catheter was inserted, over 300 cc of urine was collected.The chest x-ray that was done last night revealed diffuse left lung infiltrate with right upper lobe infiltrate Reason For Visit: LARGE MASS IN RIGHT LOWER LOBE Physical Exam Vital Signs: Temp Pulse Resp BP Pulse Ox 97.6 F 86 33 H 132/80 H 99 07/27/19 16:33 07/27/19 16:33 07/27/19 16:33 07/27/19 16:33 07/27/19 16:33 Intake & Output 07/26/19 07/27/19 07/28/19 06:59 06:59 06:59 Intake Total 1020 1250 650 Output Total 300 Balance 1020 1250 350 Weight 76.3 kg 75.4 kg General appearance: PRESENT: no acute distress Eye exam: PRESENT: PERRLA Respiratory exam: PRESENT: rhonchi Cardiovascular exam: PRESENT: +S1, +S2 GI/Abdominal exam: PRESENT: soft Neurological exam: PRESENT: alert Results Laboratory Results: 07/27/19 06:27 07/27/19 06:27 07/27/19 07/27/19 06:27 06:27 WBC 22.4 H RBC 3.85 Hgb 10.3 L Hct 28.7 L MCV 75 L MCH 26.7 L MCHC 35.7 RDW 18.1 H Plt Count 403 Seg Neutrophils % Not Reportable Sodium 128.8 L Potassium 4.6 Chloride 97 L Carbon Dioxide 22 Anion Gap 10 BUN 41 H Creatinine 1.61 H Est GFR ( Amer) 38 L Glucose 97 Calcium 9.5 Total Bilirubin 1.4 H AST 56 H Alkaline Phosphatase 80 Total Protein 5.0 L Albumin 2.3 L Impressions: Head MRI 07/17/19 00:00 IMPRESSION: 1. No acute intracranial hemorrhage, mass, or evidence of acute territorial infarct/ischemia. 2. Moderate chronic small vessel ischemic change. EVIDENCE OF ACUTE STROKE: NO. Lung Biopsy CT 07/17/19 11:00 IMPRESSION: Successful CT-guided biopsy of the cavitary mass in the right lower lobe as detailed above. Chest CT 07/23/19 00:00 IMPRESSION: 1. New multifocal areas of ground-glass attenuation in both lungs suspicious for infectious process. Commonly reported imaging features of Covid 19 pneumonia are present. Other processes such as influenza pneumonia and organizing pneumonia, as can be seen with drug toxicity and connective tissue disease, can cause a similar imaging pattern. 2. Cavitary pulmonary mass in the medial right lower lobe is unchanged from prior. Chest X-Ray 07/26/19 00:00 IMPRESSION: Bilateral infiltrates, similar to the CT on 07/23/2019 Assessment & Plan - Diagnosis (1) Pneumonia Qualifiers: Pneumonia type: due to unspecified organism Laterality: right Lung location: lower lobe of lung Qualified Code(s): J18.9 - Pneumonia, unspecified organism Is this a current diagnosis for this admission?: Yes Plan: She has left lung pneumonia, right upper lobe pneumonia, antibiotic change to Zosyn and linezolid this will cover all potential pathogens, ID consultation appreciated, the antibiotic recommended initiated (2) Aorto-iliac atherosclerosis Is this a current diagnosis for this admission?: Yes Plan: Continue atorvastatin (3) Chronic kidney disease (CKD), stage III (moderate) Is this a current diagnosis for this admission?: Yes Plan: Continue to follow (4) Metabolic encephalopathy Is this a current diagnosis for this admission?: Yes Plan: Patient is alert and oriented (5) Squamous cell carcinoma of right lung Is this a current diagnosis for this admission?: Yes Plan: According to oncology (6) Delirium Is this a current diagnosis for this admission?: Yes Plan: Resolved (7) Anemia Qualifiers: Anemia type: other cause Other causes of anemia: acute posthemorrhagic Qualified Code(s): D62 - Acute posthemorrhagic anemia Is this a current diagnosis for this admission?: Yes Plan: Status post blood transfusion (8) Angiodysplasia of intestine with hemorrhage Is this a current diagnosis for this admission?: Yes (9) Acute hypoxemic respiratory failure Is this a current diagnosis for this admission?: Yes Plan: Patient continued to require noninvasive positive pressure ventilation, BiPAP - Time Time Spent with patient: 35 or more minutes Level of Care: IMCU Smoking Cessation Education: over 10 minutes
[2019-07-27] MEDS: ATORVASTATIN CALCIUM 80 MG TABLET PO SCH (21:33)
[2019-07-28] MEDS: PIPERACILLIN SODIUM/TAZOBACTAM 3.375 GM in NORMAL SALINE 100 ML IV SCH ×4 (00:38→18:55)
[2019-07-28] MEDS: LINEZOLID 600 MG/300 ML RTUPB IV SCH ×2 (00:44→22:51)
[2019-07-28] MEDS: RINGERS SOLUTION,LACTATED 1,000 ML IV PRN (02:50)
[2019-07-28 04:40] LABS: CREATINE KINASE MB 2.08 ng/mL (<4.55); TROPONIN I 0.07 ng/mL
[2019-07-28] MEDS: METOPROLOL TARTRATE 100 MG TABLET PO SCH ×2 (05:40→18:52)
--- NOTE | 2019-07-28 07:35 | EKG REPORT ---
SEVERITY:- ABNORMAL ECG - SINUS TACHYCARDIA MULTIPLE ATRIAL PREMATURE COMPLEXES PROBABLE LEFT ATRIAL ABNORMALITY INFERIOR INJURY, PROBABLE EARLY ACUTE INFARCT CONSIDER POSTERIOR WALL INVOLVEMENT (called ER 7:34 to notify, repeatedly, no answer ) : Confirmed by: Liuz Lopez MD 28-Jul-2019 07:34:48
[2019-07-28 10:19] LABS: HEMATOCRIT 26.5 % (36.0-47.0); HEMOGLOBIN 9.3 g/dL (12.0-15.5); MEAN CORPUSCULAR HEMOGLOBIN 26.6 pg (27.0-33.4); MEAN CORPUSCULAR HGB CONC 35.1 g/dL (32.0-36.0); MEAN CORPUSCULAR VOLUME 76 fl (80-97); PLATELET COUNT 347 10^3/uL (150-450)
[2019-07-28 10:36] LABS: ALBUMIN 2.1 g/dL (3.5-5.0); ALKALINE PHOSPHATASE 77 U/L (38-126); ANION GAP 11 (5-19); ASPARTATE AMINO TRANSFERASE 75 U/L (14-36); BILIRUBIN,DIRECT 0.6 mg/dL (0.0-0.4); BLOOD UREA NITROGEN 40 mg/dL (7-20); CALCIUM 8.9 mg/dL (8.4-10.2); CARBON DIOXIDE 24 mmol/L (22-30); CHLORIDE 96 mmol/L (98-107); GLUCOSE 87 mg/dL (75-110); POTASSIUM 4.2 mmol/L (3.6-5.0); TOTAL PROTEIN 4.6 g/dL (6.3-8.2)
[2019-07-28 10:47] LABS: CREATINE KINASE MB 42.4 ng/mL (<4.55)
[2019-07-28 10:51] LABS: ABSOLUTE LYMPHOCYTES# (MANUAL) 0.3 10^3/uL (0.5-4.7); ABSOLUTE MONOCYTES # (MANUAL) 1.3 10^3/uL (0.1-1.4); BAND NEUTROPHILS % (MANUAL) 2 % (3-5); BASOPHILS % (MANUAL) 0 % (0-2); EOSINOPHILS % (MANUAL) 0 % (0-6); LYMPHOCYTES % (MANUAL) 1 % (13-45); MONOCYTES % (MANUAL) 5 % (3-13); NUCLEATED RED BLOOD CELLS 1 /100 WBC (0); SEGMENTED NEUTROPHILS % (MAN) 92 % (42-78); TOTAL CELLS COUNTED 100; TROPONIN I 2.4 ng/mL
[2019-07-28 10:53] LABS: ANISOCYTOSIS 1+; HYPOCHROMASIA 1+; POIKILOCYTOSIS 2+; POLYCHROMASIA SLIGHT
[2019-07-28 10:54] LABS: PLATELET CLUMPS PRESENT; PLATELET COMMENT ADEQUATE; SCHISTOCYTES SLIGHT
[2019-07-28 10:56] LABS: TEAR DROP CELLS SLIGHT
[2019-07-28 10:59] LABS: TARGET CELLS 3+
[2019-07-28] MEDS: VALSARTAN 160 MG TABLET PO SCH (11:53)
[2019-07-28] MEDS: FENOFIBRATE NANOCRYSTALLIZED 145 MG TABLET PO SCH (11:53)
[2019-07-28] MEDS: AMLODIPINE BESYLATE 10 MG TABLET PO SCH (11:54)
[2019-07-28] MEDS: HYDROCHLOROTHIAZIDE 25 MG TABLET PO SCH (11:54)
[2019-07-28] MEDS: NITROGLYCERIN 50 MG/D5W 250 ML IV PRN (13:39)
[2019-07-28] MEDS: ASPIRIN 300 MG SUPP, RECTAL PR SCH (15:48)
[2019-07-28 16:38] LABS: POTASSIUM 4.8 mmol/L (3.6-5.0)
[2019-07-28 16:51] LABS: CREATINE KINASE MB 66.5 ng/mL (<4.55); TROPONIN I 8.2 ng/mL
--- NOTE | 2019-07-28 17:24 | PDOC PROGRESS REPORT ---
Subjective Progress Note for:: 07/28/19 Subjective:: Patient is awake, on Bipap and appears comfortable. She is able to answer yes/no but cannot answer much more. She denies any pain. Nurses report that she has had a new CT and troponins have been elevated. She is now on Nitro drip. She has not been able to remain off Bipap for more than a few minutes without de-sat. Family has been given special permission to visit, but have not yet arrived. They were able to face-time with patient earlier today. Reason For Visit: LARGE MASS IN RIGHT LOWER LOBE Physical Exam Vital Signs: Temp Pulse Resp BP Pulse Ox 97.4 F 75 25 H 125/71 99 07/28/19 12:35 07/28/19 14:15 07/28/19 16:21 07/28/19 14:15 07/28/19 16:21 Intake & Output 07/27/19 07/28/19 07/29/19 06:59 06:59 06:59 Intake Total 1250 2050 100 Output Total 800 Balance 1250 1250 100 Weight 75.4 kg 75.4 kg General appearance: PRESENT: no acute distress, well-developed, well-nourished Head exam: PRESENT: normocephalic Eye exam: PRESENT: PERRLA Respiratory exam: PRESENT: unlabored Cardiovascular exam: PRESENT: RRR Neurological exam: PRESENT: alert, awake Psychiatric exam: PRESENT: appropriate affect Skin exam: PRESENT: normal color Results Laboratory Results: 07/28/19 09:33 07/28/19 16:00 07/28/19 07/28/19 07/28/19 09:33 09:33 16:00 WBC 25.0 H RBC 3.50 L Hgb 9.3 L Hct 26.5 L MCV 76 L MCH 26.6 L MCHC 35.1 RDW 18.0 H Plt Count 347 Seg Neutrophils % Not Reportable Sodium 130.5 L Potassium 4.2 4.8 Chloride 96 L Carbon Dioxide 24 Anion Gap 11 BUN 40 H Creatinine 1.75 H Est GFR ( Amer) 34 L Glucose 87 Calcium 8.9 Magnesium 2.2 Total Bilirubin 1.0 AST 75 H Alkaline Phosphatase 77 Total Protein 4.6 L Albumin 2.1 L 07/28/19 07/28/19 07/28/19 04:02 04:02 09:33 Creatine Kinase 21 L 177 H CK-MB (CK-2) 2.08 Troponin I 0.070 07/28/19 07/28/19 07/28/19 09:33 16:00 16:00 Creatine Kinase 327 H CK-MB (CK-2) 42.40 H 66.50 H Troponin I 2.400 8.200 Impressions: Head MRI 07/17/19 00:00 IMPRESSION: 1. No acute intracranial hemorrhage, mass, or evidence of acute territorial infarct/ischemia. 2. Moderate chronic small vessel ischemic change. EVIDENCE OF ACUTE STROKE: NO. Lung Biopsy CT 07/17/19 11:00 IMPRESSION: Successful CT-guided biopsy of the cavitary mass in the right lower lobe as detailed above. Chest CT 07/23/19 00:00 IMPRESSION: 1. New multifocal areas of ground-glass attenuation in both lungs suspicious for infectious process. Commonly reported imaging features of Covid 19 pneumonia are present. Other processes such as influenza pneumonia and organizing pne umonia, as can be seen with drug toxicity and connective tissue disease, can cause a similar imaging pattern. 2. Cavitary pulmonary mass in the medial right lower lobe is unchanged from prior. Chest X-Ray 07/26/19 00:00 IMPRESSION: Bilateral infiltrates, similar to the CT on 07/23/2019 Assessment & Plan - Diagnosis (1) Hyponatremia Is this a current diagnosis for this admission?: Yes Plan: Her sodium has been stable over the last few days. She is currently NPO. (2) Chronic kidney disease (CKD), stage III (moderate) Is this a current diagnosis for this admission?: Yes Plan: Her Cr is slowly increasing again. (3) Squamous cell carcinoma of right lung Is this a current diagnosis for this admission?: Yes Plan: This does not appear to be operable. In order to fully stage and treat this, I would prefer to have PET as well as further tumor markers to aid in treatment. However, these cannot be obtained until she has been discharged from the hospital. Another option would be to give 1 dose of carboplatin/paclitaxel to see if this helps to shrink the tumor enough to open up the airway and help to clear the post-obstructive pneumonia. (4) Chest pain Qualifiers: Chest pain type: unspecified Qualified Code(s): R07.9 - Chest pain, u nspecified Is this a current diagnosis for this admission?: Yes Plan: With evidence of acute CT with elevated troponins and EKG changes. Dr. Slaughter is currently treating. - Time Time Spent with patient: 35 or more minutes - Plan Summary Plan Summary: I was able to have conference call with patients family and Dr. Ramos. All questions were answered to the best of my ability. We also discussed radiation therapy. However, again with all comorbidities, I am, not sure that this will be possible but I will discuss with Dr. Mackay. They want to explore all options. I have left a message for Dr. Mackay, but it is after pm on Wednesday, so he may not be available until Wednesday.
[2019-07-28] MEDS: PRAMIPEXOLE DI-HCL 0.25 MG TABLET PO SCH (18:52)
--- NOTE | 2019-07-28 19:01 | PDOC CONSULTATION ---
Consultation-Blank Consultation: CARDIOLOGY CONSULTATION BY Dr. Sandi Monge on 07/28/2019. Patient seen at 1 PM. 60 minutes spent as patient more than 50% of time spent in direct patient care. REASON FOR CONSULTATION: Acute myocardial infarction. CONSULT REQUESTING PHYSICIAN: Dr. Alfredo. HISTORY OF PRESENT ILLNESS: Patient unable to give a good history she is on BiPAP. But does answer some questions. Importantly she denies any chest pain or discomfort. She is wearing a BiPAP. As per records the patient was admitted with postobstructive pneumonia and respiratory failure. A biopsy showed that the patient has cancer of the lung. The right lower lobe has a large mass. Also the patient's CAT scan showed a atrophic right kidney and a hypertrophied left kidney, with the patient is GFR showing that the patient is chronic kidney disease stage III. The patient is a frail build. And appears to be chronically ill. At present the patient denies any chest pain or discomfort. There is some shortness of breath but this is much improved with the patient being on BiPAP. Earlier this morning the patient had hypoxemia with O2 saturation of 84%. The patient is EKG obtained this morning shows ST segment elevation in the inferior leads and septal leads. Subsequent EKG done after the patient was started on IV nitroglycerin drip by me showed the ST depression did normalize and there being regular evolutionary changes in the inferior wall. The patient does have a history of prior myocardial infarction. There is no arrhythmia seen on the monitor. At present the patient's oxygen saturation is good on current BiPAP and oxygen.. Past Medical History Cardiac Medical History: Reports: Myocardial Infarction - 2000, Hyperlipidema, Hypertension Pulmonary Medical History: Reports: Pneumonia - As a child Endocrine Medical History: Reports: Diabetes Mellitus Type 2 Musculoskeltal Medical History: Reports: Arthritis - Everywhere Hematology: Reports: Anemia Past Surgical History Past Surgical History: Reports: Appendectomy, Cardiac Catheterization - w/stent, Cholecystectomy Social History Smoking Status: Current Every Day Smoker Frequency of Alcohol Use: None Hx Recreational Drug Use: No Drugs: None Hx Prescription Drug Abuse: No Family History Family History: Reviewed & Not Pertinent Parental Family History Reviewed: Yes Children Family History Reviewed: Yes Sibling(s) Family History Reviewed.: Yes Medication/Allergy Home Medications: RX: Clopidogrel Bisulfate [Clopidogrel] 75 mg PO QAM 05/11/16 RX: Fenofibrate Nanocrystallized [Tricor 145 mg Tablet] 145 mg PO QAM 05/11/16 RX: Losartan Potassium [Cozaar 50 mg Tablet] 50 mg PO QAM 05/11/16 Amlodipine/Valsartan/Hcthiazid [Exforge Hct 10-320-25 mg Tab] 1 tab PO DAILY 07/13/19 Megestrol Acetate [Megace Marge 400 mg/10 ml Udcup] 600 mg PO QAM 07/13/19 Metoprolol Tartrate [Lopressor 100 mg Tablet] 100 mg PO BID 07/13/19 Pramipexole Di-HCl [Mirapex] 0.125 mg PO QPM 07/13/19 RX: Sertraline HCl 25 mg PO QAM 07/13/19 Allergies/Adverse Reactions: No Known Drug Allergies Allergy (Verified 07/21/16 14:53) sesonal allergy Allergy (Uncoded 07/20/16 12:46) RESUSCITATION STATUS: The patient is a DNR. The patient daughter is a surrogate healthcare decision maker as also the patient's son. Review of Systems not obtainable due to patient not being able to give a good history she vehemently denies any chest pain or discomfort. There is no palpitations no arrhythmia seen. The patient is on BiPAP. No other review of symptoms is possible at present. CURRENT MEDICATIONS: This is been reviewed by me. I have started the patient on nitroglycerin drip. The patient is not taking by mouth orally and hence is not getting her prescribed dose of Lopressor. In view of the patient not being able to take orally will give the patient aspirin 300 mg rectal suppository. Current Medications Generic Name Dose Route Start Last Admin Trade Name Freq PRN Reason Stop Dose Admin Albuterol/Ipratropium 3 ml 07/24/19 16:19 Duoneb 3 Ml Ampul NEB 08/23/19 16:18 [id number] PRN FOR SHORTNESS OF BREATH Amlodipine Besylate 10 mg 07/14/19 10:00 07/28/19 11:54 Norvasc 10 Mg Tablet PO 08/13/19 09:59 Not Given DAILY [place] Aspirin 300 mg 07/28/19 13:00 07/28/19 15:48 Aspirin 300 Mg Rectal Supp ME 08/27/19 12:59 300 mg DAILY [place] Administration Atorvastatin Calcium 80 mg 07/14/19 22:00 07/28/19 22:51 Lipitor 80 Mg Tablet PO 08/13/19 21:59 80 mg QHS [place] Administration Fenofibrate 145 mg 07/14/19 08:00 07/28/19 11:53 Tricor 145 Mg Tablet PO 08/13/19 07:59 Not Given QAM [place] Hydrochlorothiazide 25 mg 07/14/19 10:00 07/28/19 11:54 Hydrodiuril 25 Mg Tablet PO 08/13/19 09:59 Not Given DAILY [place] Lactated Ringer's 1,000 mls @ 70 mls/hr 07/27/19 08:13 07/28/19 02:50 Lactated Ringers 1000 Ml Iv Soln IV 08/26/19 08:12 70 mls/hr CONTINUOUS PRN Administration THIS MED IS NOT "PRN" Piperacillin Sod/Tazobactam 100 mls @ 200 mls/hr 07/27/19 12:00 07/28/19 18:55 Sod 3.375 gm/ Sodium Chloride IV 08/03/19 11:59 200 mls/hr Q6 [place] 200 mls/hr Administration Linezolid 600 mg in 300 mls @ 300 mls/hr 07/27/19 10:00 07/28/19 22:51 Zyvox Rtu 600 Mg/300 Ml Premixed IV 08/03/19 09:59 300 mls/hr Q12 [place] 300 mls/hr Administration Nitroglycerin/Dextrose 50 mg in 250 mls @ 0 mls/hr 07/28/19 12:09 07/28/19 13:39 Ntg Rtu 50 Mg/D5w 250 Ml Iv Premix Bottle IV 08/27/19 12:08 1.5 ml/hr CONTINUOUS PRN 1.5 mls/hr THIS MED IS NOT "PRN" Administration Protocol Titrate Metoprolol Tartrate 100 mg 07/13/19 20:00 07/28/19 18:52 Lopressor 100 Mg Tablet PO 08/12/19 19:59 Not Given Q12A [place] Pramipexole Dihydrochloride 0.125 mg 07/13/19 20:00 07/28/19 18:52 Mirapex 0.25 Mg Tablet PO 08/12/19 19:59 Not Given QPM [facility] Valsartan 320 mg 07/14/19 10:00 07/28/19 11:53 Diovan 160 Mg Tablet PO 08/13/19 09:59 Not Given DAILY [place] Discontinued Medications Generic Name Dose Route Start Last Admin Trade Name Momo PRN Reason Stop Dose Admin Amlodipine Besylate 10 mg 07/14/19 10:00 Norvasc 10 Mg Tablet PO 08/13/19 09:59 DAILY [place] Amlodipine Besylate 10 mg 07/13/19 21:00 07/13/19 22:14 Norvasc 10 Mg Tablet PO 07/13/19 21:01 10 mg NOW ONE Administration Aspirin 81 mg 07/17/19 22:00 07/22/19 21:45 Aspirin 81 Mg Chewable Tablet PO 08/16/19 21:59 81 mg QHS [place] Administration Fentanyl Citrate Confirm 07/17/19 10:46 07/17/19 14:50 Sublimaze Inj/Pf 100 Mcg/2 Ml Ampule Administered 07/17/19 10:47 Not Given Dose 100 mcg .ROUTE .STK-MED ONE Furosemide 40 mg 07/24/19 13:45 07/24/19 13:45 Lasix Inj/Pf 40 Mg/4 Ml Sdv IV 07/24/19 13:46 40 mg NOW ONE Administration Hydrochlorothiazide 25 mg 07/13/19 20:45 07/13/19 22:15 Hydrodiuril 25 Mg Tablet PO 07/13/19 20:46 25 mg NOW ONE Administration Levofloxacin/Dextrose 750 mg in 150 mls @ 100 mls/hr 07/15/19 10:00 07/17/19 09:53 Levaquin Rtu 750 Mg/D5w 150 Ml Premix IV 07/22/19 09:59 150 mls/hr Q2DAYS [place] 150 mls/hr Administration Cefepime HCl 2 gm/ Dextrose 50 mls @ 100 mls/hr 07/13/19 22:00 07/20/19 12:13 IV 07/20/19 21:59 100 mls/hr Q12 [place] 100 mls/hr Administration Sodium Chloride 1,000 mls @ 100 mls/hr 07/13/19 10:16 07/19/19 19:47 Nacl 0.9% 1000 Ml Iv Soln IV 08/12/19 10:15 125 mls/hr CONTINUOUS PRN Administration THIS MED IS NOT "PRN" Levofloxacin/Dextrose 750 mg in 150 mls @ 100 mls/hr 07/13/19 11:30 07/13/19 19:00 Levaquin Rtu 750 Mg/D5w 150 Ml Premix IV 07/13/19 12:59 Infused NOW ONE Infusion Cefepime HCl 2 gm/ Dextrose 50 mls @ 100 mls/hr 07/13/19 13:00 07/13/19 19:00 IV 07/13/19 13:29 Infused NOW ONE Infusion Vancomycin HCl 1,250 mg/ 250 mls @ 166.667 mls/hr 07/19/19 19:00 07/25/19 19:42 Dextrose IV 07/26/19 18:59 Infused QPM [place] Infusion Sodium Chloride 1,000 mls @ 30 mls/hr 07/20/19 19:17 07/23/19 17:23 Nacl 0.9% 1000 Ml Iv Soln IV 08/12/19 10:15 Infused CONTINUOUS PRN Infusion THIS MED IS NOT "PRN" Sodium Chloride 1,000 mls @ 100 mls/hr 07/23/19 14:42 07/24/19 13:57 Nacl 0.9% 1000 Ml Iv Soln IV 08/12/19 10:15 Infused CONTINUOUS PRN Infusion THIS MED IS NOT "PRN" Cefepime HCl 2 gm in 50 mls @ 100 mls/hr 07/24/19 06:00 07/24/19 07:19 Maxipime Rtu 2 Gm-D5w 50 Ml Premix Bag IV 07/31/19 05:59 Infused Q12A [place] Infusion Levofloxacin/Dextrose 750 mg in 150 mls @ 100 mls/hr 07/24/19 18:00 Levaquin Rtu 750 Mg/D5w 150 Ml Premix IV 07/31/19 17:59 QPM [place] Cefepime HCl 2 gm/ Dextrose 50 mls @ 100 mls/hr 07/24/19 18:00 07/27/19 06:21 IV 07/31/19 05:59 Infused Q12A [place] Infusion Levofloxacin/Dextrose 750 mg in 150 mls @ 100 mls/hr 07/24/19 08:00 07/27/19 09:20 Levaquin Rtu 750 Mg/D5w 150 Ml Premix IV 07/31/19 07:59 Infused QAM [place] Infusion Sodium Chloride 250 mls @ 30 mls/hr 07/24/19 20:46 Nacl 0.9% 250 Ml Iv Soln IV 07/25/19 20:45 .DURING TRANSFUSION PRN THIS MED IS NOT "PRN" Sodium Chloride 250 mls @ 0 mls/hr 07/24/19 20:46 Nacl 0.9% 250 Ml Iv Soln IV 07/25/19 20:45 CONTINUOUS PRN AFTER EACH UNIT As Directed Ertapenem 1 gm/ Sodium 50 mls @ 100 mls/hr 07/27/19 10:00 Chloride IV 08/03/19 09:59 DAILY [place] Vancomycin HCl / Dextrose 250 mls @ 0 mls/hr 07/27/19 08:30 IV 08/03/19 08:29 .PHARMACY TO DOSE NR As Directed Levofloxacin 750 mg 07/19/19 10:00 07/21/19 09:20 Levaquin 750 Mg Tablet PO 07/22/19 09:59 750 mg Q2DAYS [place] Administration Lorazepam 1 mg 07/13/19 22:00 07/17/19 21:09 Ativan 1 Mg Tablet PO 07/20/19 21:59 1 mg QHS [place] Administration Megestrol Acetate 600 mg 07/14/19 08:00 07/18/19 08:39 Megace Marge 400 Mg/10 Ml Udcup PO 08/13/19 07:59 600 mg QAM [place] Administration Midazolam HCl Confirm 07/17/19 10:46 07/17/19 14:50 Versed 2 Mg/2 Ml Inj Administered 07/17/19 10:47 Not Given Dose 2 mg .ROUTE .STK-MED ONE Phytonadione 10 mg 07/14/19 09:00 07/14/19 10:27 Aqua-Mephyton Inj 10 Mg/1 Ml Ampule SUBCUT 07/14/19 09:01 10 mg NOW ONE Administration Rivaroxaban 2.5 mg 07/18/19 10:00 07/23/19 17:16 Xarelto 10 Mg Tablet PO 08/17/19 09:59 2.5 mg BID [place] Administration Sertraline HCl 25 mg 07/13/19 20:00 07/18/19 08:39 Zoloft 50 Mg Tablet PO 08/12/19 19:59 25 mg QAM [place] Administration Valsartan 320 mg 07/13/19 20:00 Diovan 160 Mg Tablet PO 08/12/19 19:59 DAILY [place] Valsartan 320 mg 07/13/19 21:00 07/13/19 22:15 Diovan 160 Mg Tablet PO 07/13/19 21:01 320 mg NOW ONE Administration PHYSICAL EXAMINATION: The patient is a frail build and appears to be chronically ill and malnourished. Selected Entries 07/28/19 07/28/19 12:35 13:37 Temperature 97.4 F Temperature Axillary Source Pulse Rate 80 78 Respiratory 37 H Rate Blood Pressure 112/66 127/65 H Blood Pressure 81 85 Mean O2 Sat by Pulse 100 100 Oximetry Oxygen Delivery Bipap Method Percent of 80 Oxygen HEAD: Is atraumatic normocephalic. EYES: Pupils equal round regular reactive to light and accommodation. There is mild conjunctival pallor. There is no scleral icterus. ENT is negative the patient is on BiPAP. NECK: Supple. There is no JVD. Carotids are equal there is no bruits. There is no lymphadenopath y. There is no goiter. THERE is no accessory muscles of respiration use. Trachea central. LUNGS: Shows decreased breath sounds and dry crackles in the right base. There is a few scattered rhonchi bilaterally. There is no wheezing. HEART: S1-S2 is heard. There is no S3 gallop. There is no S4 gallop. There is systolic murmur in the left sternal border and the apex there is no cardiac rub. ABDOMEN: Soft. Nontender. There is no hepatosplenomegaly. Bowel sounds are well heard. EXTREMITIES: Femorals are diminished. There is no femoral bruits. Leg pulses are diminished. There is no pedal edema. There is no DVT or cellulitis. There is no pedal edema. There is no cyanosis or clubbing. 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 She moves all 4 extremities. PSYCHIATRIC:. The patient does not appear to be appear to be agitated or anxious. Chest X-Ray 07/17/19 00:00 IMPRESSION: 1. No postprocedural pneumothorax. 2. New parenchymal opacity in the left upper lobe - correlate with clinical findings to exclude a pneumonia. Chest X-Ray 07/17/19 00:00 IMPRESSION: No postprocedural pneumothorax. Head MRI 07/17/19 00:00 IMPRESSION: 1. No acute intracranial hemorrhage, mass, or evidence of acute territorial infarct/ischemia. 2. Moderate chronic small vessel ischemic change. EVIDENCE OF ACUTE STROKE: NO. Lung Biopsy CT 07/17/19 11:00 IMPRESSION: Successful CT-guided biopsy of the cavitary mass in the right lower lobe as detailed above. Chest X-Ray 07/20/19 00:00 IMPRESSION: Rehydration versus progressing pneumonia or metastatic disease in the left upper lobe. Chest CT 07/23/19 00:00 IMPRESSION: 1. New multifocal areas of ground-glass attenuation in both lungs suspicious for infectious process. Commonly reported imaging features of Covid 19 pneumonia are present. Other processes such as influenza pneumonia and organizing pneumonia, as can be seen with drug toxicity and connective tissue disease, can cause a similar imaging pattern. 2. Cavitary pulmonary mass in the medial right lower lobe is unchanged from prior. Chest X-Ray 07/26/19 00:00 IMPRESSION: Bilateral infiltrates, similar to the CT on 07/23/2019 Labs- Entire Visit 07/13/19 07/13/19 07/13/19 10:47 10:47 10:47 WBC 13.6 H RBC 4.48 Hgb 11.9 L Hct 33.3 L MCV 74 L MCH 26.5 L MCHC 35.6 RDW 19.6 H Plt Count 365 Lymph % (Auto) 11.8 L Grady % (Auto) 8.5 Eos % (Auto) 2.1 Baso % (Auto) 0.5 Reticulocyte # Absolute Neuts (auto) 10.5 H Absolute Lymphs (auto) 1.6 Absolute Monos (auto) 1.2 Absolute Eos (auto) 0.3 Absolute Basos (auto) 0.1 Total Counted Seg Neutrophils % 77.1 Seg Neuts % (Manual) Band Neutrophils % Lymphocytes % (Manual) Monocytes % (Manual) Eosinophils % (Manual) Basophils % (Manual) Abs Neuts (Manual) Abs Lymphs (Manual) Abs Monocytes (Manual) Absolute Eos (Manual) Abs Basophils (Manual) Nucleated RBCs Hypersegmented Neuts Toxic Vacuolation PRESENT Clumped Platelets Platelet Comment ADEQUATE Polychromasia SLIGHT Hypochromasia Poikilocytosis 1+ Anisocytosis 2+ Microcytosis 1+ Target Cells 1+ Tear Drop Cells Ovalocytes [place] Cells Schistocytes Retic Count (auto) PT INR APTT 34.5 Sodium 135.2 L Potassium 4.4 Chloride 102 Carbon Dioxide 21 L Anion Gap 12 BUN 19 Creatinine 1.36 H Est GFR ( Amer) 46 L Est GFR (MDRD) Non-Af 38 L Glucose 90 POC Glucose Calcium 9.7 Magnesium Iron TIBC % Saturation Ferritin Total Bilirubin 0.6 Direct Bilirubin 0.2 Neonat Total Bilirubin Not Reportable Neonat Direct Bilirubin Not Reportable Neonat Indirect Bili Not Reportable AST 26 ALT 13 Alkaline Phosphatase 70 Creatine Kinase CK-MB (CK-2) Troponin I Total Protein 7.9 Albumin 3.9 Vitamin B12 Folate Urine Color Urine Appearance Urine pH Ur Specific [place] Urine Protein Urine Glucose (UA) Urine Ketones Urine Blood Urine Nitrite Urine Bilirubin Urine Urobilinogen Ur Leukocyte Esterase Urine WBC (Auto) Urine RBC (Auto) Squamous Epi Cells Auto Urine Mucus (Auto) Urine Ascorbic Acid Stool Occult Blood Time Trough Drawn Vancomycin Trough COVID-19 Source COVID-19 ([facility]) Influenza A (Rapid) Influenza B (Rapid) SARS-CoV-2 (PCR) Group A Strep Rapid Blood Type Antibody Screen Crossmatch 07/13/19 07/13/19 07/14/19 20:56 21:05 20:22 WBC 11.4 H RBC 4.22 Hgb 11.1 L Hct 31.0 L MCV 74 L MCH 26.3 L MCHC 35.8 RDW 20.0 H Plt Count 339 Lymph % (Auto) 11.4 L [place] % (Auto) 7.8 Eos % (Auto) 1.3 Baso % (Auto) 0.4 Reticulocyte # Absolute Neuts (auto) 9.1 H Absolute Lymphs (auto) 1.3 Absolute Monos (auto) 0.9 Absolute Eos (auto) 0.1 Absolute Basos (auto) 0.0 Total Counted Seg Neutrophils % 79.1 H Seg Neuts % (Manual) Band Neutrophils % Lymphocytes % (Manual) Monocytes % (Manual) Eosinophils % (Manual) Basophils % (Manual) Abs Neuts (Manual) Abs Lymphs (Manual) Abs Monocytes (Manual) Absolute Eos (Manual) Abs Basophils (Manual) Nucleated RBCs Hypersegmented Neuts Toxic Vacuolation PRESENT Clumped Platelets Platelet Comment ADEQUATE Polychromasia Hypochromasia Poikilocytosis 1+ Anisocytosis 2+ Microcytosis 1+ Target Cells 1+ Tear Drop Cells SLIGHT Ovalocytes SLIGHT [place] Cells Schistocytes Retic Count (auto) PT 16.5 H INR 1.32 APTT 46.9 H Sodium Potassium Chloride Carbon Dioxide Anion Gap BUN Creatinine Est GFR ( Amer) Est GFR (MDRD) Non-Af Glucose POC Glucose Calcium Magnesium Iron TIBC % Saturation Ferritin Total Bilirubin Direct Bilirubin Neonat Total Bilirubin Neonat Direct Bilirubin Neonat Indirect Bili AST ALT Alkaline Phosphatase Creatine Kinase CK-MB (CK-2) Troponin I Total Protein Albumin Vitamin B12 Folate Urine Color STRAW Urine Appearance CLEAR Urine pH 6.0 Ur Specific [place] 1.006 Urine Protein 100 H Urine Glucose (UA) NEGATIVE Urine Ketones NEGATIVE Urine Blood SMALL H Urine Nitrite NEGATIVE Urine Bilirubin NEGATIVE Urine Urobilinogen NEGATIVE Ur Leukocyte Esterase NEGATIVE Urine WBC (Auto) 1 Urine RBC (Auto) 3 Squamous Epi Cells Auto <1 Urine Mucus (Auto) RARE Urine Ascorbic Acid NEGATIVE Stool Occult Blood Time Trough Drawn Vancomycin Trough COVID-19 Source COVID-19 ([facility]) Influenza A (Rapid) Influenza B (Rapid) SARS-CoV-2 (PCR) Group A Strep Rapid Blood Type Antibody Screen Crossmatch 07/14/19 07/16/19 07/16/19 20:22 16:15 16:15 WBC 14.5 H RBC 4.46 Hgb 11.8 L Hct 32.8 L MCV 74 L MCH 26.5 L MCHC 36.1 H RDW 19.4 H Plt Count 316 Lymph % (Auto) 7.9 L [place] % (Auto) 7.7 Eos % (Auto) 0.7 Baso % (Auto) 0.6 Reticulocyte # Absolute Neuts (auto) 12.0 H Absolute Lymphs (auto) 1.1 Absolute Monos (auto) 1.1 Absolute Eos (auto) 0.1 Absolute Basos (auto) 0.1 Total Counted Seg Neutrophils % 83.1 H Seg Neuts % (Manual) Band Neutrophils % Lymphocytes % (Manual) Monocytes % (Manual) Eosinophils % (Manual) Basophils % (Manual) Abs Neuts (Manual) Abs Lymphs (Manual) Abs Monocytes (Manual) Absolute Eos (Manual) Abs Basophils (Manual) Nucleated RBCs Hypersegmented Neuts Toxic Vacuolation Clumped Platelets Platelet Comment Polychromasia Hypochromasia Poikilocytosis Anisocytosis Microcytosis Target Cells Tear Drop Cells Ovalocytes [place] Cells Schistocytes Retic Count (auto) PT INR APTT Sodium 130.0 L 129.5 L Potassium 4.1 4.2 Chloride 98 98 Carbon Dioxide 21 L 22 Anion Gap 11 10 BUN 22 H 18 Creatinine 1.24 1.25 Est GFR ( Amer) 51 L 51 L Est GFR (MDRD) Non-Af 42 L 42 L Glucose 115 H 99 POC Glucose Calcium 9.7 10.1 Magnesium 1.7 Iron TIBC % Saturation Ferritin Total Bilirubin 0.6 0.9 Direct Bilirubin 0.1 0.3 Neonat Total Bilirubin Not Reportable Not Reportable Neonat Direct Bilirubin Not Reportable Not Reportable Neonat Indirect Bili Not Reportable Not Reportable AST 21 28 ALT 11 12 Alkaline Phosphatase 59 67 Creatine Kinase CK-MB (CK-2) Troponin I Total Protein 6.3 7.3 Albumin 3.1 L 3.5 Vitamin B12 Folate Urine Color Urine Appearance Urine pH Ur Specific [place] Urine Protein Urine Glucose (UA) Urine Ketones Urine Blood Urine Nitrite Urine Bilirubin Urine Urobilinogen Ur Leukocyte Esterase Urine WBC (Auto) Urine RBC (Auto) Squamous Epi Cells Auto Urine Mucus (Auto) Urine Ascorbic Acid Stool Occult Blood Time Trough Drawn Vancomycin Trough COVID-19 Source COVID-19 ([facility]) Influenza A (Rapid) Influenza B (Rapid) SARS-CoV-2 (PCR) Group A Strep Rapid Blood Type Antibody Screen Crossmatch 07/16/19 07/17/19 07/18/19 19:44 08:38 11:23 WBC RBC Hgb Hct MCV MCH MCHC RDW Plt Count Lymph % (Auto) [place] % (Auto) Eos % (Auto) Baso % (Auto) Reticulocyte # Absolute Neuts (auto) Absolute Lymphs (auto) Absolute Monos (auto) Absolute Eos (auto) Absolute Basos (auto) Total Counted Seg Neutrophils % Seg Neuts % (Manual) Band Neutrophils % Lymphocytes % (Manual) Monocytes % (Manual) Eosinophils % (Manual) Basophils % (Manual) Abs Neuts (Manual) Abs Lymphs (Manual) Abs Monocytes (Manual) Absolute Eos (Manual) Abs Basophils (Manual) Nucleated RBCs Hypersegmented Neuts Toxic Vacuolation Clumped Platelets Platelet Comment Polychromasia Hypochromasia Poikilocytosis Anisocytosis Microcytosis Target Cells Tear Drop Cells Ovalocytes [place] Cells Schistocytes Retic Count (auto) PT 15.9 H INR 1.26 APTT 45.4 H 44.2 H Sodium 127.9 L Potassium 3.8 Chloride 97 L Carbon Dioxide 18 L Anion Gap 13 BUN 19 Creatinine 1.16 Est GFR ( Amer) 55 L Est GFR (MDRD) Non-Af 46 L Glucose 94 POC Glucose Calcium 10.1 Magnesium Iron TIBC % Saturation Ferritin Total Bilirubin Direct Bilirubin Neonat Total Bilirubin Neonat Direct Bilirubin Neonat Indirect Bili AST ALT Alkaline Phosphatase Creatine Kinase CK-MB (CK-2) Troponin I Total Protein Albumin Vitamin B12 Folate Urine Color Urine Appearance Urine pH Ur Specific [place] Urine Protein Urine Glucose (UA) Urine Ketones Urine Blood Urine Nitrite Urine Bilirubin Urine Urobilinogen Ur Leukocyte Esterase Urine WBC (Auto) Urine RBC (Auto) Squamous Epi Cells Auto Urine Mucus (Auto) Urine Ascorbic Acid Stool Occult Blood Time Trough Drawn Vancomycin Trough COVID-19 Source COVID-19 ([facility]) Influenza A (Rapid) Influenza B (Rapid) SARS-CoV-2 (PCR) Group A Strep Rapid Blood Type Antibody Screen Crossmatch 07/18/19 07/19/19 07/19/19 11:23 08:33 08:33 WBC 15.3 H 19.0 H RBC 4.38 4.25 Hgb 11.5 L 11.3 L Hct 32.3 L 32.1 L MCV 74 L 76 L MCH 26.3 L 26.7 L MCHC 35.6 35.3 RDW 19.2 H 19.4 H Plt Count 367 372 Lymph % (Auto) 5.8 L Not Reportable [place] % (Auto) 6.9 Not Reportable Eos % (Auto) 0.2 Not Reportable Baso % (Auto) 0.2 Not Reportable Reticulocyte # Absolute Neuts (auto) 13.3 H Not Reportable Absolute Lymphs (auto) 0.9 Not Reportable Absolute Monos (auto) 1.0 Not Reportable Absolute Eos (auto) 0.0 Not Reportable Absolute Basos (auto) 0.0 Not Reportable Total Counted 100 Seg Neutrophils % 86.9 H Not Reportable Seg Neuts % (Manual) 90 H Band Neutrophils % 1 L Lymphocytes % (Manual) 4 L Monocytes % (Manual) 5 Eosinophils % (Manual) 0 Basophils % (Manual) 0 Abs Neuts (Manual) 17.3 H Abs Lymphs (Manual) 0.8 Abs Monocytes (Manual) 1.0 Absolute Eos (Manual) 0.0 Abs Basophils (Manual) 0.0 Nucleated RBCs Hypersegmented Neuts Toxic Vacuolation PRESENT Clumped Platelets Platelet Comment ADEQUATE ADEQUATE Polychromasia SLIGHT SLIGHT Hypochromasia Poikilocytosis SLIGHT Anisocytosis 2+ 2+ Microcytosis 1+ 1+ Target Cells 1+ SLIGHT Tear Drop Cells Ovalocytes [place] Cells Schistocytes Retic Count (auto) PT INR APTT Sodium 130.8 L Potassium 3.6 Chloride 101 Carbon Dioxide 15 L Anion Gap 15 BUN 20 Creatinine 1.15 Est GFR ( Amer) 56 L Est GFR (MDRD) Non-Af 46 L Glucose 86 POC Glucose Calcium 9.6 Magnesium Iron TIBC % Saturation Ferritin Total Bilirubin Direct Bilirubin Neonat Total Bilirubin Neonat Direct Bilirubin Neonat Indirect Bili AST ALT Alkaline Phosphatase Creatine Kinase CK-MB (CK-2) Troponin I Total Protein Albumin Vitamin B12 Folate Urine Color Urine Appearance Urine pH Ur Specific [place] Urine Protein Urine Glucose (UA) Urine Ketones Urine Blood Urine Nitrite Urine Bilirubin Urine Urobilinogen Ur Leukocyte Esterase Urine WBC (Auto) Urine RBC (Auto) Squamous Epi Cells Auto Urine Mucus (Auto) Urine Ascorbic Acid Stool Occult Blood Time Trough Drawn Vancomycin Trough COVID-19 Source COVID-19 ([facility]) Influenza A (Rapid) Influenza B (Rapid) SARS-CoV-2 (PCR) Group A Strep Rapid Blood Type Antibody Screen Crossmatch 07/20/19 07/20/19 07/20/19 07:14 07:14 07:14 WBC 15.1 H RBC 3.97 Hgb 10.3 L Hct 29.3 L MCV 74 L MCH 26.0 L MCHC 35.2 RDW 19.0 H Plt Count 387 Lymph % (Auto) 5.2 L [place] % (Auto) 6.9 Eos % (Auto) 1.8 Baso % (Auto) 0.3 Reticulocyte # Absolute Neuts (auto) 13.0 H Absolute Lymphs (auto) 0.8 Absolute Monos (auto) 1.0 Absolute Eos (auto) 0.3 Absolute Basos (auto) 0.0 Total Counted Seg Neutrophils % 85.8 H Seg Neuts % (Manual) Band Neutrophils % Lymphocytes % (Manual) Monocytes % (Manual) Eosinophils % (Manual) Basophils % (Manual) Abs Neuts (Manual) Abs Lymphs (Manual) Abs Monocytes (Manual) Absolute Eos (Manual) Abs Basophils (Manual) Nucleated RBCs Hypersegmented Neuts Toxic Vacuolation Clumped Platelets Platelet Comment ADEQUATE Polychromasia SLIGHT Hypochromasia Poikilocytosis 1+ Anisocytosis 2+ Microcytosis Target Cells 1+ Tear Drop Cells Ovalocytes [place] Cells Schistocytes Retic Count (auto) PT INR APTT Sodium 132.5 L Potassium 3.9 Chloride 106 Carbon Dioxide 18 L Anion Gap 9 BUN 23 H Creatinine 1.16 Est GFR ( Amer) 55 L Est GFR (MDRD) Non-Af 46 L Glucose 98 POC Glucose Calcium 9.5 Magnesium Iron TIBC % Saturation Ferritin Total Bilirubin 0.8 Direct Bilirubin 0.2 Neonat Total Bilirubin Not Reportable Neonat Direct Bilirubin Not Reportable Neonat Indirect Bili Not Reportable AST 73 H ALT 34 Alkaline Phosphatase 63 Creatine Kinase CK-MB (CK-2) Troponin I Total Protein 5.4 L Albumin 2.4 L Vitamin B12 Folate Urine Color Urine Appearance Urine pH Ur Specific [place] Urine Protein Urine Glucose (UA) Urine Ketones Urine Blood Urine Nitrite Urine Bilirubin Urine Urobilinogen Ur Leukocyte Esterase Urine WBC (Auto) Urine RBC (Auto) Squamous Epi Cells Auto Urine Mucus (Auto) Urine Ascorbic Acid Stool Occult Blood Time Trough Drawn Vancomycin Trough COVID-19 Source COVID-19 ([facility]) Influenza A (Rapid) Influenza B (Rapid) SARS-CoV-2 (PCR) Group A Strep Rapid Blood Type Antibody Screen Crossmatch 07/21/19 07/21/19 07/22/19 05:49 05:49 05:30 WBC 13.8 H RBC 4.11 Hgb 10.9 L Hct 29.9 L MCV 73 L MCH 26.4 L MCHC 36.3 H RDW 19.4 H Plt Count 397 Lymph % (Auto) 6.6 L Grady % (Auto) 6.6 Eos % (Auto) 1.8 Baso % (Auto) 0.3 Reticulocyte # Absolute Neuts (auto) 11.7 H Absolute Lymphs (auto) 0.9 Absolute Monos (auto) 0.9 Absolute Eos (auto) 0.2 Absolute Basos (auto) 0.0 Total Counted Seg Neutrophils % 84.7 H Seg Neuts % (Manual) Band Neutrophils % Lymphocytes % (Manual) Monocytes % (Manual) Eosinophils % (Manual) Basophils % (Manual) Abs Neuts (Manual) Abs Lymphs (Manual) Abs Monocytes (Manual) Absolute Eos (Manual) Abs Basophils (Manual) Nucleated RBCs Hypersegmented Neuts Toxic Vacuolation Clumped Platelets Platelet Comment ADEQUATE Polychromasia Hypochromasia SLIGHT Poikilocytosis SLIGHT Anisocytosis 2+ Microcytosis 1+ Target Cells 1+ Tear Drop Cells Ovalocytes [place] Cells Schistocytes Retic Count (auto) PT INR APTT Sodium 132.4 L 130.4 L Potassium 3.9 3.9 Chloride 103 100 Carbon Dioxide 18 L 21 L Anion Gap 11 9 BUN 23 H 30 H Creatinine 0.91 1.00 Est GFR ( Amer) > 60 > 60 Est GFR (MDRD) Non-Af > 60 54 L Glucose 105 110 POC Glucose Calcium 9.6 9.6 Magnesium Iron TIBC % Saturation Ferritin Total Bilirubin 0.8 Direct Bilirubin 0.3 Neonat Total Bilirubin Not Reportable Neonat Direct Bilirubin Not Reportable Neonat Indirect Bili Not Reportable AST 114 H ALT 60 H Alkaline Phosphatase 82 Creatine Kinase CK-MB (CK-2) Troponin I Total Protein 5.9 L Albumin 2.8 L Vitamin B12 Folate Urine Color Urine Appearance Urine pH Ur Specific [place] Urine Protein Urine Glucose (UA) Urine Ketones Urine Blood Urine Nitrite Urine Bilirubin Urine Urobilinogen Ur Leukocyte Esterase Urine WBC (Auto) Urine RBC (Auto) Squamous Epi Cells Auto Urine Mucus (Auto) Urine Ascorbic Acid Stool Occult Blood Time Trough Drawn Vancomycin Trough COVID-19 Source COVID-19 ([facility]) Influenza A (Rapid) Influenza B (Rapid) SARS-CoV-2 (PCR) Group A Strep Rapid Blood Type Antibody Screen Crossmatch 07/22/19 07/22/19 07/22/19 05:30 17:40 17:40 WBC 13.9 H RBC 3.84 Hgb 9.9 L Hct 28.4 L MCV 74 L MCH 25.8 L MCHC 34.9 RDW 19.5 H Plt Count 404 Lymph % (Auto) 7.6 L Grady % (Auto) 7.0 Eos % (Auto) 1.2 Baso % (Auto) 0.8 Reticulocyte # Absolute Neuts (auto) 11.6 H Absolute Lymphs (auto) 1.1 Absolute Monos (auto) 1.0 Absolute Eos (auto) 0.2 Absolute Basos (auto) 0.1 Total Counted Seg Neutrophils % 83.4 H Seg Neuts % (Manual) Band Neutrophils % Lymphocytes % (Manual) Monocytes % (Manual) Eosinophils % (Manual) Basophils % (Manual) Abs Neuts (Manual) Abs Lymphs (Manual) Abs Monocytes (Manual) Absolute Eos (Manual) Abs Basophils (Manual) Nucleated RBCs Hypersegmented Neuts Toxic Vacuolation Clumped Platelets PRESENT Platelet Comment ADEQUATE Polychromasia Hypochromasia SLIGHT Poikilocytosis 1+ Anisocytosis 1+ Microcytosis 1+ Target Cells 1+ Tear Drop Cells Ovalocytes [place]lie Cells Schistocytes Retic Count (auto) PT INR APTT Sodium Potassium Chloride Carbon Dioxide Anion Gap BUN Creatinine 1.19 Est GFR ( Amer) 54 L Est GFR (MDRD) Non-Af 44 L Glucose POC Glucose Calcium Magnesium Iron TIBC % Saturation Ferritin Total Bilirubin Direct Bilirubin Neonat Total Bilirubin Neonat Direct Bilirubin Neonat Indirect Bili AST ALT Alkaline Phosphatase Creatine Kinase CK-MB (CK-2) Troponin I Total Protein Albumin Vitamin B12 Folate Urine Color Urine Appearance Urine pH Ur Specific [place] Urine Protein Urine Glucose (UA) Urine Ketones Urine Blood Urine Nitrite Urine Bilirubin Urine Urobilinogen Ur Leukocyte Esterase Urine WBC (Auto) Urine RBC (Auto) Squamous Epi Cells Auto Urine Mucus (Auto) Urine Ascorbic Acid Stool Occult Blood Time Trough Drawn 1740 Vancomycin Trough 13.7 COVID-19 Source COVID-19 ([facility]) Influenza A (Rapid) Influenza B (Rapid) SARS-CoV-2 (PCR) Group A Strep Rapid Blood Type Antibody Screen Crossmatch 07/23/19 07/23/19 07/23/19 05:09 05:09 05:09 WBC 15.0 H RBC 3.71 L Hgb 9.6 L Hct 27.1 L MCV 73 L MCH 25.9 L MCHC 35.5 RDW 18.8 H Plt Count 429 Lymph % (Auto) 8.2 L [place]ady % (Auto) 7.5 Eos % (Auto) 1.4 Baso % (Auto) 0.5 Reticulocyte # 0.066 Absolute Neuts (auto) 12.4 H Absolute Lymphs (auto) 1.2 Absolute Monos (auto) 1.1 Absolute Eos (auto) 0.2 Absolute Basos (auto) 0.1 Total Counted Seg Neutrophils % 82.4 H Seg Neuts % (Manual) Band Neutrophils % Lymphocytes % (Manual) Monocytes % (Manual) Eosinophils % (Manual) Basophils % (Manual) Abs Neuts (Manual) Abs Lymphs (Manual) Abs Monocytes (Manual) Absolute Eos (Manual) Abs Basophils (Manual) Nucleated RBCs Hypersegmented Neuts Toxic Vacuolation Clumped Platelets Platelet Comment Polychromasia Hypochromasia Poikilocytosis Anisocytosis Microcytosis Target Cells Tear Drop Cells Ovalocytes [place] Cells Schistocytes Retic Count (auto) 1.77 PT INR APTT Sodium 130.8 L Potassium 4.3 Chloride 99 Carbon Dioxide 22 Anion Gap 10 BUN 35 H Creatinine 1.18 Est GFR ( Amer) 54 L Est GFR (MDRD) Non-Af 45 L Glucose 108 POC Glucose Calcium 10.0 Magnesium Iron TIBC % Saturation Ferritin Total Bilirubin Direct Bilirubin Neonat Total Bilirubin Neonat Direct Bilirubin Neonat Indirect Bili AST ALT Alkaline Phosphatase Creatine Kinase CK-MB (CK-2) Troponin I Total Protein Albumin Vitamin B12 Folate Urine Color Urine Appearance Urine pH Ur Specific [place] Urine Protein Urine Glucose (UA) Urine Ketones Urine Blood Urine Nitrite Urine Bilirubin Urine Urobilinogen Ur Leukocyte Esterase Urine WBC (Auto) Urine RBC (Auto) Squamous Epi Cells Auto Urine Mucus (Auto) Urine Ascorbic Acid Stool Occult Blood Time Trough Drawn Vancomycin Trough COVID-19 Source COVID-19 ([facility]) Influenza A (Rapid) Influenza B (Rapid) SARS-CoV-2 (PCR) Group A Strep Rapid Blood Type Antibody Screen Crossmatch 07/23/19 07/23/19 07/23/19 05:09 12:55 18:40 WBC RBC Hgb Hct MCV MCH MCHC RDW Plt Count Lymph % (Auto) [place] % (Auto) Eos % (Auto) Baso % (Auto) Reticulocyte # Absolute Neuts (auto) Absolute Lymphs (auto) Absolute Monos (auto) Absolute Eos (auto) Absolute Basos (auto) Total Counted Seg Neutrophils % Seg Neuts % (Manual) Band Neutrophils % Lymphocytes % (Manual) Monocytes % (Manual) Eosinophils % (Manual) Basophils % (Manual) Abs Neuts (Manual) Abs Lymphs (Manual) Abs Monocytes (Manual) Absolute Eos (Manual) Abs Basophils (Manual) Nucleated RBCs Hypersegmented Neuts Toxic Vacuolation Clumped Platelets Platelet Comment Polychromasia Hypochromasia Poikilocytosis Anisocytosis Microcytosis Target Cells Tear Drop Cells Ovalocytes [place] Cells Schistocytes Retic Count (auto) PT INR APTT Sodium Potassium Chloride Carbon Dioxide Anion Gap BUN Creatinine Est GFR ( Amer) Est GFR (MDRD) Non-Af Glucose POC Glucose Calcium Magnesium Iron 18.9 L TIBC 185 L % Saturation 10 Ferritin 159.00 Total Bilirubin Direct Bilirubin Neonat Total Bilirubin Neonat Direct Bilirubin Neonat Indirect Bili AST ALT Alkaline Phosphatase Creatine Kinase CK-MB (CK-2) Troponin I Total Protein Albumin Vitamin B12 > 1000.0 H Folate 4.49 Urine Color Urine Appearance Urine pH Ur Specific [place] Urine Protein Urine Glucose (UA) Urine Ketones Urine Blood Urine Nitrite Urine Bilirubin Urine Urobilinogen Ur Leukocyte Esterase Urine WBC (Auto) Urine RBC (Auto) Squamous Epi Cells Auto Urine Mucus (Auto) Urine Ascorbic Acid Stool Occult Blood POSITIVE Time Trough Drawn Vancomycin Trough COVID-19 Source COVID-19 ([facility]) Influenza A (Rapid) Influenza B (Rapid) SARS-CoV-2 (PCR) Group A Strep Rapid NEGATIVE Blood Type Antibody Screen Crossmatch 07/23/19 07/23/19 07/23/19 18:42 18:44 18:44 WBC RBC Hgb Hct MCV MCH MCHC RDW Plt Count Lymph % (Auto) [place] % (Auto) Eos % (Auto) Baso % (Auto) Reticulocyte # Absolute Neuts (auto) Absolute Lymphs (auto) Absolute Monos (auto) Absolute Eos (auto) Absolute Basos (auto) Total Counted Seg Neutrophils % Seg Neuts % (Manual) Band Neutrophils % Lymphocytes % (Manual) Monocytes % (Manual) Eosinophils % (Manual) Basophils % (Manual) Abs Neuts (Manual) Abs Lymphs (Manual) Abs Monocytes (Manual) Absolute Eos (Manual) Abs Basophils (Manual) Nucleated RBCs Hypersegmented Neuts Toxic Vacuolation Clumped Platelets Platelet Comment Polychromasia Hypochromasia Poikilocytosis Anisocytosis Microcytosis Target Cells Tear Drop Cells Ovalocytes [place] Cells Schistocytes Retic Count (auto) PT INR APTT Sodium Potassium Chloride Carbon Dioxide Anion Gap BUN Creatinine Est GFR ( Amer) Est GFR (MDRD) Non-Af Glucose POC Glucose Calcium Magnesium Iron TIBC % Saturation Ferritin Total Bilirubin Direct Bilirubin Neonat Total Bilirubin Neonat Direct Bilirubin Neonat Indirect Bili AST ALT Alkaline Phosphatase Creatine Kinase CK-MB (CK-2) Troponin I Total Protein Albumin Vitamin B12 Folate Urine Color Urine Appearance Urine pH Ur Specific [place] Urine Protein Urine Glucose (UA) Urine Ketones Urine Blood Urine Nitrite Urine Bilirubin Urine Urobilinogen Ur Leukocyte Esterase Urine WBC (Auto) Urine RBC (Auto) Squamous Epi Cells Auto Urine Mucus (Auto) Urine Ascorbic Acid Stool Occult Blood Time Trough Drawn Vancomycin Trough COVID-19 Source Cancelled COVID-19 ([facility]) Cancelled Influenza A (Rapid) NEGATIVE Influenza B (Rapid) NEGATIVE SARS-CoV-2 (PCR) NEGATIVE Group A Strep Rapid Blood Type Antibody Screen Crossmatch 07/24/19 07/24/19 07/24/19 07:38 18:21 18:21 WBC 19.6 H RBC 3.13 L Hgb 7.9 L Hct 22.9 L MCV 73 L MCH 25.3 L MCHC 34.6 RDW 19.4 H Plt Count 472 H Lymph % (Auto) Not Reportable [place]ady % (Auto) Not Reportable Eos % (Auto) Not Reportable Baso % (Auto) Not Reportable Reticulocyte # Absolute Neuts (auto) Not Reportable Absolute Lymphs (auto) Not Reportable Absolute Monos (auto) Not Reportable Absolute Eos (auto) Not Reportable Absolute Basos (auto) Not Reportable Total Counted 100 Seg Neutrophils % Not Reportable Seg Neuts % (Manual) 93 H Band Neutrophils % Lymphocytes % (Manual) 2 L Monocytes % (Manual) 3 Eosinophils % (Manual) 2 Basophils % (Manual) 0 Abs Neuts (Manual) 18.2 H Abs Lymphs (Manual) 0.4 L Abs Monocytes (Manual) 0.6 Absolute Eos (Manual) 0.4 Abs Basophils (Manual) 0.0 Nucleated RBCs Hypersegmented Neuts PRESENT Toxic Vacuolation Clumped Platelets Platelet Comment ADEQUATE Polychromasia Hypochromasia 1+ Poikilocytosis Anisocytosis 2+ Microcytosis 1+ Target Cells 3+ Tear Drop Cells Ovalocytes [place] Cells Schistocytes SLIGHT Retic Count (auto) PT INR APTT Sodium 130.0 L 129.5 L Potassium 3.8 4.0 Chloride 100 97 L Carbon Dioxide 22 23 Anion Gap 8 10 BUN 34 H 34 H Creatinine 1.13 1.42 H Est GFR ( Amer) 57 L 44 L Est GFR (MDRD) Non-Af 47 L 36 L Glucose 109 124 H POC Glucose Calcium 9.4 9.6 Magnesium Iron TIBC % Saturation Ferritin Total Bilirubin 0.8 Direct Bilirubin 0.3 Neonat Total Bilirubin Not Reportable Neonat Direct Bilirubin Not Reportable Neonat Indirect Bili Not Reportable AST 71 H ALT 43 H Alkaline Phosphatase 84 Creatine Kinase CK-MB (CK-2) Troponin I Total Protein 5.4 L Albumin 2.4 L Vitamin B12 Folate Urine Color Urine Appearance Urine pH Ur Specific [place] Urine Protein Urine Glucose (UA) Urine Ketones Urine Blood Urine Nitrite Urine Bilirubin Urine Urobilinogen Ur Leukocyte Esterase Urine WBC (Auto) Urine RBC (Auto) Squamous Epi Cells Auto Urine Mucus (Auto) Urine Ascorbic Acid Stool Occult Blood Time Trough Drawn Vancomycin Trough COVID-19 Source COVID-19 ([facility]) Influenza A (Rapid) Influenza B (Rapid) SARS-CoV-2 (PCR) Group A Strep Rapid Blood Type Antibody Screen Crossmatch 07/24/19 07/25/19 07/25/19 20:57 11:23 11:23 WBC 15.6 H RBC 3.94 Hgb 10.7 L D Hct 30.0 L MCV 76 L MCH 27.2 MCHC 35.8 RDW 18.5 H Plt Count 370 Lymph % (Auto) Not Reportable Grady % (Auto) Not Reportable Eos % (Auto) Not Reportable Baso % (Auto) Not Reportable Reticulocyte # Absolute Neuts (auto) Not Reportable Absolute Lymphs (auto) Not Reportable Absolute Monos (auto) Not Reportable Absolute Eos (auto) Not Reportable Absolute Basos (auto) Not Reportable Total Counted 100 Seg Neutrophils % Not Reportable Seg Neuts % (Manual) 88 H Band Neutrophils % Lymphocytes % (Manual) 6 L Monocytes % (Manual) 5 Eosinophils % (Manual) 1 Basophils % (Manual) 0 Abs Neuts (Manual) 13.7 H Abs Lymphs (Manual) 0.9 Abs Monocytes (Manual) 0.8 Absolute Eos (Manual) 0.2 Abs Basophils (Manual) 0.0 Nucleated RBCs Hypersegmented Neuts Toxic Vacuolation Clumped Platelets Platelet Comment ADEQUATE Polychromasia SLIGHT Hypochromasia SLIGHT Poikilocytosis 2+ Anisocytosis 1+ Microcytosis 1+ Target Cells 2+ Tear Drop Cells Ovalocytes [place] Cells 1+ Schistocytes Retic Count (auto) PT INR APTT Sodium 130.4 L Potassium 4.1 Chloride 98 Carbon Dioxide 23 Anion Gap 9 BUN 39 H Creatinine 1.51 H Est GFR ( Amer) 41 L Est GFR (MDRD) Non-Af 34 L Glucose 125 H POC Glucose Calcium 9.5 Magnesium Iron TIBC % Saturation Ferritin Total Bilirubin 2.1 H Direct Bilirubin 1.2 H Neonat Total Bilirubin Not Reportable Neonat Direct Bilirubin Not Reportable Neonat Indirect Bili Not Reportable AST 64 H ALT 37 H Alkaline Phosphatase 73 Creatine Kinase CK-MB (CK-2) Troponin I Total Protein 5.2 L Albumin 2.4 L Vitamin B12 Folate Urine Color Urine Appearance Urine pH Ur Specific [place] Urine Protein Urine Glucose (UA) Urine Ketones Urine Blood Urine Nitrite Urine Bilirubin Urine Urobilinogen Ur Leukocyte Esterase Urine WBC (Auto) Urine RBC (Auto) Squamous Epi Cells Auto Urine Mucus (Auto) Urine Ascorbic Acid Stool Occult Blood Time Trough Drawn Vancomycin Trough COVID-19 Source COVID-19 ([facility]) Influenza A (Rapid) Influenza B (Rapid) SARS-CoV-2 (PCR) Group A Strep Rapid Blood Type B POSITIVE Antibody Screen NEGATIVE Crossmatch See Detail 07/25/19 07/26/19 07/26/19 17:28 09:23 09:23 WBC 16.6 H RBC 4.20 Hgb 11.2 L Hct 31.6 L MCV 75 L MCH 26.6 L MCHC 35.4 RDW 18.2 H Plt Count 403 Lymph % (Auto) Not Reportable [place]ady % (Auto) Not Reportable Eos % (Auto) Not Reportable Baso % (Auto) Not Reportable Reticulocyte # Absolute Neuts (auto) Not Reportable Absolute Lymphs (auto) Not Reportable Absolute Monos (auto) Not Reportable Absolute Eos (auto) Not Reportable Absolute Basos (auto) Not Reportable Total Counted 100 Seg Neutrophils % Not Reportable Seg Neuts % (Manual) 95 H Band Neutrophils % 2 L Lymphocytes % (Manual) 1 L Monocytes % (Manual) 2 L Eosinophils % (Manual) 0 Basophils % (Manual) 0 Abs Neuts (Manual) 16.1 H Abs Lymphs (Manual) 0.2 L Abs Monocytes (Manual) 0.3 Absolute Eos (Manual) 0.0 Abs Basophils (Manual) 0.0 Nucleated RBCs Hypersegmented Neuts Toxic Vacuolation Clumped Platelets Platelet Comment ADEQUATE Polychromasia SLIGHT Hypochromasia 1+ Poikilocytosis 2+ Anisocytosis 2+ Microcytosis 2+ Target Cells 2+ Tear Drop Cells Ovalocytes SLIGHT [place] Cells Schistocytes Retic Count (auto) PT INR APTT Sodium 130.8 L Potassium 4.2 Chloride 97 L Carbon Dioxide 23 Anion Gap 11 BUN 38 H Creatinine 1.58 H Est GFR ( Amer) 39 L Est GFR (MDRD) Non-Af 32 L Glucose 146 H POC Glucose Calcium 9.7 Magnesium Iron TIBC % Saturation Ferritin Total Bilirubin 1.2 Direct Bilirubin 0.6 H Neonat Total Bilirubin Not Reportable Neonat Direct Bilirubin Not Reportable Neonat Indirect Bili Not Reportable AST 59 H ALT 33 Alkaline Phosphatase 85 Creatine Kinase CK-MB (CK-2) Troponin I Total Protein 5.5 L Albumin 2.5 L Vitamin B12 Folate Urine Color Urine Appearance Urine pH Ur Specific [place] Urine Protein Urine Glucose (UA) Urine Ketones Urine Blood Urine Nitrite Urine Bilirubin Urine Urobilinogen Ur Leukocyte Esterase Urine WBC (Auto) Urine RBC (Auto) Squamous Epi Cells Auto Urine Mucus (Auto) Urine Ascorbic Acid Stool Occult Blood Time Trough Drawn 1728 Vancomycin Trough 21.6 H COVID-19 Source COVID-19 ([facility]) Influenza A (Rapid) Influenza B (Rapid) SARS-CoV-2 (PCR) Group A Strep Rapid Blood Type Antibody Screen Crossmatch 07/27/19 07/27/19 07/28/19 06:27 06:27 03:23 WBC 22.4 H RBC 3.85 Hgb 10.3 L Hct 28.7 L MCV 75 L MCH 26.7 L MCHC 35.7 RDW 18.1 H Plt Count 403 Lymph % (Auto) Not Reportable [place] % (Auto) Not Reportable Eos % (Auto) Not Reportable Baso % (Auto) Not Reportable Reticulocyte # Absolute Neuts (auto) Not Reportable Absolute Lymphs (auto) Not Reportable Absolute Monos (auto) Not Reportable Absolute Eos (auto) Not Reportable Absolute Basos (auto) Not Reportable Total Counted 100 Seg Neutrophils % Not Reportable Seg Neuts % (Manual) 90 H Band Neutrophils % Lymphocytes % (Manual) 3 L Monocytes % (Manual) 7 Eosinophils % (Manual) 0 Basophils % (Manual) 0 Abs Neuts (Manual) 20.2 H Abs Lymphs (Manual) 0.7 Abs Monocytes (Manual) 1.6 H Absolute Eos (Manual) 0.0 Abs Basophils (Manual) 0.0 Nucleated RBCs Hypersegmented Neuts Toxic Vacuolation Clumped Platelets Platelet Comment ADEQUATE Polychromasia Hypochromasia Poikilocytosis 1+ Anisocytosis 2+ Microcytosis 1+ Target Cells Tear Drop Cells Ovalocytes [place]lie Cells Schistocytes Retic Count (auto) PT INR APTT Sodium 128.8 L Potassium 4.6 Chloride 97 L Carbon Dioxide 22 Anion Gap 10 BUN 41 H Creatinine 1.61 H Est GFR ( Amer) 38 L Est GFR (MDRD) Non-Af 31 L Glucose 97 POC Glucose 119 H Calcium 9.5 Magnesium Iron TIBC % Saturation Ferritin Total Bilirubin 1.4 H Direct Bilirubin 0.9 H Neonat Total Bilirubin Not Reportable Neonat Direct Bilirubin Not Reportable Neonat Indirect Bili Not Reportable AST 56 H ALT 28 Alkaline Phosphatase 80 Creatine Kinase CK-MB (CK-2) Troponin I Total Protein 5.0 L Albumin 2.3 L Vitamin B12 Folate Urine Color Urine Appearance Urine pH Ur Specific [place] Urine Protein Urine Glucose (UA) Urine Ketones Urine Blood Urine Nitrite Urine Bilirubin Urine Urobilinogen Ur Leukocyte Esterase Urine WBC (Auto) Urine RBC (Auto) Squamous Epi Cells Auto Urine Mucus (Auto) Urine Ascorbic Acid Stool Occult Blood Time Trough Drawn Vancomycin Trough COVID-19 Source COVID-19 ([facility]) Influenza A (Rapid) Influenza B (Rapid) SARS-CoV-2 (PCR) Group A Strep Rapid Blood Type Antibody Screen Crossmatch 07/28/19 07/28/19 07/28/19 04:02 04:02 09:33 WBC RBC Hgb Hct MCV MCH MCHC RDW Plt Count Lymph % (Auto) [place] % (Auto) Eos % (Auto) Baso % (Auto) Reticulocyte # Absolute Neuts (auto) Absolute Lymphs (auto) Absolute Monos (auto) Absolute Eos (auto) Absolute Basos (auto) Total Counted Seg Neutrophils % Seg Neuts % (Manual) Band Neutrophils % Lymphocytes % (Manual) Monocytes % (Manual) Eosinophils % (Manual) Basophils % (Manual) Abs Neuts (Manual) Abs Lymphs (Manual) Abs Monocytes (Manual) Absolute Eos (Manual) Abs Basophils (Manual) Nucleated RBCs Hypersegmented Neuts Toxic Vacuolation Clumped Platelets Platelet Comment Polychromasia Hypochromasia Poikilocytosis Anisocytosis Microcytosis Target Cells Tear Drop Cells Ovalocytes [place] Cells Schistocytes Retic Count (auto) PT INR APTT Sodium Potassium Chloride Carbon Dioxide Anion Gap BUN Creatinine Est GFR ( Amer) Est GFR (MDRD) Non-Af Glucose POC Glucose Calcium Magnesium Iron TIBC % Saturation Ferritin Total Bilirubin Direct Bilirubin Neonat Total Bilirubin Neonat Direct Bilirubin Neonat Indirect Bili AST ALT Alkaline Phosphatase Creatine Kinase 21 L 177 H CK-MB (CK-2) 2.08 Troponin I 0.070 Total Protein Albumin Vitamin B12 Folate Urine Color Urine Appearance Urine pH Ur Specific [place] Urine Protein Urine Glucose (UA) Urine Ketones Urine Blood Urine Nitrite Urine Bilirubin Urine Urobilinogen Ur Leukocyte Esterase Urine WBC (Auto) Urine RBC (Auto) Squamous Epi Cells Auto Urine Mucus (Auto) Urine Ascorbic Acid Stool Occult Blood Time Trough Drawn Vancomycin Trough COVID-19 Source COVID-19 ([facility]) Influenza A (Rapid) Influenza B (Rapid) SARS-CoV-2 (PCR) Group A Strep Rapid Blood Type Antibody Screen Crossmatch 07/28/19 07/28/19 07/28/19 09:33 09:33 09:33 WBC 25.0 H RBC 3.50 L Hgb 9.3 L Hct 26.5 L MCV 76 L MCH 26.6 L MCHC 35.1 RDW 18.0 H Plt Count 347 Lymph % (Auto) Not Reportable [place]ady % (Auto) Not Reportable Eos % (Auto) Not Reportable Baso % (Auto) Not Reportable Reticulocyte # Absolute Neuts (auto) Not Reportable Absolute Lymphs (auto) Not Reportable Absolute Monos (auto) Not Reportable Absolute Eos (auto) Not Reportable Absolute Basos (auto) Not Reportable Total Counted 100 Seg Neutrophils % Not Reportable Seg Neuts % (Manual) 92 H Band Neutrophils % 2 L Lymphocytes % (Manual) 1 L Monocytes % (Manual) 5 Eosinophils % (Manual) 0 Basophils % (Manual) 0 Abs Neuts (Manual) 23.5 H Abs Lymphs (Manual) 0.3 L Abs Monocytes (Manual) 1.3 Absolute Eos (Manual) 0.0 Abs Basophils (Manual) 0.0 Nucleated RBCs 1 Hypersegmented Neuts Toxic Vacuolation Clumped Platelets PRESENT Platelet Comment ADEQUATE Polychromasia SLIGHT Hypochromasia 1+ Poikilocytosis 2+ Anisocytosis 1+ Microcytosis 1+ Target Cells 3+ Tear Drop Cells SLIGHT Ovalocytes [place] Cells Schistocytes SLIGHT Retic Count (auto) PT INR APTT Sodium 130.5 L Potassium 4.2 Chloride 96 L Carbon Dioxide 24 Anion Gap 11 BUN 40 H Creatinine 1.75 H Est GFR ( Amer) 34 L Est GFR (MDRD) Non-Af 28 L Glucose 87 POC Glucose Calcium 8.9 Magnesium Iron TIBC % Saturation Ferritin Total Bilirubin 1.0 Direct Bilirubin 0.6 H Neonat Total Bilirubin Not Reportable Neonat Direct Bilirubin Not Reportable Neonat Indirect Bili Not Reportable AST 75 H ALT 22 Alkaline Phosphatase 77 Creatine Kinase CK-MB (CK-2) 42.40 H Troponin I 2.400 Total Protein 4.6 L Albumin 2.1 L Vitamin B12 Folate Urine Color Urine Appearance Urine pH Ur Specific [place] Urine Protein Urine Glucose (UA) Urine Ketones Urine Blood Urine Nitrite Urine Bilirubin Urine Urobilinogen Ur Leukocyte Esterase Urine WBC (Auto) Urine RBC (Auto) Squamous Epi Cells Auto Urine Mucus (Auto) Urine Ascorbic Acid Stool Occult Blood Time Trough Drawn Vancomycin Trough COVID-19 Source COVID-19 ([facility]) Influenza A (Rapid) Influenza B (Rapid) SARS-CoV-2 (PCR) Group A Strep Rapid Blood Type Antibody Screen Crossmatch 07/28/19 07/28/19 07/28/19 16:00 16:00 16:00 WBC RBC Hgb Hct MCV MCH MCHC RDW Plt Count Lymph % (Auto) [place] % (Auto) Eos % (Auto) Baso % (Auto) Reticulocyte # Absolute Neuts (auto) Absolute Lymphs (auto) Absolute Monos (auto) Absolute Eos (auto) Absolute Basos (auto) Total Counted Seg Neutrophils % Seg Neuts % (Manual) Band Neutrophils % Lymphocytes % (Manual) Monocytes % (Manual) Eosinophils % (Manual) Basophils % (Manual) Abs Neuts (Manual) Abs Lymphs (Manual) Abs Monocytes (Manual) Absolute Eos (Manual) Abs Basophils (Manual) Nucleated RBCs Hypersegmented Neuts Toxic Vacuolation Clumped Platelets Platelet Comment Polychromasia Hypochromasia Poikilocytosis Anisocytosis Microcytosis Target Cells Tear Drop Cells Ovalocytes [place]lie Cells Schistocytes Retic Count (auto) PT INR APTT Sodium Potassium 4.8 Chloride Carbon Dioxide Anion Gap BUN Creatinine Est GFR ( Amer) Est GFR (MDRD) Non-Af Glucose POC Glucose Calcium Magnesium 2.2 Iron TIBC % Saturation Ferritin Total Bilirubin Direct Bilirubin Neonat Total Bilirubin Neonat Direct Bilirubin Neonat Indirect Bili AST ALT Alkaline Phosphatase Creatine Kinase 327 H CK-MB (CK-2) 66.50 H Troponin I 8.200 Total Protein Albumin Vitamin B12 Folate Urine Color Urine Appearance Urine pH Ur Specific [place] Urine Protein Urine Glucose (UA) Urine Ketones Urine Blood Urine Nitrite Urine Bilirubin Urine Urobilinogen Ur Leukocyte Esterase Urine WBC (Auto) Urine RBC (Auto) Squamous Epi Cells Auto Urine Mucus (Auto) Urine Ascorbic Acid Stool Occult Blood Time Trough Drawn Vancomycin Trough COVID-19 Source COVID-19 ([facility]) Influenza A (Rapid) Influenza B (Rapid) SARS-CoV-2 (PCR) Group A Strep Rapid Blood Type Antibody Screen Crossmatch EKG: On admission shows sinus rhythm with cannot exclude old inferior NM. The patient is EKG this morning shows ST segment elevation in inferior leads and also in the anterior leads V4 to V6 with ST depression in 1 aVL and V1 and V2. Subsequently after the patient was started on IV nitroglycerin the patient is EKG in sinus rhythm with evolutionary changes of inferior wall NM. The ST segments have normalized. Note after I started the patient on IV nitroglycerin and the EKG became better I have discussed the patient's case with the patient's daughter on the telephone. The patient is not a candidate for thrombolysis or for aggressive further treatment including cardiac catheterization. Hence we will treat the patient's with medications. Unfortunately the patient has a solitary kidney and also the patient's renal function shows moderately depressed kidney function. In view of the patient's age frail nature and history of recent GI bleed,and also the patient is anemic with a hemoglobin of 9.3 hence since the patient has no chest pain and the EKG is reverting back to normal ST segments and EKG showing evolutionary changes of inferior NM will not use full dose anticoagulation except for for rectal aspirin acute inferior wall ST segment NM. Continue IV nitroglycerin continue aspirin suppository. We will see if the patient can be given Lopressor either crushed or intravenously. In view of the cardiomyopathy also will start the patient on a ARB. Again this is subject to the patient being able to take orally. The patient's echocardiogram done later shows normal left ventricular chamber size with mild LVH. There is moderate diffuse hypokinesis with severe hypokinesis of the inferior wall and the IV septum. Ejection fraction is moderately reduced at 35%. There is mild to moderate mitral regurgitation. T here is aortic sclerosis without stenosis. There is mild to moderate tricuspid regurgitation with mild to moderate pulmonary hypertension. There is no pericardial effusion. IMPRESSION/RECOMMENDATION: 1. Acute inferior wall ST segment elevation NM. Continue IV nitroglycerin and aspirin per rectally. We will see if later we can reinstitute the patient's oral beta-leslie and also add an ZOFIA inhibitor. This is subjective the patient taking orally otherwise we have to revert to intravenous beta-leslie intravenous ZOFIA inhibitor. The patient most likely has underlying coronary artery disease since the patient is a prior history of NM. But the precipitating factor seems to be hypoxemia. 2. Acute hypoxemic respiratory failure secondary to patient's lung cancer and pneumonia. 3. Right lower lobe lung cancer: Oncology on the case 4. Right lower lobe postobstructive pneumonia: Continue antibiotics 5. Ischemic cardiomyopathy with moderately reduced LV ejection fraction. We will see if we can reinstitute the patient's beta-leslie and ZOFIA inhibitor. 6. Solitary kidney with atrophic right kidney. 7. Chronic kidney disease stage III: Avoid nephrotoxic drugs. 8. Hypertension: Blood pressure appears to be good. 9. Coronary artery disease by history: Old myocardial infarction most likely incomplete old inferior NM. 10.History of GI bleed and anemia. Medications reviewed. Medical regimen and management plan was attempted to be discussed with Dr. Alfredo. Will discuss later with Dr. Alvarez. Medical decision making is of high complexity. Medications adjusted. Will follow.
--- NOTE | 2019-07-28 20:44 | PDOC PROGRESS REPORT ---
Subjective Progress Note for:: 07/28/19 Subjective:: Patient seen by the bedside, she had ST elevated TX earlier this morning, Consultation requested from cardiology, I had a long discussion with patient's son today about his mother's condition, the son lives in [place], is asking for a transfer to [place], I called [facility], bed was not offered. Patient's condition is declining Reason For Visit: LARGE MASS IN RIGHT LOWER LOBE Physical Exam Vital Signs: Temp Pulse Resp BP Pulse Ox 97.3 F 72 35 H 115/66 97 07/28/19 16:51 07/28/19 19:30 07/28/19 16:51 07/28/19 19:30 07/28/19 19:30 Intake & Output 07/27/19 07/28/19 07/29/19 06:59 06:59 06:59 Intake Total 1250 2050 200 Output Total 800 Balance 1250 1250 200 Weight 75.4 kg 75.4 kg General appearance: PRESENT: no acute distress Eye exam: PRESENT: PERRLA Respiratory exam: PRESENT: rhonchi Cardiovascular exam: PRESENT: +S1, +S2 GI/Abdominal exam: PRESENT: soft Neurological exam: PRESENT: alert Results Laboratory Results: 07/28/19 09:33 07/28/19 16:00 07/28/19 07/28/19 07/28/19 09:33 09:33 16:00 WBC 25.0 H RBC 3.50 L Hgb 9.3 L Hct 26.5 L MCV 76 L MCH 26.6 L MCHC 35.1 RDW 18.0 H Plt Count 347 Seg Neutrophils % Not Reportable Sodium 130.5 L Potassium 4.2 4.8 Chloride 96 L Carbon Dioxide 24 Anion Gap 11 BUN 40 H Creatinine 1.75 H Est GFR ( Amer) 34 L Glucose 87 Calcium 8.9 Magnesium 2.2 Total Bilirubin 1.0 AST 75 H Alkaline Phosphatase 77 Total Protein 4.6 L Albumin 2.1 L 07/28/19 07/28/19 07/28/19 04:02 04:02 09:33 Creatine Kinase 21 L 177 H CK-MB (CK-2) 2.08 Troponin I 0.070 07/28/19 07/28/19 07/28/19 09:33 16:00 16:00 Creatine Kinase 327 H CK-MB (CK-2) 42.40 H 66.50 H Troponin I 2.400 8.200 Impressions: Head MRI 07/17/19 00:00 IMPRESSION: 1. No acute intracranial hemorrhage, mass, or evidence of acute territorial infarct/ischemia. 2. Moderate chronic small vessel ischemic change. EVIDENCE OF ACUTE STROKE: NO. Lung Biopsy CT 07/17/19 11:00 IMPRESSION: Successful CT-guided biopsy of the cavitary mass in the right lower lobe as detailed above. Chest CT 07/23/19 00:00 IMPRESSION: 1. New multifocal areas of ground-glass attenuation in both lungs suspicious for infectious process. Commonly reported imaging features of Covid 19 pneumonia are present. Other processes such as influenza pneumonia and organizing pneumonia, as can be seen with drug toxicity and connective tissue disease, can cause a similar imaging pattern. 2. Cavitary pulmonary mass in the medial right lower lobe is unchanged from p rior. Chest X-Ray 07/26/19 00:00 IMPRESSION: Bilateral infiltrates, similar to the CT on 07/23/2019 Assessment & Plan - Diagnosis (1) Pneumonia Qualifiers: Pneumonia type: due to unspecified organism Laterality: right Lung location: lower lobe of lung Qualified Code(s): J18.9 - Pneumonia, unspecified organism Is this a current diagnosis for this admission?: Yes Plan: Continue IV antibiotic (2) Aorto-iliac atherosclerosis Is this a current diagnosis for this admission?: Yes (3) Chronic kidney disease (CKD), stage III (moderate) Is this a current diagnosis for this admission?: Yes Plan: Consult nephrology (4) Metabolic encephalopathy Is this a current diagnosis for this admission?: Yes (5) Squamous cell carcinoma of right lung Is this a current diagnosis for this admission?: Yes Plan: Per oncology (6) Delirium Is this a current diagnosis for this admission?: Yes (7) Anemia Qualifiers: Anemia type: other cause Other causes of anemia: acute posthemorrhagic Qualified Code(s): D62 - Acute posthemorrhagic anemia Is this a current diagnosis for this admission?: Yes (8) Angiodysplasia of intestine with hemorrhage Is this a current diagnosis for this admission?: Yes (9) Acute hypoxemic respiratory failure Is this a current diagnosis for this admission?: Yes Plan: Continue BiPAP (10) ST elevation (STEMI) myocardial infarction Qualifiers: Involved coronary artery: unspecified coronary artery Qualified Code(s): I21.3 - ST elevation (STEMI) myocardial infarction of unspecified site Is this a current diagnosis for this admission?: Yes Plan: Consult cardiology - Time Time Spent with patient: 25-34 minutes Level of Care: IMCU
--- NOTE | 2019-07-28 21:24 | EKG REPORT ---
SEVERITY:- ABNORMAL ECG - SINUS RHYTHM ABNORMAL T, CONSIDER ISCHEMIA, DIFFUSE LEADS EVOLUTIONARY CHANGES OF ACUTE INFERIOR CA. : Confirmed by: Luiz Lopez MD 28-Jul-2019 21:23:59
--- NOTE | 2019-07-28 22:20 | XCELERA REPORT ---
[address] [address] Transthoracic Echocardiogram Report Name: ITA WITT Age: 74 yrs Gender: Female : 1945 Patient Status: Inpatient Patient Location: [address] [place] [address] Study Date: 07/28/2019 03:18 PM Height: 66 in Weight: 166 lb BSA: 1.8 m2 Procedure: A two-dimensional transthoracic echocardiogram with color flow and Doppler was performed. The study was technically limited with all images being suboptimal in quality. Reason For Study: ST elevation [place] History: ST elevation [place]. Ordering Physician: SANDI KNIGHT Performed By: Dorothy Alba Interpretation Summary The left ventricle is normal in size. There is mild concentric left ventricular hypertrophy. LV EF is 35% Left ventricular systolic function is moderately reduced. Doppler measurements suggest impaired left ventricular relaxation, which is associated with grade I/IV or mild diastolic dysfunction In a setting of moderate diffuse hypokonesis ,with increased hypokinesis of the IV septum and Inferior wall. There is no thrombus. No ASD ,VSD , or PFO seen The right ventricle is normal in size and function. The right ventricle is not well visualized secondary to technical limitations The right atrium is normal in size The left atrial size is normal. There is no evidence of mitral valve prolapse. There is no vegetation seen on the mitral valve. There is no mitral valve stenosis. There is a mild to moderate amount of mitral regurgitation There is no aortic valvular vegetation. There is no aortic valve stenosis There is aortic sclerosis without aortic stenosis. There is no LVOT obstruction. No aortic regurgitation is present. There is no tricuspid stenosis. There is a mild to moderate amount of tricuspid regurgitation There is mild to moderate pulmonary hypertension by echo RVSP is 43 to 48 mm of Hg. There is no pulmonic valvular stenosis. There is a mild amount of pulmonic regurgitation The aortic root is normal size. The inferior vena cava appeared normal and decreased < 50% with respiration (RAP 10-15 mmHg) There is no pericardial effusion. MMode/2D Measurements & Calculations RVDd: 2.3 cm LVIDd: 3.9 cm FS: 7.8 % Ao root diam: 2.7 cm IVSd: 1.4 cm LVIDs: 3.6 cm EDV(Teich): 66.2 ml Ao root area: 5.9 cm2 LVPWd: 1.1 cm ESV(Teich): 54.5 ml LA dimension: 2.3 cm EF(Teich): 17.6 % Doppler Measurements & Calculations MV E max preston: MV P1/2t max preston: Ao V2 max: LV V1 max P.1 cm/sec 92.3 cm/sec 106.6 cm/sec 3.2 mmHg MV A max preston: MV P1/2t: 78.0 msec Ao max PG: LV V1 max: 124.4 cm/sec MVA(P1/2t): 2.8 cm2 4.5 mmHg 88.8 cm/sec MV E/A: 0.56 MV dec slope: 346.4 cm/sec2 MV dec time: 0.27 sec PA V2 max: PI end-d preston: TR max preston: MV P1/2t-pr_phl: 55.2 cm/sec 134.2 cm/sec 287.8 cm/sec 78.0 msec PA max P.2 mmHg TR max P.1 mmHg Left Ventricle The left ventricle is normal in size. There is mild concentric left ventricular hypertrophy. LV EF is 35%. Left ventricular systolic function is moderately reduced. Doppler measurements suggest impaired left ventricular relaxation, which is associated with grade I/IV or mild diastolic dysfunction. In a setting of moderate diffuse hypokonesis ,with increased hypokinesis of the IV septum and Inferior wall. There is no thrombus. No ASD ,VSD , or PFO seen. Right Ventricle The right ventricle is normal in size and function. The right ventricle is not well visualized secondary to technical limitations. Atria The right atrium is normal in size. The left atrial size is normal. Mitral Valve There is no evidence of mitral valve prolapse. There is no vegetation seen on the mitral valve. There is no mitral valve stenosis. There is a mild to moderate amount of mitral regurgitation. Aortic Valve There is no aortic valvular vegetation. There is no aortic valve stenosis. There is aortic sclerosis without aortic stenosis. There is no LVOT obstruction. No aortic regurgitation is present. Tricuspid Valve There is no tricuspid stenosis. There is a mild to moderate amount of tricuspid regurgitation. There is mild to moderate pulmonary hypertension by echo. RVSP is 43 to 48 mm of Hg. Pulmonic Valve There is no pulmonic valvular stenosis. There is a mild amount of pulmonic regurgitation. Great Vessels The aortic root is normal size. The inferior vena cava appeared normal and decreased < 50% with respiration (RAP 10-15 mmHg). Effusions There is no pericardial effusion. Electronically signed by: Sandi Knight 07/28/2019 10:19 PM CC: SANDI KNIGHT, Sandi
[2019-07-28] MEDS: ATORVASTATIN CALCIUM 80 MG TABLET PO SCH (22:51)
[2019-07-29] MEDS: PIPERACILLIN SODIUM/TAZOBACTAM 3.375 GM in NORMAL SALINE 100 ML IV SCH ×5 (00:58→23:20)
[2019-07-29] MEDS: RINGERS SOLUTION,LACTATED 1,000 ML IV PRN ×2 (04:54→23:24)
[2019-07-29] MEDS: METOPROLOL TARTRATE 100 MG TABLET PO SCH (06:24)
[2019-07-29] MEDS: FENOFIBRATE NANOCRYSTALLIZED 145 MG TABLET PO SCH (08:29)
[2019-07-29] MEDS: LINEZOLID 600 MG/300 ML RTUPB IV SCH ×2 (10:51→23:18)
[2019-07-29] MEDS: AMLODIPINE BESYLATE 10 MG TABLET PO SCH (10:52)
[2019-07-29] MEDS: VALSARTAN 160 MG TABLET PO SCH (10:52)
[2019-07-29] MEDS: HYDROCHLOROTHIAZIDE 25 MG TABLET PO SCH (10:52)
[2019-07-29] MEDS: ASPIRIN 300 MG SUPP, RECTAL PR SCH (10:53)
--- NOTE | 2019-07-29 12:12 | Progress Note ---
Provider Note Provider Note: CARDIOLOGY PROGRESS NOTE by Dr. Sandi Amanda on 07/29/2019. OBJECTIVE: The patient complains of feeling shortness of breath she is on a BiPAP. She again denies chest pain discomfort. There is no arrhythmia seen. Today the patient is taking p.o. and hence we will convert the per rectal aspirin to p.o. aspirin. The patient is now getting metoprolol 100 mg p.o. every 12 hours and also the patient is getting valsartan. The patient is tolerating the nitroglycerin drip. She has no anginal symptoms. The patient's troponin I is trending up. Unfortunately we cannot put the patient on full dose anticoagulation due to recent GI bleed. The patient has anemia also. PHYSICAL EXAMINATION: The patient appears to be a frail build and appears to be chronically ill. Selected Entries 07/29/19 07/29/19 07/29/19 07:42 08:00 08:19 Temperature 97.6 F Temperature Axillary Source Pulse Rate 68 Respiratory 20 Rate Blood Pressure 115/65 BP Location Left Arm BP Position Supine O2 Sat by Pulse 96 Oximetry Fraction of 45 Inspired Oxygen (FIO2) Oxygen Flow 13.00 Rate Oxygen Delivery Bipap Method HEAD: Is atraumatic normocephalic. EYES: Pupils equal round regular reactive to light and accommodation. There is mild conjunctival pallor. There is no scleral icterus. ENT is negative the patient is on BiPAP. NECK: Supple. There is no JVD. Carotids are equal there is no bruits. There is no lymphadenopathy. There is no goiter. THERE is no accessory muscles of respiration use. Trachea central. LUNGS: Shows decreased breath sounds and dry crackles in the right base. There is a few scattered rhonchi bilaterally. There is no wheezing. HEART: S1-S2 is heard. There is no S3 gallop. There is no S4 gallop. There is systolic murmur in the left sternal border and the apex there is no cardiac rub. ABDOMEN: Soft. Nontender. There is no hepatosplenomegaly. Bowel sounds are well heard. EXTREMITIES: Femorals are diminished. There is no femoral bruits. Leg pulses are diminished. There is no pedal edema. There is no DVT or cellulitis. There is no pedal edema. There is no cyanosis or clubbing. DRAFTER ASSISTANT: Patient is slightly drowsy unable to establish whether the patient is confused or not. She moves all 4 extremities. PSYCHIATRIC:. The patient does not appear to be appear to be agitated or anxious. EKG: Shows sinus rhythm. Inferior CT with evolutionary T changes. Possible septal CT. Labs- All tests 24 hr 07/28/19 07/28/19 07/28/19 16:00 16:00 16:00 Potassium 4.8 Magnesium 2.2 Creatine Kinase 327 H CK-MB (CK-2) 66.50 H Troponin I 8.200 Chest X-Ray 07/17/19 00:00 IMPRESSION: 1. No postprocedural pneumothorax. 2. New parenchymal opacity in the left upper lobe - correlate with clinical findings to exclude a pneumonia. Chest X-Ray 07/17/19 00:00 IMPRESSION: No postprocedural pneumothorax. Head MRI 07/17/19 00:00 IMPRESSION: 1. No acute intracranial hemorrhage, mass, or evidence of acute territorial infarct/ischemia. 2. Moderate chronic small vessel ischemic change. EVIDENCE OF ACUTE STROKE: NO. Lung Biopsy CT 07/17/19 11:00 IMPRESSION: Successful CT-guided biopsy of the cavitary mass in the right lower lobe as detailed above. Chest X-Ray 07/20/19 00:00 IMPRESSION: Rehydration versus progressing pneumonia or metastatic disease in the left upper lobe. Chest CT 07/23/19 00:00 IMPRESSION: 1. New multifocal areas of ground-glass attenuation in both lungs suspicious for infectious process. Commonly reported imaging features of Covid 19 pneumonia are present. Other processes such as influenza pneumonia and organizing pneumonia, as can be seen with drug toxicity and connective tissue disease, can cause a similar imaging pattern. 2. Cavitary pulmonary mass in the medial right lower lobe is unchanged from prior. Chest X-Ray 07/26/19 00:00 IMPRESSION: Bilateral infiltrates, similar to the CT on 07/23/2019 IMPRESSION/RECOMMENDATION: 1. Acute inferior wall ST segment elevation CT. Continue IV nitroglycerin and aspirin will be given orally at the dose of 325 mg p.o. daily. We will change the patient's metoprolol 100 mg p.o. every 12 hours to Toprol-XL. Continue the patient's ARB. The patient most likely has underlying coronary artery disease since the patient is a prior history of CT. But the precipitating factor seems to be hypoxemia. 2. Acute hypoxemic respiratory failure secondary to patient's lung cancer and pneumonia. 3. Right lower lobe lung cancer: Oncology on the case 4. Right lower lobe postobstructive pneumonia: Continue antibiotics 5. Ischemic cardiomyopathy with moderately reduced LV ejection fraction. We will see if we can reinstitute the patient's beta-leslie and ZOFIA inhibitor. 6. Solitary kidney with atrophic right kidney. 7. Chronic kidney disease stage III: Avoid nephrotoxic drugs. 8. Hypertension: Blood pressure appears to be good. 9. Coronary artery disease by history: Old myocardial infarction most likely incomplete old inferior CT. 10.History of GI bleed and anemia. Medications reviewed. Medical regimen and management plan will be discussed with Dr. Alvarez. Medical decision making is of high complexity. Medications adjusted. 40 minutes spent as patient more than 50% of time spent in direct patient care. Will follow.
[2019-07-29] MEDS ORDERED: ASPIRIN 325 MG TABLET PO ONE (12:30)
--- NOTE | 2019-07-29 15:04 | PDOC PROGRESS REPORT ---
Subjective Progress Note for:: 07/29/19 Subjective:: She remain on BiPAP support and on Nitroglycerin infusion. No nausea or vomiting. No fever or chills. Reason For Visit: LARGE MASS IN RIGHT LOWER LOBE Physical Exam Vital Signs: Temp Pulse Resp BP Pulse Ox 97.6 F 74 20 110/71 96 07/29/19 07:42 07/29/19 14:00 07/29/19 07:42 07/29/19 14:00 07/29/19 14:00 Intake & Output 07/28/19 07/29/19 07/30/19 06:59 06:59 06:59 Intake Total 2350 1720 500 Output Total 800 450 Balance 1550 1270 500 Weight 75.4 kg 77.1 kg Physical Exam: General appearance: PRESENT: mild distress on BiPAP support with inability to get off without desaturation. Eye exam: PRESENT: conjunctiva pink. ABSENT: pallor, scleral icterus Mouth exam: PRESENT: moist Respiratory exam: PRESENT: crackles - scattered, decreased breath sounds - at lung bases Cardiovascular exam: PRESENT: RRR, +S1, +S2. ABSENT: diastolic murmur, rubs, systolic murmur GI/Abdominal exam: PRESENT: normal bowel sounds, soft. ABSENT: distended, guarding, mass, organomegaly, rebound, tenderness Extremities exam: ABSENT: pedal edema Neurological exam: PRESENT: alert, awake, appropriate in responses. Psychiatric exam: PRESENT: appropriate affect, normal mood. Skin exam: PRESENT: dry, warm Results Laboratory Results: 07/28/19 09:33 07/28/19 16:00 07/28/19 16:00 Potassium 4.8 Magnesium 2.2 07/28/19 07/28/19 07/28/19 04:02 04:02 09:33 Creatine Kinase 21 L 177 H CK-MB (CK-2) 2.08 Troponin I 0.070 07/28/19 07/28/19 07/28/19 09:33 16:00 16:00 Creatine Kinase 327 H CK-MB (CK-2) 42.40 H 66.50 H Troponin I 2.400 8.200 Impressions: Head MRI 07/17/19 00:00 IMPRESSION: 1. No acute intracranial hemorrhage, mass, or evidence of acute territorial infarct/ischemia. 2. Moderate chronic small vessel ischemic change. EVIDENCE OF ACUTE STROKE: NO. Lung Biopsy CT 07/17/19 11:00 IMPRESSION: Successful CT-guided biopsy of the cavitary mass in the right lower lobe as detailed above. Chest CT 07/23/19 00:00 IMPRESSION: 1. New multifocal areas of ground-glass attenuation in both lungs suspicious for infectious process. Commonly reported imaging features of Covid 19 pneumonia are present. Other processes such as influenza pneumonia and organizing pneumonia, as can be seen with drug toxicity and connective tissue disease, can cause a similar imaging pattern. 2. Cavitary pulmonary mass in the medial right lower lobe is unchanged from prior. Chest X-Ray 07/26/19 00:00 IMPRESSION: Bilateral infiltrates, similar to the CT on 07/23/2019 Assessment & Plan - Diagnosis (1) ST elevation (STEMI) myocardial infarction Qualifiers: Involved coronary artery: unspecified coronary artery Qualified Code(s): I21.3 - ST elevation (STEMI) myocardial infarction of unspecified site Is this a current diagnosis for this admission?: Yes Plan: Continue current medication management. (2) Squamous cell carcinoma of right lung Is this a current diagnosis for this admission?: Yes Plan: Continue support care at this time. Her benefit from chemotherapy at this time is limited. (3) Pneumonia Qualifiers: Pneumonia type: due to unspecified organism Laterality: right Lung location: lower lobe of lung Qualified Code(s): J18.9 - Pneumonia, unspecified organism Is this a current diagnosis for this admission?: Yes Plan: Maintain on IV Linezolid and Zosyn. Probably post obstructive process. - Time Time Spent with patient: 25-34 minutes Level of Care: IMCU Medications reviewed and adjusted accordingly: Yes Anticipated discharge: Hospice Within: Other - Inpatient Certification Based on my medical assessment, after consideration of the patient's comorbidities, presenting symptoms, or acuity I expect that the services needed warrant INPATIENT care.: Yes I certify that my determination is in accordance with my understanding of Medicare's requirements for reasonable and necessary INPATIENT services [42 CFR 412.3e].: Yes Medical Necessity: Significant Comorbidiites Make Outpatient Treatment Too Risky, Need Close Monitoring Due to Risk of Patient Decompensation, Need For IV Fluids, Need For Continuous Telemetry Monitoring, Risk of Complication if Not Cared For in Hospital, Risk of Diagnosis Which Will Require Inpatient Eval/ Care/Monitoring Post Hospital Care: D/C Theatrical Performer Documentation - Plan Summary Plan Summary: Continue current management and supportive care. Overall prognosis is very poor in view of her morbidities and compounded acute illness.
[2019-07-29] MEDS: PRAMIPEXOLE DI-HCL 0.25 MG TABLET PO SCH (17:33)
--- NOTE | 2019-07-29 21:33 | EKG REPORT ---
SEVERITY:- ABNORMAL ECG - SINUS RHYTHM EVOLUTIONARY CHANGES OF ACUTE INFERIOR NC : Confirmed by: Luiz Lopez MD 29-Jul-2019 21:33:15
[2019-07-29] MEDS: METOPROLOL SUCCINATE 50 MG TAB.SR.24H PO SCH (23:19)
[2019-07-29] MEDS: ATORVASTATIN CALCIUM 80 MG TABLET PO SCH (23:19)
[2019-07-29] MEDS: NITROGLYCERIN 50 MG/D5W 250 ML IV PRN (23:23)
[2019-07-30] MEDS: PIPERACILLIN SODIUM/TAZOBACTAM 3.375 GM in NORMAL SALINE 100 ML IV SCH ×3 (05:51→17:52)
[2019-07-30] MEDS: AMLODIPINE BESYLATE 10 MG TABLET PO SCH (10:02)
[2019-07-30] MEDS: VALSARTAN 160 MG TABLET PO SCH (10:02)
[2019-07-30] MEDS: HYDROCHLOROTHIAZIDE 25 MG TABLET PO SCH (10:02)
[2019-07-30] MEDS: METOPROLOL SUCCINATE 50 MG TAB.SR.24H PO SCH ×2 (10:02→21:35)
[2019-07-30] MEDS: LINEZOLID 600 MG/300 ML RTUPB IV SCH ×2 (10:02→21:34)
[2019-07-30] MEDS: FENOFIBRATE NANOCRYSTALLIZED 145 MG TABLET PO SCH (10:02)
--- NOTE | 2019-07-30 12:03 | Progress Note ---
Provider Note Provider Note: CARDIOLOGY PROGRESS NOTE by Dr. Sandi Monge on 07/30/2019. SUBJECTIVE: The patient continues to be on BiPAP. She states she is less short of breath and also appears to be visually much improved with less shortness of breath. There is no arrhythmia seen on the monitor. Again the patient vehemently denies any chest pain or discomfort. There is orthopnea present but no PND. There is no leg edema. There is no arrhythmia seen on the monitor. There is no TIA CVA symptoms. There is no evidence of ongoing bleeding and hemoglobin appears to be stable. Physical EXAMINATION: The Patient Is a Frail Build and Appears to Be Chronically Ill. At Present in No Acute Distress Although She Is Wearing a BiPAP. Selected Entries 07/30/19 07/30/19 10:00 11:00 Pulse Rate 86 Blood Pressure 129/74 H O2 Sat by Pulse 100 Oximetry Oxygen Delivery Bi-pap Method ( includes room air) Percent of 45 Oxygen Respiratory rate 22/min She is afebrile HEAD: Is atraumatic normocephalic. EYES: Pupils equal round regular reactive to light and accommodation. There is mild conjunctival pallor. There is no scleral icterus. ENT is negative the patient is on BiPAP. NECK: Supple. There is no JVD. Carotids are equal there is no bruits. There is no lymphadenopathy. There is no goiter. THERE is no accessory muscles of respiration use. Trachea central. LUNGS: Shows decreased breath sounds and dry crackles in the right base. There is a few scattered rhonchi bilaterally. There is no wheezing. HEART: S1-S2 is heard. There is no S3 gallop. There is no S4 gallop. There is systolic murmur in the left sternal border and the apex there is no cardiac rub. ABDOMEN: Soft. Nontender. There is no hepatosplenomegaly. Bowel sounds are well heard. EXTREMITIES: Femorals are diminished. There is no femoral bruits. Leg pulses are diminished. There is no pedal edema. There is no DVT or cellulitis. There is no pedal edema. There is no cyanosis or clubbing. 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 She moves all 4 extremities. PSYCHIATRIC:. The patient does not appear to be appear to be agitated or anxious. Chest X-Ray 07/17/19 00:00 IMPRESSION: 1. No postprocedural pneumothorax. 2. New parenchymal opacity in the left upper lobe - correlate with clinical findings to exclude a pneumonia. Chest X-Ray 07/17/19 00:00 IMPRESSION: No postprocedural pneumothorax. Head MRI 07/17/19 00:00 IMPRESSION: 1. No acute intracranial hemorrhage, mass, or evidence of acute territorial infarct/ischemia. 2. Moderate chronic small vessel ischemic change. EVIDENCE OF ACUTE STROKE: NO. Lung Biopsy CT 07/17/19 11:00 IMPRESSION: Successful CT-guided biopsy of the cavitary mass in the right lower lobe as detailed above. Chest X-Ray 07/20/19 00:00 IMPRESSION: Rehydration versus progressing pneumonia or metastatic disease in the left upper lobe. Chest CT 07/23/19 00:00 IMPRESSION: 1. New multifocal areas of ground-glass attenuation in both lungs suspicious for infectious process. Commonly reported imaging features of Covid 19 pneumonia are present. Other processes such as influenza pneumonia and organizing pneumonia, as can be seen with drug toxicity and connective tissue disease, can cause a similar imaging pattern. 2. Cavitary pulmonary mass in the medial right lower lobe is unchanged from prior. Chest X-Ray 07/26/19 00:00 IMPRESSION: Bilateral infiltrates, similar to the CT on 07/23/2019 IMPRESSION/RECOMMENDATION: 1. Acute inferior wall ST segment elevation VA the patient is not having any chest pain or discomfort. We will continue the patient's aspirin, Toprol-XL, and ARB. As mentioned earlier anticoagulation is a relative contraindication in this patient at present. This is for reasons mentioned earlier. We will stop the patient's IV nitroglycerin drip and start the patient on transdermal nitro at 0.6 mg/h daily. The patient most likely has underlying coronary artery disease since the patient is a prior history of VA. But the precipitating factor seems to be hypoxemia. Hypoxemia resolved on BiPAP. We will recheck the patient's EKG and troponin in the a.m. of 07/31/2019. 2. Acute hypoxemic respiratory failure secondary to patient's lung cancer and pneumonia. 3. Right lower lobe lung cancer: Oncology on the case 4. Right lower lobe postobstructive pneumonia: Continue antibiotics 5. Ischemic cardiomyopathy with moderately reduced LV ejection fraction. We will see if we can reinstitute the patient's beta-leslie and ZOFIA inhibitor. 6. Solitary kidney with atrophic right kidney. 7. Chronic kidney disease stage III: Avoid nephrotoxic drugs. 8. Hypertension: Blood pressure appears to be good. 9. Coronary artery disease by history: Old myocardial infarction most likely incomplete old inferior VA. 10.History of GI bleed and anemia. Medications reviewed. Medications changed. Medical regimen and management plan will be discussed with Dr. Alvarez. Medical decision making is of high complexity. Medications adjusted. 40 minutes spent as patient more than 50% of time spent in direct patient care. Will follow.
[2019-07-30] MEDS: NITROGLYCERIN 15 MG (0.6 MG/1 HR) PATCH.TD24 TD SCH (12:38)
--- NOTE | 2019-07-30 16:37 | PDOC PROGRESS REPORT ---
Subjective Progress Note for:: 07/30/19 Subjective:: Patient remain on BiPAP support. She is off Nitroglycerin infusion but currently on nitroglycerin patch. No nausea or vomiting. No fever or chills. Reason For Visit: LARGE MASS IN RIGHT LOWER LOBE Physical Exam Vital Signs: Temp Pulse Resp BP Pulse Ox 98.4 F 89 30 H 107/70 99 07/30/19 11:26 07/30/19 14:00 07/30/19 15:55 07/30/19 12:40 07/30/19 12:40 Intake & Output 07/29/19 07/30/19 07/31/19 06:59 06:59 06:59 Intake Total 1720 2278 480 Output Total 450 625 Balance 1270 1653 480 Weight 77.1 kg 79.7 kg Physical Exam: General appearance: PRESENT: mild distress on BiPAP support Eye exam: PRESENT: conjunctiva pink. ABSENT: pallor, scleral icterus Mouth exam: PRESENT: moist Respiratory exam: PRESENT: crackles - scattered, decreased breath sounds - at lung bases Cardiovascular exam: PRESENT: RRR, +S1, +S2. ABSENT: diastolic murmur, rubs, systolic murmur GI/Abdominal exam: PRESENT: normal bowel sounds, soft. ABSENT: distended, guarding, mass, organomegaly, rebound, tenderness Extremities exam: ABSENT: pedal edema Neurological exam: PRESENT: alert, awake, appropriate in responses. Psychiatric exam: PRESENT: appropriate affect, normal mood. Skin exam: PRESENT: dry, warm Results Laboratory Results: 07/28/19 09:33 07/28/19 16:00 07/28/19 07/28/19 07/28/19 04:02 04:02 09:33 Creatine Kinase 21 L 177 H CK-MB (CK-2) 2.08 Troponin I 0.070 07/28/19 07/28/19 07/28/19 09:33 16:00 16:00 Creatine Kinase 327 H CK-MB (CK-2) 42.40 H 66.50 H Troponin I 2.400 8.200 Impressions: Head MRI 07/17/19 00:00 IMPRESSION: 1. No acute intracranial hemorrhage, mass, or evidence of acute territorial infarct/ischemia. 2. Moderate chronic small vessel ischemic change. EVIDENCE OF ACUTE STROKE: NO. Lung Biopsy CT 07/17/19 11:00 IMPRESSION: Successful CT-guided biopsy of the cavitary mass in the right lower lobe as detailed above. Chest CT 07/23/19 00:00 IMPRESSION: 1. New multifocal areas of ground-glass attenuation in both lungs suspicious for infectious process. Commonly reported imaging features of Covid 19 pneumonia are present. Other processes such as influenza pneumonia and organizing pneumonia, as can be seen with drug toxicity and connective tissue disease, can cause a similar imaging pattern. 2. Cavitary pulmonary mass in the medial right lower lobe is unchanged from prior. Chest X-Ray 07/26/19 00:00 IMPRESSION: Bilateral infiltrates, similar to the CT on 07/23/2019 Assessment & Plan - Diagnosis (1) ST elevation (STEMI) myocardial infarction Qualifiers: Involved coronary artery: unspecified coronary artery Qualified Code(s): I21.3 - ST elevation (STEMI) myocardial infarction of unspecified site Is this a current diagnosis for this admission?: Yes (2) Squamous cell carcinoma of right lung Is this a current diagnosis for this admission?: Yes (3) Pneumonia Qualifiers: Pneumonia type: due to unspecified organism Laterality: right Lung location: lower lobe of lung Qualified Code(s): J18.9 - Pneumonia, unspecified organism Is this a current diagnosis for this admission?: Yes - Time Time Spent with patient: 25-34 minutes Level of Care: IMCU Medications reviewed and adjusted accordingly: Yes Anticipated discharge: Hospice Within: Other - Inpatient Certification Based on my medical assessment, after consideration of the patient's comorbidities, presenting symptoms, or acuity I expect that the services needed warrant INPATIENT care.: Yes I certify that my determination is in accordance with my understanding of Medicare's requirements for reasonable and necessary INPATIENT services [42 CFR 412.3e].: Yes Medical Necessity: Significant Comorbidiites Make Outpatient Treatment Too Risky, Need Close Monitoring Due to Risk of Patient Decompensation, Need For IV Fluids, Need For Continuous Telemetry Monitoring, Risk of Complication if Not Cared For in Hospital, Risk of Diagnosis Which Will Require Inpatient Eval/Care/Monitoring Post 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 Her overall prognosis remain very poor. Patient should go into hospice care program.
[2019-07-30] MEDS: PRAMIPEXOLE DI-HCL 0.25 MG TABLET PO SCH (17:52)
[2019-07-30] MEDS: ATORVASTATIN CALCIUM 80 MG TABLET PO SCH (21:35)
[2019-07-31] MEDS: PIPERACILLIN SODIUM/TAZOBACTAM 3.375 GM in NORMAL SALINE 100 ML IV SCH ×3 (00:15→13:26)
[2019-07-31] MEDS: RINGERS SOLUTION,LACTATED 1,000 ML IV PRN ×2 (05:47→20:10)
[2019-07-31 06:25] LABS: ABSOLUTE EOSINOPHILS # (AUTO) 0.2 10^3/uL (0.0-0.6); ABSOLUTE LYMPHOCYTES (AUTO) 0.8 10^3/uL (0.5-4.7); ABSOLUTE MONOCYTES (AUTO) 0.5 10^3/uL (0.1-1.4); ABSOLUTE NEUT (AUTO) 15.1 10^3/uL (1.7-8.2); BASOPHILS % (AUTO) 0.2 % (0-2); HEMATOCRIT 22.4 % (36.0-47.0); LYMPHOCYTES % (AUTO) 5.1 % (13-45); MEAN CORPUSCULAR HGB CONC 35.2 g/dL (32.0-36.0); MEAN CORPUSCULAR VOLUME 77 fl (80-97); MONOCYTES % (AUTO) 2.9 % (3-13); PLATELET COUNT 236 10^3/uL (150-450); RED BLOOD COUNT 2.92 10^6/uL (3.72-5.28); RED CELL DISTRIBUTION WIDTH 18.4 % (11.5-14.0); SEGMENTED NEUTROPHILS % (AUTO) 90.8 % (42-78); TOTAL CELLS COUNTED % (AUTO) 100 %; WHITE BLOOD COUNT 16.6 10^3/uL (4.0-10.5)
[2019-07-31 06:36] LABS: HEMOGLOBIN 7.9 g/dL (12.0-15.5)
[2019-07-31 06:43] LABS: ALKALINE PHOSPHATASE 64 U/L (38-126); ANION GAP 11 (5-19); ASPARTATE AMINO TRANSFERASE 62 U/L (14-36); BILIRUBIN,DIRECT 0.2 mg/dL (0.0-0.4); BILIRUBIN,TOTAL 0.6 mg/dL (0.2-1.3); BLOOD UREA NITROGEN 71 mg/dL (7-20); CALCIUM 8.7 mg/dL (8.4-10.2); CARBON DIOXIDE 22 mmol/L (22-30); CHLORIDE 99 mmol/L (98-107); GLUCOSE 98 mg/dL (75-110); TOTAL PROTEIN 4.7 g/dL (6.3-8.2)
--- NOTE | 2019-07-31 09:36 | Progress Note ---
Provider Note Provider Note: CARDIOLOGY PROGRESS NOTE by Dr. Sandi Monge on 07/31/2019. OBJECTIVE: The patient continues to be on BiPAP. She has some coughing fits off and on. She has mild shortness of breath. She denies any chest pain or discomfort. There is no arrhythmia seen on the monitor. The patient's hemoglobin is dropped to 7.9. And the BUN is increased. There is no TIA CVA symptoms. PHYSICAL EXAMINATION: The patient appears to be a frail build and chronically ill and malnourished. The patient is on BiPAP. Selected Entries 07/31/19 07:45 Temperature 97.7 F Temperature Axillary Source Pulse Rate 88 Respiratory 28 H Rate Blood Pressure 120/67 Blood Pressure 84 Mean BP Location Left Arm BP Position Supine O2 Sat by Pulse 100 Oximetry Oxygen Delivery Bipap Method Percent of 45 Oxygen HEAD: Is atraumatic normocephalic. EYES: Pupils equal round regular reactive to light and accommodation. There is mild conjunctival pallor. There is no scleral icterus. ENT is negative the patient is on BiPAP. NECK: Supple. There is no JVD. Carotids are equal there is no bruits. There is no lymphadenopathy. There is no goiter. THERE is no accessory muscles of respiration use. Trachea central. LUNGS: Shows decreased breath sounds and dry crackles in the right base. There is a few scattered rhonchi bilaterally. There is no wheezing. HEART: S1-S2 is heard. There is no S3 gallop. There is no S4 gallop. There is systolic murmur in the left sternal border and the apex there is no cardiac rub. ABDOMEN: Soft. Nontender. There is no hepatosplenomegaly. Bowel sounds are well heard. EXTREMITIES: Femorals are diminished. There is no femoral bruits. Leg pulses are diminished. There is no pedal edema. There is no DVT or cellulitis. There is no pedal edema. There is no cyanosis or clubbing. 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 She moves all 4 extremities. PSYCHIATRIC:. The patient does not appear to be appear to be agitated or anxious. IMPRESSION/RECOMMENDATION: 1. Acute inferior wall ST segment elevation AL the patient is not having any chest pain or discomfort. We will continue the patient's aspirin, Toprol-XL, and ARB. As mentioned earlier anticoagulation is a relative contraindication in this patient at present. This is for reasons mentioned earlier. Will continue topical nitrates. The patient most likely has underlying coronary artery disease since the patient is a prior history of AL. But the precipitating factor seems to be hypoxemia. Hypoxemia resolved on BiPAP. 2. Anemia. Hemoglobin is dropped to 7.9 hence there is ongoing GI bleed. Hence would recommend decrease the patient's aspirin to 81 mg p.o. daily instead of 325 mg p.o. daily. Also would transfuse the patient to keep the hemoglobin 10 or above. 3, Acute hypoxemic respiratory failure secondary to patient's lung cancer and pneumonia. 4. Right lower lobe lung cancer: Oncology on the case 5. Right lower lobe postobstructive pneumonia: Continue antibiotics 6. Ischemic cardiomyopathy with moderately reduced LV ejection fraction. We will see if we can reinstitute the patient's beta-leslie and ZOFIA inhibitor. 7. Solitary kidney with atrophic right kidney. 8. Chronic kidney disease stage III: Avoid nephrotoxic drugs. 9. Hypertension: Blood pressure appears to be good. 10. Coronary artery disease by history: Old myocardial infarction most likely incomplete old inferior AL. 11.History of GI bleed and anemia. Medications reviewed. Medications changed. Medical regimen and management plan will be discussed with Dr. Alfredo. Medical decision making is of high complexity. Medications adjusted. 40 minutes spent as patient more than 50% of time spent in direct patient care. Will follow.
[2019-07-31] MEDS: VALSARTAN 160 MG TABLET PO SCH (10:44)
[2019-07-31] MEDS: LINEZOLID 600 MG/300 ML RTUPB IV SCH ×2 (10:44→22:23)
[2019-07-31] MEDS: AMLODIPINE BESYLATE 10 MG TABLET PO SCH (10:44)
[2019-07-31] MEDS: FENOFIBRATE NANOCRYSTALLIZED 145 MG TABLET PO SCH (10:44)
[2019-07-31] MEDS: HYDROCHLOROTHIAZIDE 25 MG TABLET PO SCH (10:44)
[2019-07-31] MEDS: METOPROLOL SUCCINATE 50 MG TAB.SR.24H PO SCH ×2 (10:44→22:23)
[2019-07-31] MEDS: NITROGLYCERIN 15 MG (0.6 MG/1 HR) PATCH.TD24 TD SCH (10:45)
--- NOTE | 2019-07-31 10:46 | RADIOLOGY REPORT (SQ) ---
EXAM DESCRIPTION: CHEST SINGLE VIEW IMAGES COMPLETED DATE/TIME: 07/31/2019 9:39 am REASON FOR STUDY: Pneumonia COMPARISON: AP view of the chest from 07/26/2019. EXAM PARAMETERS: NUMBER OF VIEWS: One view. TECHNIQUE: An AP view of the chest was obtained. RADIATION DOSE: NA LIMITATIONS: None. FINDINGS: LUNGS AND PLEURA: Persistent multifocal/ multi-lobar opacities that involve the right uppe r, left upper and left lower lobes; compared to the radiograph from 07/26/2019, the degree of opacifica tion has decreased. The left lateral costophrenic sulcus is blunted. There is no pneumothorax. MEDIASTINUM AND HILAR STRUCTURES: Stable mediastinal and hilar contours. HEART AND VASCULAR STRUCTURES: Stable cardiac silhouette. BONES: No acute findings. HARDWARE: Cholecystectomy clips. OTHER: No other finding. IMPRESSION: Persistent multifocal/ multi-lobar opacities that involve the right upper, left upper an d left lower lobes; compared to the radiograph from 07/26/2019, the degree of opacification has decreas ed. TECHNICAL DOCUMENTATION: JOB ID: [id number] 2010 [employer]- All Rights Reserved Reading location - IP/workstation name: [email or web address]
[2019-07-31] MEDS ORDERED: NORMAL SALINE 250 ML IV PRN ×2 (12:19)
[2019-07-31 12:46] LABS: PATH REVIEW PATHOLOGIST REVIEWED
--- NOTE | 2019-07-31 13:27 | PDOC CONSULTATION ---
Consultation Consult Date: 07/31/19 Provider Consulted: Rosi CHILDS Consult reason:: Acute on chronic kidney disease History of Present Illness Admission Date/PCP: 07/13/19 09:42 YOLANDA VAZQUEZ MD History of Present Illness: ITA WITT is a 74 year old female With a past medical history of hypertension, diabetes and CKD stage III with atrophic right kidney and with a base creatinine 1.3 was admitted with history of progressive shortness of breath, coughing spells along with significant weight loss. CT scan done shows right lower lung mass.She underwent a needle biopsy under CT-guided by interventional radiology and as confirmed right squamous cell carcinoma moderately differentiated.She is currently BiPAP dependent. She looks moribund. She has very poor oral intake. Labs and medications were reviewed. Shows worsening creatinine today at 1.7. Remains nonoliguric. Her son wanted her transferred to [place] but [place] has declined given the current COVID pandemic and other issues. Past Medical History Cardiac Medical History: Reports: Hyperlipidemia, Hypertension-primary, Myocardial Infarction - 2000 Denies: Coronary Artery Disease Pulmonary Medical History: Reports: Pneumonia - As a child Denies: Asthma, Bronchitis, Chronic Obstructive Pulmonary Disease (COPD) Neurological Medical History: Denies: Seizures Endocrine Medical History: Reports: Diabetes Mellitus Type 2 Renal/ Medical History: Reports: Chronic Kidney Disease Stage III Musculoskeltal Medical History: Reports: Arthritis - Everywhere Psychiatric Medical History: Denies: Depression Past Surgical History Past Surgical History: Reports: Appendectomy, Cardiac Catheterization - w/stent, Cholecystectomy Social History Smoking Status: Current Every Day Smoker Frequency of Alcohol Use: None Hx Recreational Drug Use: No Drugs: None Hx Prescription Drug Abuse: No - Advance Directive Resuscitation Status: Do Not Resuscitate Family History Parental Family History Reviewed: No Children Family History Reviewed: No Sibling(s) Family History Reviewed.: No Medication/Allergy Home Medications: Clopidogrel Bisulfate [Clopidogrel] 75 mg PO QAM 05/11/16 Fenofibrate Nanocrystallized [Tricor 145 mg Tablet] 145 mg PO QAM 05/11/16 Losartan Potassium [Cozaar 50 mg Tablet] 50 mg PO QAM 05/11/16 Amlodipine/Valsartan/Hcthiazid [Exforge Hct 10-320-25 mg Tab] 1 tab PO DAILY 07/13/19 Megestrol Acetate [Megace Marge 400 mg/10 ml Udcup] 600 mg PO QAM 07/13/19 Metoprolol Tartrate [Lopressor 100 mg Tablet] 100 mg PO BID 07/13/19 Pramipexole Di-HCl [Mirapex] 0.125 mg PO QPM 07/13/19 Sertraline HCl 25 mg PO QAM 07/13/19 Allergies/Adverse Reactions: No Known Drug Allergies Allergy (Verified 07/21/16 14:53) sesonal allergy Allergy (Uncoded 07/20/16 12:46) Review of Systems Constitutional: PRESENT: anorexia, fatigue, weakness, weight loss - Significant. ABSENT: chills, fever(s), headache(s), night sweats Nose, Mouth, and Throat: ABSENT: mouth pain, sore throat Cardiovascular: PRESENT: dyspnea on exertion. ABSENT: chest pain, edema, orthropnea Respiratory: PRESENT: cough, dyspnea. ABSENT: hemoptysis Gastrointestinal: ABSENT: abdominal pain, bloating, coffee ground emesis, diarrhea, dysphagia, heartburn, hematemesis, hematochezia, nausea, vomiting Genitourinary: ABSENT: difficulty urinating, dysuria, hematuria Musculoskeletal: ABSENT: deformity, joint swelling Integumentary: ABSENT: lesions, pruritus, rash Neurological: ABSENT: abnormal movements, focal weakness, frequent falls, lack of coordination Psychiatric: ABSENT: hallucinations, suicidal ideation Hematologic/Lymphatic: ABSENT: easy bleeding, lymphadenopathy Physical Exam Vital Signs: Temp Pulse Resp BP Pulse Ox 97.7 F 88 31 H 120/67 97 07/31/19 07:45 07/31/19 07:45 07/31/19 08:37 07/31/19 07:45 07/31/19 08:37 Intake & Output 07/30/19 07/31/19 08/01/19 06:59 06:59 06:59 Intake Total 2278 2180 Output Total 667 875 Balance 1653 1305 Weight 79.7 kg 79.3 kg General appearance: PRESENT: disheveled, mild distress - Currently on BiPAP. She looks moribund and has lost significant weight. Eye exam: PRESENT: EOMI, PERRLA. ABSENT: scleral icterus Ear exam: PRESENT: normal external ear exam Mouth exam: PRESENT: neck supple. ABSENT: moist Neck exam: ABSENT: lymphadenopathy, meningismus, tenderness, thyromegaly, trac heal deviation Respiratory exam: PRESENT: clear to auscultation kenney, decreased breath sounds. ABSENT: crackles Cardiovascular exam: PRESENT: +S1, +S2 GI/Abdominal exam: PRESENT: normal bowel sounds, soft. ABSENT: organomegaly, tenderness Extremities exam: ABSENT: pedal edema Neurological exam: PRESENT: alert, awake, oriented to person, oriented to place Psychiatric exam: PRESENT: depressed Skin exam: ABSENT: erythema, mottled, rash Results Laboratory Results: 07/31/19 05:43 07/31/19 05:43 07/31/19 07/31/19 05:43 05:43 WBC 16.6 H RBC 2.92 L Hgb 7.9 L Hct 22.4 L MCV 77 L MCH 27.0 MCHC 35.2 RDW 18.4 H Plt Count 236 Seg Neutrophils % 90.8 H Sodium 132.4 L Potassium 4.0 Chloride 99 Carbon Dioxide 22 Anion Gap 11 BUN 71 H Creatinine 1.77 H Est GFR ( Amer) 34 L Glucose 98 Calcium 8.7 Total Bilirubin 0.6 AST 62 H Alkaline Phosphatase 64 Total Protein 4.7 L Albumin 2.0 L 07/28/19 07/28/19 07/28/19 04:02 04:02 09:33 Creatine Kinase 21 L 177 H CK-MB (CK-2) 2.08 Troponin I 0.070 07/28/19 07/28/19 07/28/19 09:33 16:00 16:00 Creatine Kinase 327 H CK-MB (CK-2) 42.40 H 66.50 H Troponin I 2.400 8.200 07/31/19 05:43 Creatine Kinase CK-MB (CK-2) Troponin I 7.020 Impressions: Head MRI 07/17/19 00:00 IMPRESSION: 1. No acute intracranial hemorrhage, mass, or evidence of acute territorial infarct/ischemia. 2. Moderate chronic small vessel ischemic change. EVIDENCE OF ACUTE STROKE: NO. Lung Biopsy CT 07/17/19 11:00 IMPRESSION: Successful CT-guided biopsy of the cavitary mass in the right lower lobe as detailed above. Chest CT 07/23/19 00:00 IMPRESSION: 1. New multifocal areas of ground-glass attenuation in both lungs suspicious for infectious process. Commonly reported imaging features of Covid 19 pneumonia are present. Other processes such as influenza pneumonia and organizing pneumonia, as can be seen with drug toxicity and connective tissue disease, can cause a similar imaging pattern. 2. Cavitary pulmonary mass in the medial right lower lobe is unchanged from prior. Chest X-Ray 07/31/19 00:00 IMPRESSION: Persistent multifocal/ multi-lobar opacities that involve the right upper, left upper and left lower lobes; compared to the radiograph from 07/26/2019, the degree of opacification has decreased. Assessment & Plan - Diagnosis (1) SOBIA (acute kidney injury) Plan: She has worsening of renal functions in the face of solitary functioning left kidney with atrophic right kidney. Multifactorial and includes ATN from pneumonia/possible contrast nephropathy. She has now got apparently what looks like metastatic squamous cell carcinoma with obstructive pneumonia. She has extremely poor oral intake. She has got obstructive pneumonia and is currently on multiple antibiotics cultures pending. Please dose medications to GFR of approximately 25 cc/min and I will make adjustments on her Pip -Tazo. Given her overall conditions and comorbidities she is not a candidate for renal replacements in the long run for these reasons. Currently no indications. (2) Acute hypoxemic respiratory failure Is this a current diagnosis for this admission?: Yes Plan: Currently BiPAP dependent. (3) Squamous cell carcinoma of right lung Is this a current diagnosis for this admission?: Yes Plan: As per Dr. Vazquez and heme oncologist. (4) ST elevation (STEMI) myocardial infarction Qualifiers: Involved coronary artery: unspecified coronary artery Qualified Code(s): I21.3 - ST elevation (STEMI) myocardial infarction of unspecified site Is this a current diagnosis for this admission?: Yes Plan: Being managed by hospitalist. Unfortunately cannot be on anticoagulants apparently given current GI bleeding as well. Overall grim situation. (5) Anemia Qualifiers: Anemia type: other cause Other causes of anemia: acute posthemorrhagic Qualified Code(s): D62 - Acute posthemorrhagic anemia Is this a current diagnosis for this admission?: Yes Plan: Has GI bleed. Anticoagulants planned for acute ST [place] is also been withheld given her current situations. (6) Obstructive pneumonia Plan: Right lung given her neoplasm. Currently on antibiotics.Her COVID PCR was negative.
[2019-07-31] MEDS: PRAMIPEXOLE DI-HCL 0.25 MG TABLET PO SCH (17:37)
--- NOTE | 2019-07-31 18:19 | PDOC PROGRESS REPORT ---
Subjective Progress Note for:: 07/31/19 Subjective:: Patient seen by the bedside she is essentially BiPAP dependent, whenever she is off of the BiPAP she desaturates very quickly to in the low 60s.I had a long discussion with patient's family of the need to transition care to hospice, she is not a candidate for any oncologic care because of extremely poor function, she also have multiple comorbidities including acute on chronic kidney disease, recent ST elevated myocardial infarction, upper GI bleed partly from GI a ngiodysplasia due to use of anticoagulant and antiplatelet, diffuse basilar pneumonia,albeit Slight improvement of the pneumonia on chest x-ray.I suggested 2 scenarios, she could be transferred to hospice facility or she can be discharged home with hospice which ever option family chooses is up to the familyI appreciate the consultation from the different specialties including cardiology, Dr. Slaughter, nephrology Dr. Edilberto Swan, oncology Dr. Yusuf as well as infectious disease, Unfortunately I do not think patient will do well. I had a long discussion with [facility] on Wednesday although I was not direct sales professional, [facility] declined to accept patient in transfer, The transfe r was requested by patient's son. She was transfused with blood today because of anemia with hemoglobin 7.8 Reason For Visit: LARGE MASS IN RIGHT LOWER LOBE Physical Exam Vital Signs: Temp Pulse Resp BP Pulse Ox 97.9 F 90 28 H 120/78 100 07/31/19 17:29 07/31/19 17:29 07/31/19 17:29 07/31/19 17:29 07/31/19 16:29 Intake & Output 07/30/19 07/31/19 08/01/19 06:59 06:59 06:59 Intake Total 2278 2180 400 Output Total 625 875 Balance 1653 1305 400 Weight 79.7 kg 79.3 kg General appearance: PRESENT: mild distress Eye exam: PRESENT: PERRLA Respiratory exam: PRESENT: rhonchi Cardiovascular exam: PRESENT: +S1, +S2 GI/Abdominal exam: PRESENT: soft Results Laboratory Results: 07/31/19 05:43 07/31/19 05:43 07/31/19 07/31/19 07/31/19 05:43 05:43 12:30 WBC 16.6 H RBC 2.92 L Hgb 7.9 L Hct 22.4 L MCV 77 L MCH 27.0 MCHC 35.2 RDW 18.4 H Plt Count 236 Seg Neutrophils % 90.8 H Sodium 132.4 L Potassium 4.0 Chloride 99 Carbon Dioxide 22 Anion Gap 11 BUN 71 H Creatinine 1.77 H Est GFR ( Amer) 34 L Glucose 98 Calcium 8.7 Total Bilirubin 0.6 AST 62 H Alkaline Phosphatase 64 Total Protein 4.7 L Albumin 2.0 L Blood Type B POSITIVE Antibody Screen NEGATIVE 07/28/19 07/28/19 07/28/19 04:02 04:02 09:33 Creatine Kinase 21 L 177 H CK-MB (CK-2) 2.08 Troponin I 0.070 07/28/19 07/28/19 07/28/19 09:33 16:00 16:00 Creatine Kinase 327 H CK-MB (CK-2) 42.40 H 66.50 H Troponin I 2.400 8.200 07/31/19 05:43 Creatine Kinase CK-MB (CK-2) Troponin I 7.020 Impressions: Head MRI 07/17/19 00:00 IMPRESSION: 1. No acute intracranial hemorrhage, mass, or evidence of acute territorial infarct/ischemia. 2. Moderate chronic small vessel ischemic change. EVIDENCE OF ACUTE STROKE: NO. Lung Biopsy CT 07/17/19 11:00 IMPRESSION: Successful CT-guided biopsy of the cavitary mass in the right lower lobe as detailed above. Chest CT 07/23/19 00:00 IMPRESSION: 1. New multifocal areas of ground-glass attenuation in both lungs suspicious for infectious process. Commonly reported imaging features of Covid 19 pneumonia are present. Other processes such as influenza pneumonia and organizing pneumoni a, as can be seen with drug toxicity and connective tissue disease, can cause a similar imaging pattern. 2. Cavitary pulmonary mass in the medial right lower lobe is unchanged from prior. Chest X-Ray 07/31/19 00:00 IMPRESSION: Persistent multifocal/ multi-lobar opacities that involve the right upper, left upper and left lower lobes; compared to the radiograph from 07/26/2019, the degree of opacification has decreased. Assessment & Plan - Diagnosis (1) Pneumonia Qualifiers: Pneumonia type: due to unspecified organism Laterality: right Lung location: lower lobe of lung Qualified Code(s): J18.9 - Pneumonia, unspecified organism Is this a current diagnosis for this admission?: Yes Plan: Continue antibiotic, no pathogen isolated, treatment is empiric (2) Aorto-iliac atherosclerosis Is this a current diagnosis for this admission?: Yes (3) Chronic kidney disease (CKD), stage III (moderate) Is this a current diagnosis for this admission?: Yes (4) Metabolic encephalopathy Is this a current diagnosis for this admission?: Yes (5) Squamous cell carcinoma of right lung Is this a current diagnosis for this admission?: Yes (6) Delirium Is this a current diagnosis for this admission?: Yes (7) Anemia Qualifiers: Anemia type: other cause Other causes of anemia: acute posthemorrhagic Qualified Code(s): D62 - Acute posthemorrhagic anemia Is this a current diagnosis for this admission?: Yes Plan: Transfuse 2 units of packed red blood cells (8) Angiodysplasia of intestine with hemorrhage Is this a current diagnosis for this admission?: Yes (9) Acute hypoxemic respiratory failure Is this a current diagnosis for this admission?: Yes (10) ST elevation (STEMI) myocardial infarction Qualifiers: Involved coronary artery: unspecified coronary artery Qualified Code(s): I21.3 - ST elevation (STEMI) myocardial infarction of unspecified site Is this a current diagnosis for this admission?: Yes Plan: Management per cardiology (11) SOBIA (acute kidney injury) Is this a current diagnosis for this admission?: Yes - Time Time Spent with patient: 35 or more minutes Level of Care: IMCU - Plan Summary Plan Summary: Hospice care highly recommended
[2019-07-31] MEDS: PIPERACILLIN SODIUM/TAZOBACTAM 2.25 GM in NORMAL SALINE 50 ML IV SCH (19:45)
[2019-07-31] MEDS: ATORVASTATIN CALCIUM 80 MG TABLET PO SCH (22:23)
--- NOTE | 2019-07-31 22:29 | EKG REPORT ---
SEVERITY:- ABNORMAL ECG - SINUS RHYTHM MULTIPLE VENTRICULAR PREMATURE COMPLEXES PROBABLE LEFT ATRIAL ABNORMALITY LOW VOLTAGE IN FRONTAL LEADS BORDERLINE R WAVE PROGRESSION, ANTERIOR LEADS ABNORMAL T, CONSIDER ISCHEMIA, INFERIOR LEADS : Confirmed by: Shena Jorgensen 31-Jul-2019 22:29:16
[2019-07-31] MEDS ORDERED: FUROSEMIDE INJ/PF 20 MG/2 ML SDV IV ONE (23:45)
[2019-08-01] MEDS: PIPERACILLIN SODIUM/TAZOBACTAM 2.25 GM in NORMAL SALINE 50 ML IV SCH ×4 (00:47→17:55)
[2019-08-01 03:01] LABS: HEMATOCRIT 30.7 % (36.0-47.0); MEAN CORPUSCULAR HGB CONC 34.6 g/dL (32.0-36.0); MEAN CORPUSCULAR VOLUME 78 fl (80-97); PLATELET COUNT 192 10^3/uL (150-450); RED BLOOD COUNT 3.92 10^6/uL (3.72-5.28); RED CELL DISTRIBUTION WIDTH 19.6 % (11.5-14.0); WHITE BLOOD COUNT 16.5 10^3/uL (4.0-10.5)
[2019-08-01 03:03] LABS: HEMOGLOBIN 10.6 g/dL (12.0-15.5)
[2019-08-01] MEDS: RINGERS SOLUTION,LACTATED 1,000 ML IV PRN ×2 (06:03→17:55)
--- NOTE | 2019-08-01 07:04 | Progress Note ---
Provider Note Provider Note: I had a long discussion yesterday with patient's daughter by phone. All of her questions were answered. I have explained that due to a multitude of other factors, she is not a candidate for treatment of her cancer and that she is very appropriate for Hospice services, However, family still trying to speak with a ll of her physicians and asking for other aggressive options. They are still trying to figure out how to get her closer to family in the [facility]. They understand that [facility] has declined transfer, but they state that if there is any other hospital system that can get her closer to her son, they still are searching for options. Patient is still dependent on BiPAP. No reported pain. Not eating much. I will continue to follow and answer family questions.
[2019-08-01] MEDS: LINEZOLID 600 MG/300 ML RTUPB IV SCH ×2 (11:35→21:24)
[2019-08-01] MEDS: METOPROLOL SUCCINATE 50 MG TAB.SR.24H PO SCH ×2 (11:35→21:24)
[2019-08-01] MEDS: VALSARTAN 160 MG TABLET PO SCH (11:36)
[2019-08-01] MEDS: FENOFIBRATE NANOCRYSTALLIZED 145 MG TABLET PO SCH (11:36)
[2019-08-01] MEDS: AMLODIPINE BESYLATE 10 MG TABLET PO SCH (11:37)
[2019-08-01] MEDS: HYDROCHLOROTHIAZIDE 25 MG TABLET PO SCH (11:37)
[2019-08-01] MEDS: NITROGLYCERIN 15 MG (0.6 MG/1 HR) PATCH.TD24 TD SCH (11:44)
[2019-08-01] MEDS: PRAMIPEXOLE DI-HCL 0.25 MG TABLET PO SCH (17:55)
--- NOTE | 2019-08-01 19:17 | RADIOLOGY REPORT (SQ) ---
EXAM DESCRIPTION: CHEST SINGLE VIEW IMAGES COMPLETED DATE/TIME: 08/01/2019 6:28 pm REASON FOR STUDY: pneumonia COMPARISON: 07/31/2019 EXAM PARAMETERS: NUMBER OF VIEWS: One view. TECHNIQUE: Single frontal radiographic view of the chest acquired. RADIATION DOSE: NA LIMITATIONS: None. FINDINGS: LUNGS AND PLEURA: There is residual opacification in the right upper lobe. Limited opacif ication in the left base. MEDIASTINUM AND HILAR STRUCTURES: No masses. Contour normal. HEART AND VASCULAR STRUCTURES: Heart size is borderline. BONES: No acute findings. HARDWARE: None in the chest. OTHER: No other significant finding. IMPRESSION: Multicentric pneumonia. Borderline heart size without tung pulmonary edema. TECHNICAL DOCUMENTATION: JOB ID: [id number] 2010 [employer]- All Rights Reserved Reading location - IP/workstation name: [email or web address]
[2019-08-01 19:28] LABS: HEMATOCRIT 29.2 % (36.0-47.0); HEMOGLOBIN 10.3 g/dL (12.0-15.5); MEAN CORPUSCULAR HEMOGLOBIN 27.8 pg (27.0-33.4); MEAN CORPUSCULAR HGB CONC 35.3 g/dL (32.0-36.0); MEAN CORPUSCULAR VOLUME 79 fl (80-97); PLATELET COUNT 215 10^3/uL (150-450); RED BLOOD COUNT 3.71 10^6/uL (3.72-5.28); RED CELL DISTRIBUTION WIDTH 19.4 % (11.5-14.0); WHITE BLOOD COUNT 18.5 10^3/uL (4.0-10.5)
[2019-08-01 19:44] LABS: ABSOLUTE LYMPHOCYTES# (MANUAL) 0.6 10^3/uL (0.5-4.7); ABSOLUTE MONOCYTES # (MANUAL) 0.7 10^3/uL (0.1-1.4); BASOPHILS % (MANUAL) 0 % (0-2); EOSINOPHILS % (MANUAL) 0 % (0-6); LYMPHOCYTES % (MANUAL) 3 % (13-45); MONOCYTES % (MANUAL) 4 % (3-13); SEGMENTED NEUTROPHILS % (MAN) 93 % (42-78); TOTAL CELLS COUNTED 100
[2019-08-01 19:46] LABS: ANISOCYTOSIS 2+; POLYCHROMASIA SLIGHT
[2019-08-01 19:47] LABS: OVALOCYTES SLIGHT; PLATELET COMMENT ADEQUATE; POIKILOCYTOSIS SLIGHT
[2019-08-01 19:48] LABS: TARGET CELLS 1+
[2019-08-01 19:53] LABS: ALBUMIN 2.2 g/dL (3.5-5.0); ALKALINE PHOSPHATASE 54 U/L (38-126); ANION GAP 9 (5-19); ASPARTATE AMINO TRANSFERASE 51 U/L (14-36); BILIRUBIN,DIRECT 0.6 mg/dL (0.0-0.4); BILIRUBIN,TOTAL 1.2 mg/dL (0.2-1.3); BLOOD UREA NITROGEN 83 mg/dL (7-20); CALCIUM 8.9 mg/dL (8.4-10.2); CARBON DIOXIDE 23 mmol/L (22-30); CHLORIDE 100 mmol/L (98-107); GLUCOSE 111 mg/dL (75-110); POTASSIUM 4.4 mmol/L (3.6-5.0); TOTAL PROTEIN 5.1 g/dL (6.3-8.2)
--- NOTE | 2019-08-01 20:52 | PDOC PROGRESS REPORT ---
Subjective Progress Note for:: 08/01/19 Subjective:: Reviewed patient chart. Patient has squamous cell carcinoma of the lung, obstructive pneumonia, STEMI, and acute worsening of kidney function on top of underlying chronic kidney disease. This morning the patient was taken on the BiPAP and when I saw her she was on n laya cannula. She seems comfortable lying down in bed. She really does not say much and does not really complain much either. She made about 1275 mL of urine for the past 24 hours. Reason For Visit: LARGE MASS IN RIGHT LOWER LOBE Physical Exam Vital Signs: Temp Pulse Resp BP Pulse Ox 97.4 F 91 24 H 98/77 L 99 08/01/19 11:59 08/01/19 11:59 08/01/19 11:59 08/01/19 11:59 08/01/19 11:59 Intake & Output 07/31/19 08/01/19 08/02/19 06:59 06:59 06:59 Intake Total 2180 3142 Output Total 875 1275 Balance 1305 1867 Weight 79.3 kg 80.1 kg 80.1 kg Exam: General appearance: PRESENT: no acute distress, cooperative, appears ill Head exam: PRESENT: atraumatic, normocephalic Eye exam: PRESENT: conjunctiva pale, PERRLA. ABSENT: scleral icterus Neck exam: ABSENT: JVD Respiratory exam: PRESENT: Diminished breath sounds. ABSENT: crackles, rales, rhonchi, unlabored, wheezes Cardiovascular exam: PRESENT: Regular rate rhythm -+S1, +S2. ABSENT: diastolic murmur, systolic murmur GI/Abdominal exam: PRESENT: normal bowel sounds, soft. ABSENT: guarding, mass, tenderness Extremities exam: ABSENT: No edema Neurological exam: PRESENT: alert, awake, oriented to person, place and time. Skin exam: PRESENT: dry, warm, Cardiovascular exam: PRESENT: +S1, +S2 GI/Abdominal exam: PRESENT: normal bowel sounds, soft. ABSENT: organomegaly, tenderness Results Laboratory Results: 08/01/19 02:30 07/31/19 05:43 07/31/19 08/01/19 12:30 02:30 WBC 16.5 H RBC 3.92 Hgb 10.6 L D Hct 30.7 L MCV 78 L MCH 27.0 MCHC 34.6 RDW 19.6 H Plt Count 192 Blood Type B POSITIVE Antibody Screen NEGATIVE 07/28/19 07/28/19 07/28/19 04:02 04:02 09:33 Creatine Kinase 21 L 177 H CK-MB (CK-2) 2.08 Troponin I 0.070 07/28/19 07/28/19 07/28/19 09:33 16:00 16:00 Creatine Kinase 327 H CK-MB (CK-2) 42.40 H 66.50 H Troponin I 2.400 8.200 07/31/19 05:43 Creatine Kinase CK-MB (CK-2) Troponin I 7.020 Impressions: Head MRI 07/17/19 00:00 IMPRESSION: 1. No acute intracranial hemorrhage, mass, or evidence of acute territorial infarct/ischemia. 2. Moderate chronic small vessel ischemic change. EVIDENCE OF ACUTE STROKE: NO. Lung Biopsy CT 07/17/19 11:00 IMPRESSION: Successful CT-guided biopsy of the cavitary mass in the right lower lobe as detailed above. Chest CT 07/23/19 00:00 IMPRESSION: 1. New multifocal areas of ground-glass attenuation in both lungs suspicious for infectious process. Commonly reported imaging features of Covid 19 pneumonia are present. Other processes such as influenza pneumonia and organizing pneumonia, as can be seen with drug toxicity and connective tissue disease, can cause a similar imaging pattern. 2. Cavitary pulmonary mass in the medial right lower lobe is unchanged from prior. Chest X-Ray 07/31/19 00:00 IMPRESSION: Persistent multifocal/ multi-lobar opacities that involve the right upper, left upper and left lower lobes; compared to the radiograph from 07/26/2019, the degree of opacification has decreased. Assessment & Plan - Diagnosis (1) SOBIA (acute kidney injury) Is this a current diagnosis for this admission?: Yes Plan: Possibly due to contrast nephropathy/ATN. Patient is currently nonoliguric. Kidney function seems steady and unchanged. No indication for any acute renal replacement therapy. Due to the patient's multiple comorbid conditions including her squamous cell carcinoma for which no treatment is recommended, patient will not be a candidate for any renal replacement therapy or better acute or chronic. (2) Acute hypoxemic respiratory failure Is this a current diagnosis for this admission?: Yes Plan: She is currently off BiPAP when I saw her and seems comfortable. (3) Squamous cell carcinoma of right lung Is this a current diagnosis for this admission?: Yes Plan: For oncology. (4) Obstructive pneumonia Is this a current diagnosis for this admission?: Yes Plan: On Zosyn and linezolid. (5) Hyponatremia Is this a current diagnosis for this admission?: Yes Plan: Possibly secondary to her squamous cell carcinoma. Currently unchanged and mild. (6) Anemia Qualifiers: Anemia type: other cause Other causes of anemia: acute posthemorrhagic Qualified Code(s): D62 - Acute posthemorrhagic anemia Is this a current diagnosis for this admission?: Yes (7) ST elevation (STEMI) myocardial infarction Qualifiers: Involved coronary artery: unspecified coronary artery Qualified Code(s): I21.3 - ST elevation (STEMI) myocardial infarction of unspecified site Is this a current diagnosis for this admission?: Yes Plan: Per cardiology. (8) Chronic kidney disease (CKD), stage III (moderate) Is this a current diagnosis for this admission?: Yes Plan: Baseline creatinine around 1.3. - Time Time with patient: 15-25 minutes
--- NOTE | 2019-08-01 20:56 | PDOC PROGRESS REPORT ---
Subjective Progress Note for:: 08/01/19 Subjective:: I saw patient by the bedside, patient actually looks much better today compared to previously, the chest x-ray is much improved, patient is no longer requiring BiPAP, she is not requiring only oxygen via nasal cannula, I also spoke to the family about her condition and improvement of her condition, they are looking at hospice choices, it will be still be challenging for treatment for cancer in light of the new acute ST elevated [place] Reason For Visit: LARGE MASS IN RIGHT LOWER LOBE Physical Exam Vital Signs: Temp Pulse Resp BP Pulse Ox 98.2 F 99 30 H 151/75 H 97 08/01/19 19:30 08/01/19 19:30 08/01/19 20:26 08/01/19 19:30 08/01/19 20:26 Intake & Output 07/31/19 08/01/19 08/02/19 06:59 06:59 06:59 Intake Total 2180 3142 999 Output Total 875 1275 600 Balance 1305 1867 399 Weight 79.3 kg 80.1 kg 80.1 kg General appearance: PRESENT: no acute distress Eye exam: PRESENT: PERRLA Respiratory exam: PRESENT: clear to auscultation kenney Cardiovascular exam: PRESENT: +S1, +S2 GI/Abdominal exam: PRESENT: soft Neurological exam: PRESENT: alert Results Laboratory Results: 08/01/19 19:03 08/01/19 19:03 07/31/19 08/01/19 08/01/19 12:30 02:30 19:03 WBC 16.5 H 18.5 H RBC 3.92 3.71 L Hgb 10.6 L D 10.3 L Hct 30.7 L 29.2 L MCV 78 L 79 L MCH 27.0 27.8 MCHC 34.6 35.3 RDW 19.6 H 19.4 H Plt Count 192 215 Seg Neutrophils % Not Reportable Sodium Potassium Chloride Carbon Dioxide Anion Gap BUN Creatinine Est GFR ( Amer) Glucose Calcium Total Bilirubin AST Alkaline Phosphatase Total Protein Albumin Blood Type B POSITIVE Antibody Screen NEGATIVE 08/01/19 19:03 WBC RBC Hgb Hct MCV MCH MCHC RDW Plt Count Seg Neutrophils % Sodium 132.4 L Potassium 4.4 Chloride 100 Carbon Dioxide 23 Anion Gap 9 BUN 83 H Creatinine 1.71 H Est GFR ( Amer) 35 L Glucose 111 H Calcium 8.9 Total Bilirubin 1.2 AST 51 H Alkaline Phosphatase 54 Total Protein 5.1 L Albumin 2.2 L Blood Type Antibody Screen 07/28/19 07/28/19 07/28/19 04:02 04:02 09:33 Creatine Kinase 21 L 177 H CK-MB (CK-2) 2.08 Troponin I 0.070 07/28/19 07/28/19 07/28/19 09:33 16:00 16:00 Creatine Kinase 327 H CK-MB (CK-2) 42.40 H 66.50 H Troponin I 2.400 8.200 07/31/19 05:43 Creatine Kinase CK-MB (CK-2) Troponin I 7.020 Impressions: Head MRI 07/17/19 00:00 IMPRESSION: 1. No acute intracranial hemorrhage, mass, or evidence of acute territorial infarct/ischemia. 2. Moderate chronic small vessel ischemic change. EVIDENCE OF ACUTE STROKE: NO. Lung Biopsy CT 07/17/19 11:00 IMPRESSION: Successful CT-guided biopsy of the cavitary mass in the right lower lobe as detailed above. Chest CT 07/23/19 00:00 IMPRESSION: 1. New multifocal areas of ground-glass attenuation in both lungs suspicious for infectious process. Commonly reported imaging features of Covid 19 pneumonia are present. Other processes such as influenza pneumonia and organizing pneumonia, as can be seen with drug toxicity and connective tissue disease, can cause a similar imaging pattern. 2. Cavitary pulmonary mass in the medial right lower lobe is unchanged from prior. Chest X-Ray 08/01/19 00:00 IMPRESSION: Multicentric pneumonia. Borderline heart size without tung pulm onary edema. Assessment & Plan - Diagnosis (1) Pneumonia Qualifiers: Pneumonia type: due to unspecified organism Laterality: right Lung location: lower lobe of lung Qualified Code(s): J18.9 - Pneumonia, unspecified organism Is this a current diagnosis for this admission?: Yes Plan: Patient is improving (2) Aorto-iliac atherosclerosis Is this a current diagnosis for this admission?: Yes (3) Chronic kidney disease (CKD), stage III (moderate) Is this a current diagnosis for this admission?: Yes (4) Metabolic encephalopathy Is this a current diagnosis for this admission?: Yes (5) Squamous cell carcinoma of right lung Is this a current diagnosis for this admission?: Yes (6) Delirium Is this a current diagnosis for this admission?: Yes (7) Anemia Qualifiers: Anemia type: other cause Other causes of anemia: acute posthemorrhagic Qualified Code(s): D62 - Acute posthemorrhagic anemia Is this a current diagnosis for this admission?: Yes (8) Angiodysplasia of intestine with hemorrhage Is this a current diagnosis for this admission?: Yes (9) Acute hypoxemic respiratory failure Is this a current diagnosis for this admission?: Yes (10) ST elevation (STEMI) myocardial infarction Qualifiers: Involved coronary artery: unspecified coronary artery Qualified Code(s): I21.3 - ST elevation (STEMI) myocardial infarction of unspecified site Is this a current diagnosis for this admission?: Yes (11) SOBIA (acute kidney injury) Is this a current diagnosis for this admission?: Yes - Time Time Spent with patient: 25-34 minutes
[2019-08-01] MEDS: ATORVASTATIN CALCIUM 80 MG TABLET PO SCH (21:25)
[2019-08-02] MEDS: PIPERACILLIN SODIUM/TAZOBACTAM 2.25 GM in NORMAL SALINE 50 ML IV SCH ×5 (00:15→23:37)
[2019-08-02] MEDS: FENOFIBRATE NANOCRYSTALLIZED 145 MG TABLET PO SCH (09:23)
[2019-08-02] MEDS: METOPROLOL SUCCINATE 50 MG TAB.SR.24H PO SCH ×2 (09:23→21:33)
[2019-08-02] MEDS: VALSARTAN 160 MG TABLET PO SCH (09:23)
[2019-08-02] MEDS: HYDROCHLOROTHIAZIDE 25 MG TABLET PO SCH (09:24)
[2019-08-02] MEDS: AMLODIPINE BESYLATE 10 MG TABLET PO SCH (09:25)
[2019-08-02] MEDS: NITROGLYCERIN 15 MG (0.6 MG/1 HR) PATCH.TD24 TD SCH (09:25)
[2019-08-02] MEDS: LINEZOLID 600 MG/300 ML RTUPB IV SCH ×2 (09:27→21:33)
[2019-08-02] MEDS: RINGERS SOLUTION,LACTATED 1,000 ML IV PRN (11:57)
[2019-08-02 14:46] LABS: HEMATOCRIT 24.8 % (36.0-47.0); HEMOGLOBIN 8.9 g/dL (12.0-15.5); MEAN CORPUSCULAR HEMOGLOBIN 28.5 pg (27.0-33.4); MEAN CORPUSCULAR HGB CONC 35.7 g/dL (32.0-36.0); MEAN CORPUSCULAR VOLUME 80 fl (80-97); PLATELET COUNT 190 10^3/uL (150-450); RED BLOOD COUNT 3.11 10^6/uL (3.72-5.28); RED CELL DISTRIBUTION WIDTH 19.6 % (11.5-14.0); WHITE BLOOD COUNT 17.4 10^3/uL (4.0-10.5)
[2019-08-02 15:06] LABS: ALBUMIN 2.2 g/dL (3.5-5.0); ALKALINE PHOSPHATASE 56 U/L (38-126); ANION GAP 8 (5-19); ASPARTATE AMINO TRANSFERASE 43 U/L (14-36); BILIRUBIN,DIRECT 0.4 mg/dL (0.0-0.4); BILIRUBIN,TOTAL 0.8 mg/dL (0.2-1.3); BLOOD UREA NITROGEN 78 mg/dL (7-20); CALCIUM 8.9 mg/dL (8.4-10.2); CARBON DIOXIDE 25 mmol/L (22-30); CHLORIDE 102 mmol/L (98-107); GLUCOSE 103 mg/dL (75-110); POTASSIUM 4.6 mmol/L (3.6-5.0); TOTAL PROTEIN 4.8 g/dL (6.3-8.2)
[2019-08-02 15:23] LABS: ABSOLUTE LYMPHOCYTES# (MANUAL) 1.7 10^3/uL (0.5-4.7); ABSOLUTE MONOCYTES # (MANUAL) 0.5 10^3/uL (0.1-1.4); ANISOCYTOSIS 1+; BASOPHILS % (MANUAL) 0 % (0-2); EOSINOPHILS % (MANUAL) 1 % (0-6); LYMPHOCYTES % (MANUAL) 10 % (13-45); MONOCYTES % (MANUAL) 3 % (3-13); PLATELET COMMENT ADEQUATE; SEGMENTED NEUTROPHILS % (MAN) 86 % (42-78); TOTAL CELLS COUNTED 100
[2019-08-02 15:24] LABS: POIKILOCYTOSIS 1+; TARGET CELLS 1+
--- NOTE | 2019-08-02 16:45 | PDOC PROGRESS REPORT ---
Subjective Progress Note for:: 08/02/19 Subjective:: Patient seen by the bedside, the pneumonia is improving, she is extremely deconditioned. I had a long discussion with patient's family in the office today, we discussed all the options including hospice and also discharged home without hospice. I recommended hospice care for this patient because she recently sustained acute ST elevated myocardial infarction with ischemic cardiomyopathy, the ejection fraction estimate 35%. She also has other comorbidities including chronic kidney disease stage III.GI tract angiodysplasia,Family is yet to settle for hospice care, they want to seek second opinion, I encouraged them to do that but I explained to them that I do not think any oncologist will want to treat this patient that recently sustained an acute ST elevated myocardial infarction also with very poor function, she is very short of breath on exertion, she has cardiomyopathy, relatively large size squamous cell lung cancer, severe deconditioning,She was also seen in consultation by the oncologist Dr. Jean, she is also of the opinion that patient should be transitioned to hospice care Reason For Visit: LARGE MASS IN RIGHT LOWER LOBE Physical Exam Vital Signs: Temp Pulse Resp BP Pulse Ox 97.4 F 91 16 126/73 H 100 08/02/19 07:59 08/02/19 14:00 08/02/19 08:16 08/02/19 07:59 08/02/19 08:16 Intake & Output 08/01/19 08/02/19 08/03/19 06:59 06:59 06:59 Intake Total 3142 1749 1000 Output Total 1275 1300 Balance 0952 686 7837 Weight 80.1 kg 79.5 kg General appearance: PRESENT: no acute distress Eye exam: PRESENT: PERRLA Respiratory exam: PRESENT: clear to auscultation kenney Cardiovascular exam: PRESENT: +S1, +S2 GI/Abdominal exam: PRESENT: soft Results Laboratory Results: 08/02/19 14:26 08/02/19 14:26 08/01/19 08/01/19 08/02/19 19:03 19:03 14:26 WBC 18.5 H 17.4 H RBC 3.71 L 3.11 L Hgb 10.3 L 8.9 L Hct 29.2 L 24.8 L MCV 79 L 80 MCH 27.8 28.5 MCHC 35.3 35.7 RDW 19.4 H 19.6 H Plt Count 215 190 Seg Neutrophils % Not Reportable Not Reportable Sodium 132.4 L Potassium 4.4 Chloride 100 Carbon Dioxide 23 Anion Gap 9 BUN 83 H Creatinine 1.71 H Est GFR ( Amer) 35 L Glucose 111 H Calcium 8.9 Total Bilirubin 1.2 AST 51 H Alkaline Phosphatase 54 Total Protein 5.1 L Albumin 2.2 L 08/02/19 14:26 WBC RBC Hgb Hct MCV MCH MCHC RDW Plt Count Seg Neutrophils % Sodium 134.6 L Potassium 4.6 Chloride 102 Carbon Dioxide 25 Anion Gap 8 BUN 78 H Creatinine 1.62 H Est GFR ( Amer) 38 L Glucose 103 Calcium 8.9 Total Bilirubin 0.8 AST 43 H Alkaline Phosphatase 56 Total Protein 4.8 L Albumin 2.2 L 07/28/19 07/28/19 07/28/19 04:02 04:02 09:33 Creatine Kinase 21 L 177 H CK-MB (CK-2) 2.08 Troponin I 0.070 07/28/19 07/28/19 07/28/19 09:33 16:00 16:00 Creatine Kinase 327 H CK-MB (CK-2) 42.40 H 66.50 H Troponin I 2.400 8.200 07/31/19 05:43 Creatine Kinase CK-MB (CK-2) Troponin I 7.020 Impressions: Head MRI 07/17/19 00:00 IMPRESSION: 1. No acute intracranial hemorrhage, mass, or evidence of acute territorial in farct/ischemia. 2. Moderate chronic small vessel ischemic change. EVIDENCE OF ACUTE STROKE: NO. Lung Biopsy CT 07/17/19 11:00 IMPRESSION: Successful CT-guided biopsy of the cavitary mass in the right lower lobe as detailed above. Chest CT 07/23/19 00:00 IMPRESSION: 1. New multifocal areas of ground-glass attenuation in both lungs suspicious for infectious process. Commonly reported imaging features of Covid 19 pneumonia are present. Other processes such as influenza pneumonia and organizing pneumonia, as can be seen with drug toxicity and connective tissue disease, can cause a similar imaging pattern. 2. Cavitary pulmonary mass in the medial right lower lobe is unchanged from prior. Chest X-Ray 08/01/19 00:00 IMPRESSION: Multicentric pneumonia. Borderline heart size without tung pulmonary edema. Assessment & Plan - Diagnosis (1) Pneumonia Qualifiers: Pneumonia type: due to unspecified organism Laterality: right Lung location: lower lobe of lung Qualified Code(s): J18.9 - Pneumonia, unspecified organism Is this a current diagnosis for this admission?: Yes Plan: Patient continues to improve with antibiotic therapy (2) Aorto-iliac atherosclerosis Is this a current diagnosis for this admission?: Yes (3) Chronic kidney disease (CKD), stage III (moderate) Is this a current diagnosis for this admission?: Yes (4) Metabolic encephalopathy Is this a current diagnosis for this admission?: Yes (5) Squamous cell carcinoma of right lung Is this a current diagnosis for this admission?: Yes (6) Delirium Is this a current diagnosis for this admission?: Yes (7) Anemia Qualifiers: Anemia type: other cause Other causes of anemia: acute posthemorrhagic Qualified Code(s): D62 - Acute posthemorrhagic anemia Is this a current diagnosis for this admission?: Yes (8) Angiodysplasia of intestine with hemorrhage Is this a current diagnosis for this admission?: Yes (9) Acute hypoxemic respiratory failure Is this a current diagnosis for this admission?: Yes (10) ST elevation (STEMI) myocardial infarction Qualifiers: Involved coronary artery: unspecified coronary artery Qualified Code(s): I21.3 - ST elevation (STEMI) myocardial infarction of unspecified site Is this a current diagnosis for this admission?: Yes (11) SOBIA (acute kidney injury) Is this a current diagnosis for this admission?: Yes (12) Ischemic cardiomyopathy Is this a current diagnosis for this admission?: Yes - Time Time Spent with patient: 35 or more minutes Level of Care: IMCU
[2019-08-02] MEDS: PRAMIPEXOLE DI-HCL 0.25 MG TABLET PO SCH (17:36)
--- NOTE | 2019-08-02 19:55 | Progress Note ---
Provider Note Provider Note: CARDIOLOGY PROGRESS NOTE by Dr. Sandi Monge on 08/02/2019. SUBJECTIVE: The patient is been able to take off the BiPAP and is on nasal cannula but she still appears short of breath with even minimal activity. She denies any chest pain or discomfort. There is no PND orthopnea. There is no arrhythmia seen on the monitor. The patient hemoglobin again is dropped to 8.9 from 10.6 yesterday. Renal function is marginally improved. PHYSICAL EXAMINATION: The patient appears to be a frail build and appears to be chronically ill and malnourished. Selected Entries 08/02/19 08/02/19 08/02/19 07:59 08:16 12:16 Temperature 97.4 F Temperature Axillary Source Pulse Rate 83 89 Respiratory 25 H 20 Rate Blood Pressure 126/73 H 132/61 H Blood Pressure 90 84 Mean BP Location Left Arm Right Arm BP Position Supine Supine O2 Sat by Pulse 100 97 Oximetry Fraction of 45 Inspired Oxygen (FIO2) Oxygen Flow 4.00 Rate Oxygen Delivery Bipap Nasal Cannula Method 08/02/19 12:42 Temperature Temperature Source Pulse Rate Respiratory Rate Blood Pressure Blood Pressure Mean BP Location BP Position O2 Sat by Pulse Oximetry Fraction of 45 Inspired Oxygen (FIO2) Oxygen Flow Rate Oxygen Delivery Method HEAD: Is atraumatic normocephalic. EYES: Pupils equal round regular reactive to light and accommodation. There is mild conjunctival pallor. There is no scleral icterus. ENT is negative the patient is on BiPAP. NECK: Supple. There is no JVD. Carotids are equal there is no bruits. There is no lymphadenopathy. There is no goiter. THERE is no accessory muscles of respiration use. Trachea central. LUNGS: Shows decreased breath sounds and dry crackles in the right base. There is a few scattered rhonchi bilaterally. There is no wheezing. HEART: S1-S2 is heard. There is no S3 gallop. There is no S4 gallop. There is systolic murmur in the left sternal border and the apex there is no cardiac rub. ABDOMEN: Soft. Nontender. There is no hepatosplenomegaly. Bowel sounds are well heard. EXTREMITIES: Femorals are diminished. There is no femoral bruits. Leg pulses are diminished. There is no pedal edema. There is no DVT or cellulitis. There is no pedal edema. There is no cyanosis or clubbing. 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 She moves all 4 extremities. PSYCHIATRIC:. The patient does not appear to be appear to be agitated or anxious. Labs- All tests 24 hr 08/02/19 08/02/19 14:26 14:26 WBC 17.4 H RBC 3.11 L Hgb 8.9 L Hct 24.8 L MCV 80 MCH 28.5 MCHC 35.7 RDW 19.6 H Plt Count 190 Lymph % (Auto) Not Reportable [place] % (Auto) Not Reportable Eos % (Auto) Not Reportable Baso % (Auto) Not Reportable Absolute Neuts (auto) Not Reportable Absolute Lymphs (auto) Not Reportable Absolute Monos (auto) Not Reportable Absolute Eos (auto) Not Reportable Absolute Basos (auto) Not Reportable Total Counted 100 Seg Neutrophils % Not Reportable Seg Neuts % (Manual) 86 H Lymphocytes % (Manual) 10 L Monocytes % (Manual) 3 Eosinophils % (Manual) 1 Basophils % (Manual) 0 Abs Neuts (Manual) 15.0 H Abs Lymphs (Manual) 1.7 Abs Monocytes (Manual) 0.5 Absolute Eos (Manual) 0.2 Abs Basophils (Manual) 0.0 Platelet Comment ADEQUATE Poikilocytosis 1+ Anisocytosis 1+ Microcytosis SLIGHT Target Cells 1+ Sodium 134.6 L Potassium 4.6 Chloride 102 Carbon Dioxide 25 Anion Gap 8 BUN 78 H Creatinine 1.62 H Est GFR ( Amer) 38 L Est GFR (MDRD) Non-Af 31 L Glucose 103 Calcium 8.9 Total Bilirubin 0.8 Direct Bilirubin 0.4 Neonat Total Bilirubin Not Reportable Neonat Direct Bilirubin Not Reportable Neonat Indirect Bili Not Reportable AST 43 H ALT 16 Alkaline Phosphatase 56 Total Protein 4.8 L Albumin 2.2 L Chest X-Ray 07/17/19 00:00 IMPRESSION: 1. No postprocedural pneumothorax. 2. New parenchymal opacity in the left upper lobe - correlate with clinical findings to exclude a pneumonia. Chest X-Ray 07/17/19 00:00 IMPRESSION: No postprocedural pneumothorax. Head MRI 07/17/19 00:00 IMPRESSION: 1. No acute intracranial hemorrhage, mass, or evidence of acute territorial infarct/ischemia. 2. Moderate chronic small vessel ischemic change. EVIDENCE OF ACUTE STROKE: NO. Lung Biopsy CT 07/17/19 11:00 IMPRESSION: Successful CT-guided biopsy of the cavitary mass in the right lower lobe as detailed above. Chest X-Ray 07/20/19 00:00 IMPRESSION: Rehydration versus progressing pneumonia or metastatic disease in the left upper lobe. Chest CT 07/23/19 00:00 IMPRESSION: 1. New multifocal areas of ground-glass attenuation in both lungs suspicious for infectious process. Commonly reported imaging features of Covid 19 pneumonia are present. Other processes such as influenza pneumonia and organizing pneumonia, as can be seen with drug toxicity and connective tissue disease, can cause a similar imaging pattern. 2. Cavitary pulmonary mass in the medial right lower lobe is unchanged from prior. Chest X-Ray 07/26/19 00:00 IMPRESSION: Bilateral infiltrates, similar to the CT on 07/23/2019 Chest X-Ray 07/31/19 00:00 IMPRESSION: Persistent multifocal/ multi-lobar opacities that involve the right upper, left upper and left lower lobes; compared to the radiograph from 07/26/2019, the degree of opacification has decreased. Chest X-Ray 08/01/19 00:00 IMPRESSION: Multicentric pneumonia. Borderline heart size without tung pulmonary edema. IMPRESSION/RECOMMENDATION: 1. Acute inferior wall ST segment elevation RI the patient is not having any chest pain or discomfort. We will continue the patient's aspirin, Toprol-XL, and ARB. As mentioned earlier anticoagulation is a relative contraindication in this patient at present. This is for reasons mentioned earlier. Will continue topical nitrates. The patient most likely has underlying coronary artery disease since the patient is a prior history of RI. But the precipitating factor seems to be hypoxemia. Hypoxemia resolved on BiPAP. 2. Anemia. Hemoglobin is dropped to 7.9 hence there is ongoing GI bleed. Hence would recommend decrease the patient's aspirin to 81 mg p.o. daily instead of 325 mg p.o. daily. Also would transfuse the patient to keep the hemoglobin 10 or above. 3, Acute hypoxemic respiratory failure secondary to patient's lung cancer and pneumonia. 4. Right lower lobe lung cancer: Oncology on the case 5. Right lower lobe postobstructive pneumonia: Continue antibiotics 6. Ischemic cardiomyopathy with moderately reduced LV ejection fraction. We will see if we can reinstitute the patient's beta-leslie and ZOFIA inhibitor. 7. Solitary kidney with atrophic right kidney. 8. Acute on chronic kidney disease stage III: Avoid nephrotoxic drugs. Joseph carver's GFR is marginally improved from 35-38. 9. Hypertension: Blood pressure appears to be good. 10. Coronary artery disease by history: Old myocardial infarction most likely incomplete old inferior RI. 11.History of GI bleed and anemia. Medications reviewed. Medications changed. Medical regimen and management plan will be discussed with Dr. Alfredo. Medical decision making is of moderate complexity. Medications adjusted. 40 minutes spent as patient more than 50% of time spent in direct patient care. In view of the patient's cancer, renal failure, anemia, and recent non-ST elevation RI patient's prognosis very poor and guarded.. Will follow.
[2019-08-02] MEDS: ATORVASTATIN CALCIUM 80 MG TABLET PO SCH (21:33)
[2019-08-03] MEDS: RINGERS SOLUTION,LACTATED 1,000 ML IV PRN ×2 (04:38→23:35)
[2019-08-03] MEDS: PIPERACILLIN SODIUM/TAZOBACTAM 2.25 GM in NORMAL SALINE 50 ML IV SCH ×4 (05:17→23:32)
[2019-08-03] MEDS: AMLODIPINE BESYLATE 10 MG TABLET PO SCH (10:01)
[2019-08-03] MEDS: NITROGLYCERIN 15 MG (0.6 MG/1 HR) PATCH.TD24 TD SCH (10:01)
[2019-08-03] MEDS: VALSARTAN 160 MG TABLET PO SCH (10:01)
[2019-08-03] MEDS: FENOFIBRATE NANOCRYSTALLIZED 145 MG TABLET PO SCH (10:01)
[2019-08-03] MEDS: HYDROCHLOROTHIAZIDE 25 MG TABLET PO SCH (10:01)
[2019-08-03] MEDS: METOPROLOL SUCCINATE 50 MG TAB.SR.24H PO SCH ×2 (10:01→21:25)
[2019-08-03] MEDS: LINEZOLID 600 MG/300 ML RTUPB IV SCH ×2 (10:02→21:26)
[2019-08-03 10:11] LABS: HEMATOCRIT 22.6 % (36.0-47.0); MEAN CORPUSCULAR HEMOGLOBIN 27.6 pg (27.0-33.4); MEAN CORPUSCULAR HGB CONC 34.6 g/dL (32.0-36.0); MEAN CORPUSCULAR VOLUME 80 fl (80-97); PLATELET COUNT 184 10^3/uL (150-450); RED BLOOD COUNT 2.83 10^6/uL (3.72-5.28); WHITE BLOOD COUNT 16.1 10^3/uL (4.0-10.5)
[2019-08-03 10:34] LABS: ANION GAP 9 (5-19); BLOOD UREA NITROGEN 76 mg/dL (7-20); CALCIUM 8.7 mg/dL (8.4-10.2); CARBON DIOXIDE 22 mmol/L (22-30); CHLORIDE 104 mmol/L (98-107); GLUCOSE 107 mg/dL (75-110); POTASSIUM 4.3 mmol/L (3.6-5.0)
[2019-08-03 10:46] LABS: HEMOGLOBIN 7.8 g/dL (12.0-15.5)
--- NOTE | 2019-08-03 12:20 | Progress Note ---
Provider Note Provider Note: I was not able to reach family today. I discussed her care with Dr. Crawford. I also reviewed all notes, labs, etc. Patient continues to have heme positive stool and decreasing HGB. I do not believe any treatment other than continued transfusion support is indicated in this situation. She is off all ASA or any other anticoagulants. Although reports show that her pneumonia is clearing, I do not believe she will fully recover from this unless the obstruction from the tumor is cleared. She is not strong enough to withstand any aggressive treatment for her cancer at present. I will be happy to try to arrange another family meeting to help try to arrange Hospice. Just let me know.
--- NOTE | 2019-08-03 13:20 | Progress Note ---
Provider Note Provider Note: 77-year-old female with known diagnosed squamous lung cancer. Has been in the hospital for deteriorating status has recently had an acute myocardial infarction. She was noted to have a drop in hemoglobin and consultation was made with surgery by Dr. Alfredo for possible colonoscopy. However there is suspected COVID-19 patient and would require general anesthesia for her colonoscopy and or upper endoscopy. Therefore because of her high risk and recent myocardial infarction suggested that she be transfused for her anemia and would forego any invasive procedures at this time. I have discussed this with Dr. Alfredo and Dr. Tolbert they both agree. Please reconsult surgery if necessary.
--- NOTE | 2019-08-03 14:51 | Progress Note ---
Provider Note Provider Note: CARDIOLOGY PROGRESS NOTE by Dr. Junior On 08/03/2019. SUBJECTIVE: The patient continues to have ongoing GI bleed and is receiving blood transfusion. She denies any chest pain. She appears to be short of breath, and is back on the BiPAP, but there is no PND orthopnea. There is no arrhythmia seen on the monitor. Surgeon has seen her and he has deemed that she is very high risk for any invasive procedures at this time. Also oncology has opined that not much treatment options are available for the patient. The patient's cardiac medications have been maximized although the patient cannot be on aspirin due to ongoing GI bleed. PHYSICAL EXAMINATION: The patient is a frail build and appears to be chronically ill and malnourished. She is in mild respiratory distress she is back on the BiPAP. Selected Entries 08/03/19 08:11 Temperature 97.7 F Temperature Axillary Source Pulse Rate 88 Respiratory 25 H Rate Blood Pressure 136/74 H Blood Pressure 94 Mean BP Location Right Arm BP Position Supine O2 Sat by Pulse 100 Oximetry Oxygen Delivery Bipap Method Percent of 35 Oxygen HEAD: Is atraumatic normocephalic. EYES: Pupils equal round regular reactive to light and accommodation. There is mild conjunctival pallor. There is no scleral icterus. ENT is negative the patient is on BiPAP. NECK: Supple. There is no JVD. Carotids are equal there is no bruits. There is no lymphadenopathy. There is no goiter. THERE is no accessory muscles of respiration use. Trachea central. LUNGS: Shows decreased breath sounds and dry crackles in the right base. There is a few scattered rhonchi bilaterally. There is no wheezing. HEART: S1-S2 is heard. There is no S3 gallop. There is no S4 gallop. There is systolic murmur in the left sternal border and the apex there is no cardiac rub. ABDOMEN: Soft. Nontender. There is no hepatosplenomegaly. Bowel sounds are well heard. EXTREMITIES: Femorals are diminished. There is no femoral bruits. Leg pulses are diminished. There is no pedal edema. There is no DVT or cellulitis. There is no pedal edema. There is no cyanosis or clubbing. 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 She moves all 4 extremities. PSYCHIATRIC:. The patient does not appear to be appear to be agitated or anxious. Labs- All tests 24 hr 07/31/19 08/03/19 08/03/19 12:30 09:57 09:57 WBC 16.1 H RBC 2.83 L Hgb 7.8 L Hct 22.6 L MCV 80 MCH 27.6 MCHC 34.6 RDW 20.0 H Plt Count 184 Sodium 134.7 L Potassium 4.3 Chloride 104 Carbon Dioxide 22 Anion Gap 9 BUN 76 H Creatinine 1.40 H Est GFR ( Amer) 45 L Est GFR (MDRD) Non-Af 37 L Glucose 107 Calcium 8.7 Blood Type Antibody Screen Crossmatch See Detail 08/03/19 08/03/19 11:58 20:10 WBC 18.2 H RBC 3.54 L Hgb 9.9 L D Hct 28.7 L MCV 81 MCH 28.0 MCHC 34.6 RDW 18.2 H Plt Count 180 Sodium Potassium Chloride Carbon Dioxide Anion Gap BUN Creatinine Est GFR ( Amer) Est GFR (MDRD) Non-Af Glucose Calcium Blood Type B POSITIVE Antibody Screen NEGATIVE Crossmatch See Detail Chest X-Ray 07/17/19 00:00 IMPRESSION: 1. No postprocedural pneumothorax. 2. New parenchymal opacity in the left upper lobe - correlate with clinical findings to exclude a pneumonia. Chest X-Ray 07/17/19 00:00 IMPRESSION: No postprocedural pneumothorax. Head MRI 07/17/19 00:00 IMPRESSION: 1. No acute intracranial hemorrhage, mass, or evidence of acute territorial infarct/ischemia. 2. Moderate chronic small vessel ischemic change. EVIDENCE OF ACUTE STROKE: NO. Lung Biopsy CT 07/17/19 11:00 IMPRESSION: Successful CT-guided biopsy of the cavitary mass in the right lower lobe as detailed above. Chest X-Ray 07/20/19 00:00 IMPRESSION: Rehydration versus progressing pneumonia or metastatic disease in the left upper lobe. Chest CT 07/23/19 00:00 IMPRESSION: 1. New multifocal areas of ground-glass attenuation in both lungs suspicious for infectious process. Commonly reported imaging features of Covid 19 pneumonia are present. Other processes such as influenza pneumonia and organizing pneumonia, as can be seen with drug toxicity and connective tissue disease, can cause a similar imaging pattern. 2. Cavitary pulmonary mass in the medial right lower lobe is unchanged from prior. Chest X-Ray 07/26/19 00:00 IMPRESSION: Bilateral infiltrates, similar to the CT on 07/23/2019 Chest X-Ray 07/31/19 00:00 IMPRESSION: Persistent multifocal/ multi-lobar opacities that involve the right upper, left upper and left lower lobes; compared to the radiograph from 07/26/2019, the degree of opacification has decreased. Chest X-Ray 08/01/19 00:00 IMPRESSION: Multicentric pneumonia. Borderline heart size without tung pulmonary edema. IMPRESSION/RECOMMENDATION: 1. Acute inferior wall ST segment elevation NE the patient is not having any chest pain or discomfort. We will continue the patient's aspirin, Toprol-XL, and ARB. As mentioned earlier anticoagulation is a relative contraindication in this patient at present. This is for reasons mentioned earlier. Will continue topical nitrates. The patient most likely has underlying coronary artery disease since the patient is a prior history of NE. But the precipitating factor seems to be hypoxemia. Hypoxemia resolved on BiPAP. 2. Anemia. Hemoglobin is dropped to 7.9 hence there is ongoing GI bleed. Hence would recommend decrease the patient's aspirin to 81 mg p.o. daily instead of 325 mg p.o. daily. Also would transfuse the patient to keep the hemoglobin 10 or above. 3, Acute hypoxemic respiratory failure secondary to patient's lung cancer and pneumonia. 4. Right lower lobe lung cancer: Oncology on the case 5. Right lower lobe postobstructive pneumonia: Continue antibiotics 6. Ischemic cardiomyopathy with moderately reduced LV ejection fraction. We will see if we can reinstitute the patient's beta-leslie and ZOFIA inhibitor. 7. Solitary kidney with atrophic right kidney. 8. Acute on chronic kidney disease stage III: Avoid nephrotoxic drugs. Patient's GFR is marginally improved from 35-38. 9. Hypertension: Blood pressure appears to be good. 10. Coronary artery disease by history: Old myocardial infarction most likely incomplete old inferior NE. 11.History of GI bleed and anemia. Medications reviewed. Medications changed. Medical regimen and management plan will be discussed with Dr. Alfredo. Medical decision making is of moderate complexity. Medications adjusted. 40 minutes spent as patient more than 50% of time spent in direct patient care. In view of the patient's cancer, renal failure, anemia, and recent non-ST elevation NE patient's prognosis very poor and guarded.. Much to offer from cardiology. Hence will sign off. This will be discussed with Dr. Alfredo.
[2019-08-03] MEDS: PRAMIPEXOLE DI-HCL 0.25 MG TABLET PO SCH (17:50)
[2019-08-03 20:26] LABS: HEMATOCRIT 28.7 % (36.0-47.0); MEAN CORPUSCULAR HGB CONC 34.6 g/dL (32.0-36.0); MEAN CORPUSCULAR VOLUME 81 fl (80-97); PLATELET COUNT 180 10^3/uL (150-450); RED BLOOD COUNT 3.54 10^6/uL (3.72-5.28); RED CELL DISTRIBUTION WIDTH 18.2 % (11.5-14.0); WHITE BLOOD COUNT 18.2 10^3/uL (4.0-10.5)
--- NOTE | 2019-08-03 20:30 | PDOC PROGRESS REPORT ---
Subjective Progress Note for:: 08/03/19 Subjective:: Patient seen at bedside, she is short of breath at baseline, she is not a candidate for aggressive treatment for cancer, family came to my office today to indicate that they have decided to seek a second opinion, I explained to them that there is no more indication for hospital transfer and that she can be discharged home and family can seek second opinion from any oncologist of their choice, She has been transfused with red blood cells, family requested for consu ltation for GI endoscopy, I consulted the surgeon and he declined to do EGD, I agreed with the surgeon decision not to do EGD because she is a high risk for complication and decompensation.She will need a wheelchair Reason For Visit: LARGE MASS IN RIGHT LOWER LOBE Physical Exam Vital Signs: Temp Pulse Resp BP Pulse Ox 98.1 F 117 H 16 146/78 H 97 08/03/19 17:40 08/03/19 19:00 08/03/19 17:40 08/03/19 17:40 08/03/19 17:40 Intake & Output 08/02/19 08/03/19 08/04/19 06:59 06:59 06:59 Intake Total 1749 3098 1100 Output Total 1300 1750 1550 Balance 449 1348 -450 Weight 79.5 kg 70.3 kg General appearance: PRESENT: no acute distress Eye exam: PRESENT: PERRLA Respiratory exam: PRESENT: rhonchi Cardiovascular exam: PRESENT: +S1, +S2 GI/Abdominal exam: PRESENT: soft Neurological exam: PRESENT: alert Results Laboratory Results: 08/03/19 09:57 08/03/19 08/03/19 08/03/19 09:57 09:57 11:58 WBC 16.1 H RBC 2.83 L Hgb 7.8 L Hct 22.6 L MCV 80 MCH 27.6 MCHC 34.6 RDW 20.0 H Plt Count 184 Sodium 134.7 L Potassium 4.3 Chloride 104 Carbon Dioxide 22 Anion Gap 9 BUN 76 H Creatinine 1.40 H Est GFR ( Amer) 45 L Glucose 107 Calcium 8.7 Blood Type B POSITIVE Antibody Screen NEGATIVE 07/28/19 07/28/19 07/28/19 04:02 04:02 09:33 Creatine Kinase 21 L 177 H CK-MB (CK-2) 2.08 Troponin I 0.070 07/28/19 07/28/19 07/28/19 09:33 16:00 16:00 Creatine Kinase 327 H CK-MB (CK-2) 42.40 H 66.50 H Troponin I 2.400 8.200 07/31/19 05:43 Creatine Kinase CK-MB (CK-2) Troponin I 7.020 Impressions: Head MRI 07/17/19 00:00 IMPRESSION: 1. No acute intracranial hemorrhage, mass, or evidence of acute territorial infarct/ischemia. 2. Moderate chronic small vessel ischemic change. EVIDENCE OF ACUTE STROKE: NO. Lung Biopsy CT 07/17/19 11:00 IMPRESSION: Successful CT-guided biopsy of the cavitary mass in the right lower lobe as detailed above. Chest CT 07/23/19 00:00 IMPRESSION: 1. New multifocal areas of ground-glass attenuation in both lungs suspicious for infectious process. Commonly reported imaging features of Covid 19 pneumonia are present. Other processes such as influenza pneumonia and organizing pneumonia, as can be seen with drug toxicity and connective tissue disease, can cause a similar imaging pattern. 2. Cavitary pulmonary mass in the medial right lower lobe is unchanged from prior. Chest X-Ray 08/01/19 00:00 IMPRESSION: Multicentric pneumonia. Borderline heart size without tung pulmonary edema. Assessment & Plan - Diagnosis (1) Pneumonia Qualifiers: Pneumonia type: due to unspecified organism Laterality: right Lung location: lower lobe of lung Qualified Code(s): J18.9 - Pneumonia, unspecified organism Is this a current diagnosis for this admission?: Yes (2) Aorto-iliac atherosclerosis Is this a current diagnosis for this admission?: Yes (3) Chronic kidney disease (CKD), stage III (moderate) Is this a current diagnosis for this admission?: Yes (4) Metabolic encephalopathy Is this a current diagnosis for this admission?: Yes (5) Squamous cell carcinoma of right lung Is this a current diagnosis for this admission?: Yes (6) Delirium Is this a current diagnosis for this admission?: Yes (7) Anemia Qualifiers: Anemia type: other cause Other causes of anemia: acute posthemorrhagic Qualified Code(s): D62 - Acute posthemorrhagic anemia Is this a current diagnosis for this admission?: Yes (8) Angiodysplasia of intestine with hemorrhage Is this a current diagnosis for this admission?: Yes (9) Acute hypoxemic respiratory failure Is this a current diagnosis for this admission?: Yes (10) ST elevation (STEMI) myocardial infarction Qualifiers: Involved coronary artery: unspecified coronary artery Qualified Code(s): I21.3 - ST elevation (STEMI) myocardial infarction of unspecified site Is this a current diagnosis for this admission?: Yes (11) SOBIA (acute kidney injury) Is this a current diagnosis for this admission?: Yes (12) Ischemic cardiomyopathy Is this a current diagnosis for this admission?: Yes - Time Time Spent with patient: 25-34 minutes Level of Care: IMCU - Plan Summary Plan Summary: Patient is ready for discharge with wheelchair
[2019-08-03 20:33] LABS: HEMOGLOBIN 9.9 g/dL (12.0-15.5)
[2019-08-03] MEDS: ATORVASTATIN CALCIUM 80 MG TABLET PO SCH (21:25)
[2019-08-04] MEDS: PIPERACILLIN SODIUM/TAZOBACTAM 2.25 GM in NORMAL SALINE 50 ML IV SCH ×4 (05:47→23:02)
[2019-08-04] MEDS: HYDROCHLOROTHIAZIDE 25 MG TABLET PO SCH (09:06)
[2019-08-04] MEDS: VALSARTAN 160 MG TABLET PO SCH (09:07)
[2019-08-04] MEDS: METOPROLOL SUCCINATE 50 MG TAB.SR.24H PO SCH ×2 (09:07→21:33)
[2019-08-04] MEDS: FENOFIBRATE NANOCRYSTALLIZED 145 MG TABLET PO SCH (09:07)
[2019-08-04] MEDS: AMLODIPINE BESYLATE 10 MG TABLET PO SCH (09:07)
[2019-08-04] MEDS: LINEZOLID 600 MG/300 ML RTUPB IV SCH ×2 (09:12→21:33)
[2019-08-04] MEDS: NITROGLYCERIN 15 MG (0.6 MG/1 HR) PATCH.TD24 TD SCH (09:13)
[2019-08-04] MEDS: RINGERS SOLUTION,LACTATED 1,000 ML IV PRN (14:19)
[2019-08-04] MEDS: PRAMIPEXOLE DI-HCL 0.25 MG TABLET PO SCH (17:59)
--- NOTE | 2019-08-04 20:21 | PDOC PROGRESS REPORT ---
Subjective Progress Note for:: 08/04/19 Subjective:: Patient seen by the bedside, she presently as optimized hospital care she will be discharged home tomorrow. Reason For Visit: LARGE MASS IN RIGHT LOWER LOBE Physical Exam Vital Signs: Temp Pulse Resp BP Pulse Ox 97.5 F 118 H 18 140/79 H 97 08/04/19 16:20 08/04/19 19:00 08/04/19 16:20 08/04/19 16:20 08/04/19 16:20 Intake & Output 08/03/19 08/04/19 08/05/19 06:59 06:59 06:59 Intake Total 3098 1700 1400 Output Total 1750 2250 1025 Balance 1348 -550 375 Weight 70.3 kg 70.2 kg 70.2 kg General appearance: PRESENT: no acute distress Respiratory exam: PRESENT: clear to auscultation kenney Cardiovascular exam: PRESENT: +S1, +S2 GI/Abdominal exam: PRESENT: soft Neurological exam: PRESENT: alert Results Laboratory Results: 08/03/19 20:10 08/03/19 09:57 08/03/19 20:10 WBC 18.2 H RBC 3.54 L Hgb 9.9 L D Hct 28.7 L MCV 81 MCH 28.0 MCHC 34.6 RDW 18.2 H Plt Count 180 07/28/19 07/28/19 07/28/19 04:02 04:02 09:33 Creatine Kinase 21 L 177 H CK-MB (CK-2) 2.08 Troponin I 0.070 07/28/19 07/28/19 07/28/19 09:33 16:00 16:00 Creatine Kinase 327 H CK-MB (CK-2) 42.40 H 66.50 H Troponin I 2.400 8.200 07/31/19 05:43 Creatine Kinase CK-MB (CK-2) Troponin I 7.020 Impressions: Head MRI 07/17/19 00:00 IMPRESSION: 1. No acute intracranial hemorrhage, mass, or evidence of acute territorial infarct/ischemia. 2. Moderate chronic small vessel ischemic change. EVIDENCE OF ACUTE STROKE: NO. Lung Biopsy CT 07/17/19 11:00 IMPRESSION: Successful CT-guided biopsy of the cavitary mass in the right lower lobe as detailed above. Chest CT 07/23/19 00:00 IMPRESSION: 1. New multifocal areas of ground-glass attenuation in both lungs suspicious for infectious process. Commonly reported imaging features of Covid 19 pneumonia are present. Other processes such as influenza pneumonia and organizing pneumonia, as can be seen with drug toxicity and connective tissue disease, can cause a similar imaging pattern. 2. Cavitary pulmonary mass in the medial right lower lobe is unchanged from prior. Chest X-Ray 08/01/19 00:00 IMPRESSION: Multicentric pneumonia. Borderline heart size without tung pulmonary edema. Assessment & Plan - Diagnosis (1) Pneumonia Qualifiers: Pneumonia type: due to unspecified organism Laterality: right Lung location: lower lobe of lung Qualified Code(s): J18.9 - Pneumonia, unspecified organism Is this a current diagnosis for this admission?: Yes (2) Aorto-iliac atherosclerosis Is this a current diagnosis for this admission?: Yes (3) Chronic kidney disease (CKD), stage III (moderate) Is this a current diagnosis for this admission?: Yes (4) Metabolic encephalopathy Is this a current diagnosis for this admission?: Yes (5) Squamous cell carcinoma of right lung Is this a current diagnosis for this admission?: Yes (6) Delirium Is this a current diagnosis for this admission?: Yes (7) Anemia Qualifiers: Anemia type: other cause Other causes of anemia: acute posthemorrhagic Qualified Code(s): D62 - Acute posthemorrhagic anemia Is this a current diagnosis for this admission?: Yes (8) Angiodysplasia of intestine with hemorrhage Is this a current diagnosis for this admission?: Yes (9) Acute hypoxemic respiratory failure Is this a current diagnosis for this admission?: Yes (10) ST elevation (STEMI) myocardial infarction Qualifiers: Involved coronary artery: unspecified coronary artery Qualified Code(s): I21.3 - ST elevation (STEMI) myocardial infarction of unspecified site Is this a current diagnosis for this admission?: Yes (11) SOBIA (acute kidney injury) Is this a current diagnosis for this admission?: Yes (12) Ischemic cardiomyopathy Is this a current diagnosis for this admission?: Yes - Time Time Spent with patient: Less than 15 minutes
--- NOTE | 2019-08-04 20:27 | PDOC DISCHARGE SUMMARY ---
Impression - Admit/DC Date/PCP Admission Date/Primary Care Provider: 07/13/19 09:42 YOLANDA VAZQUEZ MD Discharge Date: 08/05/19 - Discharge Diagnosis (1) Acute hypoxemic respiratory failure Is this a current diagnosis for this admission?: Yes (2) Pneumonia Is this a current diagnosis for this admission?: Yes (3) Aorto-iliac atherosclerosis Is this a current diagnosis for this admission?: Yes (4) Chronic kidney disease (CKD), stage III (moderate) Is this a current diagnosis for this admission?: Yes (5) Metabolic encephalopathy Is this a current diagnosis for this admission?: Yes (6) Squamous cell carcinoma of right lung Is this a current diagnosis for this admission?: Yes (7) Delirium Is this a current diagnosis for this admission?: Yes (8) Anemia Is this a current diagnosis for this admission?: Yes (9) Angiodysplasia of intestine with hemorrhage Is this a current diagnosis for this admission?: Yes (10) ST elevation (STEMI) myocardial infarction Is this a current diagnosis for this admission?: Yes (11) SOBIA (acute kidney injury) Is this a current diagnosis for this admission?: Yes (12) Ischemic cardiomyopathy Is this a current diagnosis for this admission?: Yes - Additional Information Resuscitation Status: Do Not Resuscitate Referrals: LES ROY MD [ACTIVE STAFF] - (1-2 weeks please call to arrange) YOLANDA VAZQUEZ MD [Primary Care Provider] - Prescriptions: Atorvastatin Calcium [Lipitor 80 mg Tablet] 80 mg PO QHS #90 tablet Amoxicillin/Potassium Clav [Augmentin 875-125 Tablet] 1 tab PO Q12 #14 tablet Home Medications: Fenofibrate Nanocrystallized [Tricor 145 mg Tablet] 145 mg PO QAM 05/11/16 Amlodipine/Valsartan/Hcthiazid [Exforge Hct 10-320-25 mg Tab] 1 tab PO DAILY 07/13/19 Metoprolol Tartrate [Lopressor 100 mg Tablet] 100 mg PO BID 07/13/19 Pramipexole Di-HCl [Mirapex] 0.125 mg PO QPM 07/13/19 Amoxicillin/Potassium Clav [Augmentin 875-125 Tablet] 1 tab PO Q12 #14 tablet 08/04/19 Atorvastatin Calcium [Lipitor 80 mg Tablet] 80 mg PO QHS #90 tablet 08/04/19 History of Present Illiness History of Present Illness: ITA WITT is a 74 year old female, Patient is well-known to me she was admitted for the management of post obstructive pneumonia, right lower lobe mass, shortness of breath. Patient came to the office on 07/11/2019 for follow- up evaluation, she complained of shortness of breath, Inoticed she has lost a lot of weight, she also admitted to the fact that she has lost a lot of weight, I was very concerned especially in this patient with tobacco use, she has a history of type 2 diabetes mellitus presently not on any medication, the hemoglobin A1c is persistently below 5. I suspected neoplasm because of the risk of smoking I requested for CAT scan of the chest, abdomen and pelvis with contrast. The CT chest revealed a solid mass involving the right lower lobe and the area, it measured approximately 6.2 x 3.5 cm also found is an area of cavitation within the inferior aspect. There is associated narrowing of the atelectasis. Also found was patchy areas of ground glass attenuation and consolidation within the right lower lobe likely postobstructive pneumonia. Small additional areas of groundglass attenuation within the right middle lobe on the right lower lobe.The CAT scan of the abdomen and pelvis with contrast showed atrophic right kidney no focal mass there is compensatory hypertrophy of the left kidney no solid mass also found was multifocal bilateral iliac disease with moderate to severe areas of narrowing. Hospital Course Hospital Course: Patient was admitted initially for the management of post obstructive pneumonia with a background of right lower lobe mass. She was treated empirically with intravenous antibiotic, Levaquin and cefepime. On admission a CT guided needle biopsy of the mass could not be obtained because she was on antiplatelet Plavix, she has a history of coronary artery disease.The Plavix was held for 5 days, she subsequently underwent CT-guided needle biopsy of the mass, the pathology was consistent with squamous cell carcinoma of the lung.When CT of the lung was obtained she also add CT scan of the abdomen and pelvis with contrast, The CT scan demonstrated atherosclerosis of the abdominal aorta and the iliac artery with stenosis of the iliac arterial system and also distal aortic artery because of these findings she was started on dual therapy with baby aspirin and Xarelto 2.5 mg 1 tablet 2 times a day with atorvastatin 80 mg p.o. daily. Unfortunately the pneumonia progresses with worsening leukocytosis, vancomycin was added empirically to cover MRSA organisms. There was slight improvement when vancomycin was added both clinically and from laboratory standpoint she had altered mental status with confusion and depressed sensorium MRI brain was obtained, it was negative for any metastasis, no stroke no bleed.Hospital course was prolonged and eventful patient pneumonia progressed now involving the left lung with infiltrate affecting both lobes of left lung, right upper lobe, right middle lobe, she required noninvasive positive pressure ventilation, BiPAP, she required BiPAP for prolonged period of time, she could not maintain adequate oxygen saturation without the BiPAP machine. She was not mechanically intubated because of the DNR status because of worsening pneumonia ID consultation was obtained, ID suggested that the antibiotic should be changed to Zyvox and Zosyn. Part of the reasoning for the change of antibiotic to Zyvox was because of worsening kidney function, she has atrophic right kidney, only 1 kidney is functioning she has CKD stage III the kidney function was declining vancomycin is potentially nephrotoxic, but it was changed to Zyvox this will cover MRSA, Zosyn will cover anaerobes, gram-positive and gram-negative.On this admission she also sustained acute ST elevated myocardial infarction consultation was obtained from cardiology she is a candidate for aggressive coronary intervention, she was seen by Dr. Slaughter cardiology she was treated with intravenous nitro drip, and aspirin. Before she sustained acute [place] she had a GI bleed with passage of melanotic stool felt to be due to Xarelto and aspirin, that was started for the vascular disease, she has a history of GI angiodysplasia.She is also deconditioned not because of the multiple comorbid conditions it was felt that she is not a candidate for aggressive therapy for cancer. She was seen by the oncology Dr. Yusuf, she recommend hospice care, patient is not a good candidate for cancer treatment, she has extremely poor condition including recent acute ST elevated myocardial infarction, active GI bleed due to angiodysplasia of GI tract, acute on chronic kidney disease, COPD.Family also requested for transfer to [place], I called [facility], she was declined in transfer, hospice/palliative care was recommended by [place].No specific pathogen was isolated, she was also tested for SARS-CoV-2, she was negative for that as well but patient pneumonia improved in the last couple of days to the extent that she could be discharged home Patient will require home oxygen, she desaturate very quickly without oxygen Discharge planning is making arrangement for oxygen,Patient family is wanting to get a second opinion for treatment for the cancer, I encouraged them to do so but she is not a good candidate for cancer treatment, she has poor function, recent acute ST elevated [place] that alone by itself makes cancer treatment very challenging but I understand patient Family anxiety.She was transfused with 5 units of blood due to GI bleed, consultation was requested for GI endoscopy she was considered high risk for endoscopy it is most likely upper GI bleed, this was melanotic, she has a history of GI angiodysplasia. A 2D echo that was done demonstrated ejection fraction 35% with hypokinesia in the inferior wall, the ST elevated [place] was in the inferior wall Physical Exam Vital Signs: Temp Pulse Resp BP Pulse Ox 97.5 F 118 H 18 140/79 H 97 08/04/19 16:20 08/04/19 19:00 08/04/19 16:20 08/04/19 16:20 08/04/19 16:20 Intake & Output 08/03/19 08/04/19 08/05/19 06:59 06:59 06:59 Intake Total 3098 1700 1400 Output Total 1750 2250 1025 Balance 1348 -550 375 Weight 70.3 kg 70.2 kg 70.2 kg General appearance: PRESENT: no acute distress Eye exam: PRESENT: PERRLA Respiratory exam: PRESENT: clear to auscultation kenney Cardiovascular exam: PRESENT: +S1, +S2 GI/Abdominal exam: PRESENT: soft Neurological exam: PRESENT: alert Results Laboratory Results: WBC 18.2 10^3/uL (4.0-10.5) H 08/03/19 20:10 RBC 3.54 10^6/uL (3.72-5.28) L 08/03/19 20:10 Hgb 9.9 g/dL (12.0-15.5) L D 08/03/19 20:10 Hct 28.7 % (36.0-47.0) L 08/03/19 20:10 MCV 81 fl (80-97) 08/03/19 20:10 MCH 28.0 pg (27.0-33.4) 08/03/19 20:10 MCHC 34.6 g/dL (32.0-36.0) 08/03/19 20:10 RDW 18.2 % (11.5-14.0) H 08/03/19 20:10 Plt Count 180 10^3/uL (150-450) 08/03/19 20:10 Lymph % (Auto) Not Reportable 08/02/19 14:26 [place] % (Auto) Not Reportable 08/02/19 14:26 Eos % (Auto) Not Reportable 08/02/19 14:26 Baso % (Auto) Not Reportable 08/02/19 14:26 Reticulocyte # 0.066 10^6/uL (0.028-0.122) 07/23/19 05:09 Absolute Neuts (auto) Not Reportable 08/02/19 14:26 Absolute Lymphs (auto) Not Reportable 08/02/19 14:26 Absolute Monos (auto) Not Reportable 08/02/19 14:26 Absolute Eos (auto) Not Reportable 08/02/19 14:26 Absolute Basos (auto) Not Reportable 08/02/19 14:26 Total Counted 100 08/02/19 14:26 Seg Neutrophils % Not Reportable 08/02/19 14:26 Seg Neuts % (Manual) 86 % (42-78) H 08/02/19 14:26 Band Neutrophils % 2 % (3-5) L 07/28/19 09:33 Lymphocytes % (Manual) 10 % (13-45) L 08/02/19 14:26 Monocytes % (Manual) 3 % (3-13) 08/02/19 14:26 Eosinophils % (Manual) 1 % (0-6) 08/02/19 14:26 Basophils % (Manual) 0 % (0-2) 08/02/19 14:26 Abs Neuts (Manual) 15.0 10^3/uL (1.7-8.2) H 08/02/19 14:26 Abs Lymphs (Manual) 1.7 10^3/uL (0.5-4.7) 08/02/19 14:26 Abs Monocytes (Manual) 0.5 10^3/uL (0.1-1.4) 08/02/19 14:26 Absolute Eos (Manual) 0.2 10^3/uL (0.0-0.6) 08/02/19 14:26 Abs Basophils (Manual) 0.0 10^3/uL (0.0-0.2) 08/02/19 14:26 Nucleated RBCs 1 /100 WBC (0) 07/28/19 09:33 Hypersegmented Neuts PRESENT 07/24/19 18:21 Toxic Vacuolation PRESENT 07/18/19 11:23 Clumped Platelets PRESENT 07/28/19 09:33 Platelet Comment ADEQUATE 08/02/19 14:26 Polychromasia SLIGHT 08/01/19 19:03 Hypochromasia 1+ 07/28/19 09:33 Poikilocytosis 1+ 08/02/19 14:26 Anisocytosis 1+ 08/02/19 14:26 Microcytosis SLIGHT 08/02/19 14:26 Target Cells 1+ 08/02/19 14:26 Tear Drop Cells SLIGHT 07/28/19 09:33 Ovalocytes SLIGHT 08/01/19 19:03 [place] Cells 1+ 07/25/19 11:23 Schistocytes SLIGHT 07/28/19 09:33 Retic Count (auto) 1.77 % (0.66-2.85) 07/23/19 05:09 PT 15.9 SEC (11.4-15.4) H 07/17/19 08:38 INR 1.26 07/17/19 08:38 APTT 44.2 SEC (23.5-35.8) H 07/17/19 08:38 Sodium 134.7 mmol/L (137-145) L 08/03/19 09:57 Potassium 4.3 mmol/L (3.6-5.0) 08/03/19 09:57 Chloride 104 mmol/L (98-107) 08/03/19 09:57 Carbon Dioxide 22 mmol/L (22-30) 08/03/19 09:57 Anion Gap 9 (5-19) 08/03/19 09:57 BUN 76 mg/dL (7-20) H 08/03/19 09:57 Creatinine 1.40 mg/dL (0.52-1.25) H 08/03/19 09:57 Est GFR ( Amer) 45 (>60) L 08/03/19 09:57 Est GFR (MDRD) Non-Af 37 (>60) L 08/03/19 09:57 Glucose 107 mg/dL (75-110) 08/03/19 09:57 POC Glucose 119 mg/dL (70-110) H 07/28/19 03:23 Calcium 8.7 mg/dL (8.4-10.2) 08/03/19 09:57 Magnesium 2.2 mg/dL (1.6-2.3) 07/28/19 16:00 Iron 18.9 ug/dL (37-170) L 07/23/19 05:09 TIBC 185 ug/dL (250-450) L 07/23/19 05:09 % Saturation 10 % 07/23/19 05:09 Ferritin 159.00 ng/mL (11.1-264.0) 07/23/19 05:09 Total Bilirubin 0.8 mg/dL (0.2-1.3) 08/02/19 14:26 Direct Bilirubin 0.4 mg/dL (0.0-0.4) 08/02/19 14:26 Neonat Total Bilirubin Not Reportable 08/02/19 14:26 Neonat Direct Bilirubin Not Reportable 08/02/19 14:26 Neonat Indirect Bili Not Reportable 08/02/19 14:26 AST 43 U/L (14-36) H 08/02/19 14:26 ALT 16 U/L (<35) 08/02/19 14:26 Alkaline Phosphatase 56 U/L (38-126) 08/02/19 14:26 Creatine Kinase 327 U/L (30-135) H 07/28/19 16:00 CK-MB (CK-2) 66.50 ng/mL (<4.55) H 07/28/19 16:00 Troponin I 7.020 ng/mL 07/31/19 05:43 Total Protein 4.8 g/dL (6.3-8.2) L 08/02/19 14:26 Albumin 2.2 g/dL (3.5-5.0) L 08/02/19 14:26 Vitamin B12 > 1000.0 pg/mL (239-931) H 07/23/19 05:09 Folate 4.49 ng/mL (>2.76) 07/23/19 05:09 Urine Color STRAW 07/13/19 21:05 Urine Appearance CLEAR 07/13/19 21:05 Urine pH 6.0 (5.0-9.0) 07/13/19 21:05 Ur Specific Collins 1.006 07/13/19 21:05 Urine Protein 100 mg/dL (NEGATIVE) H 07/13/19 21:05 Urine Glucose (UA) NEGATIVE mg/dL (NEGATIVE) 07/13/19 21:05 Urine Ketones NEGATIVE mg/dL (NEGATIVE) 07/13/19 21:05 Urine Blood SMALL (NEGATIVE) H 07/13/19 21:05 Urine Nitrite NEGATIVE (NEGATIVE) 07/13/19 21:05 Urine Bilirubin NEGATIVE (NEGATIVE) 07/13/19 21:05 Urine Urobilinogen NEGATIVE mg/dL (<2.0) 07/13/19 21:05 Ur Leukocyte Esterase NEGATIVE (NEGATIVE) 07/13/19 21:05 Urine WBC (Auto) 1 /HPF 07/13/19 21:05 Urine RBC (Auto) 3 /HPF 07/13/19 21:05 Squamous Epi Cells Auto <1 /HPF 07/13/19 21:05 Urine Mucus (Auto) RARE /LPF 07/13/19 21:05 Urine Ascorbic Acid NEGATIVE (NEGATIVE) 07/13/19 21:05 Stool Occult Blood POSITIVE (NEGATIVE) 07/23/19 12:55 Time Trough Drawn 1728 07/25/19 17:28 Vancomycin Trough 21.6 ug/mL (5.0-20.0) H 07/25/19 17:28 COVID-19 Source Cancelled 07/23/19 18:44 COVID-19 ([facility]) Cancelled 07/23/19 18:44 Influenza A (Rapid) NEGATIVE (NEGATIVE) 07/23/19 18:42 Influenza B (Rapid) NEGATIVE (NEGATIVE) 07/23/19 18:42 SARS-CoV-2 (PCR) NEGATIVE (NEGATIVE) 07/23/19 18:44 Group A Strep Rapid NEGATIVE (NEGATIVE) 07/23/19 18:40 Slides for Path Review PATHOLOGIST REVIEWED 07/28/19 09:33 Blood Type B POSITIVE 08/03/19 11:58 Antibody Screen NEGATIVE 08/03/19 11:58 Crossmatch See Detail 08/03/19 11:58 07/28/19 07/28/19 07/28/19 04:02 09:33 16:00 CK-MB (CK-2) 2.08 42.40 H 66.50 H Troponin I 0.070 2.400 8.200 07/31/19 05:43 CK-MB (CK-2) Troponin I 7.020 Impressions: Chest X-Ray 07/17/19 00:00 IMPRESSION: 1. No postprocedural pneumothorax. 2. New parenchymal opacity in the left upper lobe - correlate with clinical findings to exclude a pneumonia. Chest X-Ray 07/17/19 00:00 IMPRESSION: No postprocedural pneumothorax. Head MRI 07/17/19 00:00 IMPRESSION: 1. No acute intracranial hemorrhage, mass, or evidence of acute territorial infarct/ischemia. 2. Moderate chronic small vessel ischemic change. EVIDENCE OF ACUTE STROKE: NO. Lung Biopsy CT 07/17/19 11:00 IMPRESSION: Successful CT-guided biopsy of the cavitary mass in the right lower lobe as detailed above. Chest X-Ray 07/20/19 00:00 IMPRESSION: Rehydration versus progressing pneumonia or metastatic disease in the left upper lobe. Chest CT 07/23/19 00:00 IMPRESSION: 1. New multifocal areas of ground-glass attenuation in both lungs suspicious for infectious process. Commonly reported imaging features of Covid 19 pneumonia are present. Other processes such as influenza pneumonia and organizing pneumonia, as can be seen with drug toxicity and connective tissue disease, can cause a similar imaging pattern. 2. Cavitary pulmonary mass in the medial right lower lobe is unchanged from prior. Chest X-Ray 07/26/19 00:00 IMPRESSION: Bilateral infiltrates, similar to the CT on 07/23/2019 Chest X-Ray 07/31/19 00:00 IMPRESSION: Persistent multifocal/ multi-lobar opacities that involve the right upper, left upper and left lower lobes; compared to the radiograph from 07/26/2019, the degree of opacification has decreased. Chest X-Ray 08/01/19 00:00 IMPRESSION: Multicentric pneumonia. Borderline heart size without tung pulmonary edema. Stroke Is this a Stroke Patient?: No Acute Heart Failure - Is this a Heart Failure Patient?: No
[2019-08-04] MEDS: ATORVASTATIN CALCIUM 80 MG TABLET PO SCH (21:33)
[2019-08-05] MEDS: RINGERS SOLUTION,LACTATED 1,000 ML IV PRN (04:31)
[2019-08-05] MEDS: PIPERACILLIN SODIUM/TAZOBACTAM 2.25 GM in NORMAL SALINE 50 ML IV SCH ×2 (05:09→11:04)
[2019-08-05] MEDS: FENOFIBRATE NANOCRYSTALLIZED 145 MG TABLET PO SCH (08:17)
[2019-08-05] MEDS: METOPROLOL SUCCINATE 50 MG TAB.SR.24H PO SCH (09:29)
[2019-08-05] MEDS: HYDROCHLOROTHIAZIDE 25 MG TABLET PO SCH (09:30)
[2019-08-05] MEDS: VALSARTAN 160 MG TABLET PO SCH (09:30)
[2019-08-05] MEDS: AMLODIPINE BESYLATE 10 MG TABLET PO SCH (09:30)
[2019-08-05] MEDS: NITROGLYCERIN 15 MG (0.6 MG/1 HR) PATCH.TD24 TD SCH (09:30)
[2019-08-05] MEDS: LINEZOLID 600 MG/300 ML RTUPB IV SCH (09:31)
--- NOTE | 2019-08-05 09:59 | Progress Note ---
Provider Note Provider Note: Patient is currently doing well Patient's denied any complaints Patient's will discharge order today Patient within normal exams No nursing concern Discussed with the patient's family have a concern about to oxygen patient have a lung cancer and hypoxia and thus the reason patient is qualified for the home oxygen's Patient is concerned about 2-second opinion discussed with the patient's daughter about to talk to the oncologist Dr. Yusuf and I talked myself make outpatient arrangement to go to the [facility] or [place] All answers to the family today No other concerns from the family
--- NOTE | 2019-08-05 10:04 | Progress Note ---
Provider Note Provider Note: I received a call from Dr. Lake asking me to call patient's daughter. I was able to review chart, ut I have not seen the patient today. She is being discharge to home with family. I have arranged for patient to follow-up with me in 1-2 weeks for further treatment and to see if there is anything else that she needs. Family has declined Hospice services. They have asked for a second opinion from oncology. I am happy to arrange this [place] as an outpatient. However, I will need to know where the family would like to go for a second opinion. I tried to call the number in the chart, but this was not a working number for next of kin. I was also given contact info for daughter Maria Fernanda [phone]. However, mailbox is full and I cannot leave a message. I am happy to speak to the patient or family at any time. They have my contact info on the DC instructions.
[2019-08-05 15:56] VITALS: BP 131/66
== END 2019-08-05 17:30 | disposition home health service (06) | DRG 180 ==
LOC: 3S 09:42
PROVIDERS: ADMIT Internal Medicine; ATTEND Internal Medicine
PROC: 0BBF3ZX Excision of Right Lower Lung Lobe, Percutaneous Approach, Diagnostic (ICD-10-PCS; principal; 2019-07-17)
PROC: 5A09557 Assistance with Respiratory Ventilation, Greater than 96 Consecutive Hours, Continuous Positive Airway Pressure (ICD-10-PCS; 2019-07-24)
PROC: 30233N1 Transfusion of Nonautologous Red Blood Cells into Peripheral Vein, Percutaneous Approach (ICD-10-PCS; 2019-07-25)
DX: C34.31 Malignant neoplasm of lower lobe, right bronchus or lung (principal); J18.9 Pneumonia, unspecified organism; J96.01 Acute respiratory failure with hypoxia; G93.41 Metabolic encephalopathy; K55.21 Angiodysplasia of colon with hemorrhage; I21.19 ST elevation (STEMI) myocardial infarction involving other coronary artery of inferior wall; N17.9 Acute kidney failure, unspecified; K92.1 Melena; D62 Acute posthemorrhagic anemia; E22.2 Syndrome of inappropriate secretion of antidiuretic hormone; N18.3 Chronic kidney disease, stage 3 (moderate); I70.0 Atherosclerosis of aorta; R41.0 Disorientation, unspecified; I25.5 Ischemic cardiomyopathy; R63.4 Abnormal weight loss; E11.22 Type 2 diabetes mellitus with diabetic chronic kidney disease; I12.9 Hypertensive chronic kidney disease with stage 1 through stage 4 chronic kidney disease, or unspecified chronic kidney disease; I70.209 Unspecified atherosclerosis of native arteries of extremities, unspecified extremity; T45.515A Adverse effect of anticoagulants, initial encounter; E78.5 Hyperlipidemia, unspecified; F17.210 Nicotine dependence, cigarettes, uncomplicated; Z79.899 Other long term (current) drug therapy; Z79.02 Long term (current) use of antithrombotics/antiplatelets; Z99.81 Dependence on supplemental oxygen; Z03.818 Encounter for observation for suspected exposure to other biological agents ruled out
CPT/HCPCS: 32405; 36415; 36430; 70553; 71045; 71260; 74177; 80048; 80053; 80076; 80202; 81001; 82272; 82550; 82553; 82565; 82607; 82728; 82746; 82962; 83540; 83550; 83735; 84132; 84484; 85025; 85027; 85045; 85610; 85730; 86850; 86900; 86901; 86920; 87040; 87070; 87086; 87635; 87804; 87880; 88305; 88313; 88341; 88342; 93005; 93010; 93306; 94660; A9576; J0692; J1940; J1956; J2020; J2250; J2543; J3010; J3370; J3430; J3490; J7030; J7050; J7060; J7120; P9016